=== PATIENT | female | born 1940 | race Caucasian/White ===

== ENCOUNTER 2020-06-10 13:59 | Outpatient (CLI) | payer MEDICARE, BC, SELFPAY ==
--- NOTE | ~2020-06-10 | MM_ITS ---
EXAMINATION: MM screening [facility] w bibiana HISTORY: Screening TECHNIQUE: Craniocaudal and mediolateral oblique 3-D tomosynthesis images were obtained and synthetic 2-D images were generated. CAD analysis was submitted and interpreted. COMPARISON: Comparison to multiple prior studies sequentially, with oldest reviewed study dated 02/28. BREAST PARENCHYMAL COMPOSITION: Breast composed of scattered areas of fibroglandular density FINDINGS: There is no evidence of suspicious mass, calcification, or architectural distortion to sugg est malignancy in either breast. There has been no suspicious interval change. IMPRESSION: 1. No mammographic evidence of malignancy. 2. Recommend routine screening mammography in one year. BI-RADS Category 1: Negative Reviewed, dictated and finalized at location A. 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
== END 2020-06-10 14:00 | disposition home or self-care (01) ==
LOC: ANHIMG 14:08
DX: Z12.31 Encounter for screening mammogram for malignant neoplasm of breast (principal)
CPT/HCPCS: 77063; 77067

== ENCOUNTER 2021-08-25 09:49 | Outpatient (CLI) | payer MEDICARE, BC, SELFPAY ==
--- NOTE | ~2021-08-25 | MM_ITS ---
EXAMINATION: MM screening [facility] BI w bibiana HISTORY: Screening mammogram TECHNIQUE: Craniocaudal and mediolateral oblique 3-D tomosynthesis images were obtained and synthetic 2-D images were generated. CAD analysis was submitted and interpreted. COMPARISON: 06/10/2020, 03/28/2019, 03/23/2018 BREAST PARENCHYMAL COMPOSITION: There are scattered areas of fibroglandular density. FINDINGS: There is no suspicious mass, calcification, or architectural distortion to suggest malignan cy in either breast. There has been no suspicious interval change. IMPRESSION: 1. No mammographic evidence of malignancy. 2. Recommend routine screening mammography in one year. BI-RADS Category 1: Negative Reviewed, dictated and finalized at location A.
== END 2021-08-25 09:50 | disposition home or self-care (01) ==
LOC: ANHIMG 09:52
PROVIDERS: Visit Provider Obstetrics & Gynecology
DX: Z12.31 Encounter for screening mammogram for malignant neoplasm of breast (principal)
CPT/HCPCS: 77063; 77067

== ENCOUNTER 2022-10-22 09:29 | Outpatient (CLI) | payer MEDICARE, BC, SELFPAY ==
--- NOTE | ~2022-10-22 | MM_ITS ---
EXAMINATION: MM screening [facility] BI w bibiana HISTORY: Screening mammogram TECHNIQUE: Craniocaudal and mediolateral oblique 3-D tomosynthesis images were obtained and synthetic 2-D images were generated. CAD analysis was submitted and interpreted. COMPARISON: 08/25/2021, 06/10/2020, 03/28/2019 BREAST PARENCHYMAL COMPOSITION: There are scattered areas of fibroglandular density. FINDINGS: No suspicious mass, calcification, or architectural distortion are identified in either betsy ast to suggest malignancy. There has been no suspicious interval change. IMPRESSION: 1. No mammographic evidence of malignancy. 2. Recommend routine screening mammography while the patient remains in good health. BI-RADS Category 1: Negative Reviewed, dictated and finalized at location A. IMPRESSION: 1. No mammographic evidence of malignancy. 2. Recommend routine screening mammography while the patient remains in good he alth. BI-RADS Category 1: Negative
== END 2022-10-22 09:30 | disposition home or self-care (01) ==
PROVIDERS: Visit Provider Obstetrics & Gynecology
DX: Z12.31 Encounter for screening mammogram for malignant neoplasm of breast (principal)
CPT/HCPCS: 77063; 77067

== ENCOUNTER 2023-04-02 05:29 | Day surgery (SDC) | payer MEDICARE, BC, SELFPAY ==
[2023-04-02] VITALS (16 sets, daily range): BP systolic 109–145; BP diastolic 68–95; PULSE 81–118; RESP 14–221; TEMP 36.9; O2SAT 90–96; BMI 41.0
[2023-04-02 09:46] LABS: Basophils Percent Auto 0.4 % (0.2-1.2); Eosinophils Absolute Auto 0.2 K/mm3 (0-0.3); Hematocrit 38.8 % (37.0-47.0); Hemoglobin 12.5 g/dL (12.0-15.0); Immature Granulocyte Absolute 0.02 K/mm3 (0.00-0.031); Immature Granulocyte Percent A 0.4 % (0-0.5); Lymphocytes Absolute Auto 0.89 K/mm3 (0.9-3.2); Lymphocytes Percent Auto 16.4 % (18.3-44.2); Mean Corpuscular HGB Conc 32.2 g/dl (32-36); Mean Corpuscular Hemoglobin 28.1 pg (26-34); Mean Corpuscular Volume 87.2 fl (80-100); Mean Platelet Volume 9.1 fl (7.4-10.4); Monocytes Absolute Auto 0.4 K/mm3 (0.1-0.6); Neutrophils Absolute Auto 3.9 K/mm3 (1.3-6.7); Neutrophils Percent Auto 71.8 % (45.5-73.1); Platelet Count Result 200 k/mm3 (150-375); Red Blood Count 4.45 M/mm3 (4.2-5.4); Red Cell Distribution Width 14.6 % (11.5-14.5); White Blood Count 5.4 K/mm3 (4.5-10.0)
--- NOTE | 2023-04-02 09:49 | WPDMODSED ---
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 Procedure to be performed/Plan: Left heart catheterization Allergies Allergy/AdvReac Type Severity Reaction Status Date / Time Penicillins Allergy Severe Rash Verified 04/02/23 09:29 oxycodone [From Tylox] AdvReac Unknown Nausea Verified 04/02/23 09:29 Home Medications Medication Instructions Recorded Confirmed Type albuterol sulfate 90 mcg/actuation 2 inh inhalation Q4H PRN Shortness 01/21/22 04/01/23 History aerosol inhaler (ProAir HFA) Of Breath cholecalciferol (vitamin D3) 250 2,000 mcg PO DAILY 01/21/22 04/01/23 History mcg (10,000 unit) capsule denosumab 60 mg/mL subcutaneous 60 mg subcut [id number] 01/21/22 04/01/23 History syringe (Prolia) fluticasone furoate 100 1 inh inhalation DAILY 01/21/22 04/02/23 History mcg-vilanterol 25 mcg/dose inhalation powder (Breo Ellipta) hydrocodone 5 mg-acetaminophen 325 1 tablet PO QHS PRN Pain 01/21/22 04/02/23 History mg tablet isosorbide mononitrate 120 mg 60 mg PO DAILY 01/21/22 04/02/23 History tablet,extended release 24 hr losartan 100 mg tablet 100 mg PO DAILY 01/21/22 04/02/23 History clopidogrel 75 mg tablet 75 mg PO DAILY 04/01/23 04/02/23 History finasteride 5 mg tablet 5 mg PO DAILY 04/01/23 04/01/23 History metoprolol tartrate 25 mg tablet 25 mg PO BID 04/01/23 04/02/23 History Current Medications: Active Medications Sodium Chloride (Normal Saline Iv) 500 mls @ 100 mls/hr IV CONT .Q5H GABRIEL Sedation/Anesthesia: No previous sedation/anesthesia problems (including family history). [facility] Past Medical History Medical History Hypertension Joint pain Sleep apnea CPAP machine Surgical History Surgical History History of arthroscopic knee surgery (~01/2000) History of colon resection (~11/2005) diverticulosis History of cone biopsy of cervix (~1981) History of gastrointestinal surgery 2002 hemorrhoid banding History of knee replacement 11/28/09 right knee left knee at a later date History of laminectomy (~09/28/08) History of spinal fusion (~10/28/16) L4/L5/S1 History of total vaginal hysterectomy (~2005) total vaginal hysterectomy/posterior colporrhapy--focal squamous metaplasia cx, subserosal leiomyma uteri History of tubal ligation (~1979) Family History Family History Mother Hypertension Chronic obstructive lung disease Sibling Hypertension brother Squamous cell carcinoma of skin brother Father Heart disease Alcohol abuse Social History Social History (Updated 01/21/22 @ 10:47 by Dee Segura Leroy) Smoking status: Never smoker Alcohol intake: current Alcohol use details: 2 x year Substance use: never Substance use type: does not use Living arrangements: other Additional living arrangements comments: Occupation/Education: retired Gender identity (if verbalized by the patient): Female Sexual Orientation (if Verbalized by the Patient): Straight or Heterosexual Mod Sed Physical Exam Physical Exam Pre Procedural Exam: Normal: Throat, Airway, Lungs, Heart Rate, Heart Rhythm, Neuro Exam and Extremities and Variation: Appearance (Morbidly obese woman no apparent distress) and Heart Size (PMI not palpable) Hours since solid foods: 12 Hours since liquid intake: 12 Mallampati Classification: class III Internal Medicine - PN: Obj Da Meds/Results Medications: Active Medications Generic Name Dose Route Start Last Admin Trade Name Freq PRN Reason Stop Dose Admin Sodium Chloride 500 mls @ 100 mls/hr 04/02/23 09:00 Normal Saline Iv IV CONT .Q5H GABRIEL Labs 04/02/23 09:14 04/02/23 09:23
[2023-04-02 09:57] LABS: Prothrombin Time 13.7 Seconds (11.1-14.7)
[2023-04-02 09:57] LABS: Alanine Aminotransferase 28 U/L (6-35); Albumin Level 4.5 g/dL (3.5-5.1); Alkaline Phosphatase 44 U/L (38-126); Anion Gap 10 mmol/L (8-16); Aspartate Amino Transferase 25 U/L (14-36); Bilirubin,Total 1.3 mg/dL (0.2-1.3); Blood Urea Nitrogen 12 mg/dL (7-17); Calcium 9.8 mg/dL (8.4-10.2); Carbon Dioxide 26 mmol/L (22-30); Chloride 99 mmol/L (98-107); Estimated Glomerular Filt Rate > 60; Glucose 104 mg/dL (65-110); Potassium 3.9 mmol/L (3.4-5.0); Sodium 135 mmol/L (137-145)
--- NOTE | 2023-04-02 11:01 | P.PCNCC_ITS ---
Cardiac Cath Procedure Note Date of procedure:: 04/02/23 Performing physician:: Marquis Alvarado MD Indication:: history of mild coronary artery disease ventricular arrhythmias abnormal nuclear stress test Brief clinical history:: this is an 83-year-old woman who apparently is but found to have mild coronary disease a couple of years ago angiographically. She is now under the care of 1 of my partners and has been found to have nonsustained ventricular tachycardia. Nuclear stress test suggests evidence of anterior apical ischemia in this setting a follow-up angiogram has been recommended. Procedure Procedure performed:: Coronary angiography Sedation/Medication given:: fentanyl 50 mg Versed 2 mg case start time 1029 a.m. case end time 10:46 a.m. sedation provided by Tarik Rojas RN, trained observer Access site:: right femoral artery Estimated blood loss:: 25 cc Procedure note:: patient was brought to the cardiac catheterization lab in the postabsorptive state where the right femoral triangle was prepped and draped in the usual fashion. Anesthesia was provided with 15 cc of lidocaine infiltrated locally. Using the modified Seldinger technique the femoral artery was punctured and a 5 Azerbaijani mass ocular sheath was placed. After this left heart catheterization was carried out. I used a 5 Azerbaijani angled pigtail catheter to measure left-sided hemodynamics and to inject the left ventriculogram in the [place] projection following this the pigtail catheter was removed. I injected the left coronary artery in multiple projections using a 5 Azerbaijani FL4 catheter. After this a 5 Azerbaijani JR4 catheter was used to engage and inject the right coronary artery in orthogonal projections. Following this the cineangiograms were reviewed and the case was terminated. An angiogram was performed to the femoral artery through the sheath and it was determined that the sheath will be removed with direct manual compression. The procedure was well tolerated and uncomplicated. Results 1. Hemodynamics central aortic pressure is 162 over 78 left ventricle 162/3 end-diastolic pressure 24 there is no gradient on pullback across the aortic valve. The left main coronary artery is widely patent proximal left anterior descending is moderately calcified. The LAD however is free of significant lesions. There are mild luminal irregularities but no flow- limiting stenosis is seen the vessel is patent down to the apex. The circumflex is a large caliber vessel giving rise to OM branches and 2 posterior branches. The circumflex system is smooth and angiographically free of disease. The right coronary artery is codominant terminating in an RPDA. The right coronary is medium in size in the 2nd portion of the RCA there is modest 20-30% stenosis. Left ventriculogram: the left ventricle is mildly dilated there is mild global systolic hypokinesis identified with an ejection fraction globally of 40% by visual estimation. Findings:: As above Conclusion:: 1. codominant coronary artery circulation with no angiographically significant coronary lesions. Approximately 30% stenosis is seen in the mid RCA, calcification in the proximal LAD but no stenotic lesions are seen 2. mild LV enlargement with global hypokinesia ejection fraction in the vicinity of 40% by visual estimation Marquis Alvarado MD [facility]
== END 2023-04-02 16:59 | disposition home or self-care (01) ==
PROVIDERS: Visit Provider Specialist
PROC: 4A023N7 Measurement of Cardiac Sampling and Pressure, Left Heart, Percutaneous Approach (ICD-10-PCS; CPT 93452; principal; 2023-04-02 10:30)
DX: I25.10 Atherosclerotic heart disease of native coronary artery without angina pectoris (principal); I47.20 Ventricular tachycardia, unspecified; R94.39 Abnormal result of other cardiovascular function study; I10 Essential (primary) hypertension; G47.30 Sleep apnea, unspecified; Z98.1 Arthrodesis status; Z79.51 Long term (current) use of inhaled steroids; Z79.02 Long term (current) use of antithrombotics/antiplatelets
CPT/HCPCS: 36415; 80053; 85025; 85610; 93458; C1887; C1894; J1644; J2250; J3010; J7040

== ENCOUNTER 2024-05-25 13:30 | Emergency (ER) | payer MEDICARE, BC, SELFPAY ==
[2024-05-25 14:17] VITALS: BP 170/82; PULSE 74; RESP 16; TEMP 36.4; O2SAT 96
--- NOTE | 2024-05-25 14:24 | ED_ITS ---
HPI - Female Genitourinary General Chief complaint: Urogenital-Female Stated complaint: Bladder infection Time Seen by Provider: 05/25/24 14:24 Source: patient Mode of arrival: ambulatory Limitations: no limitations History of Present Illness HPI Narrative: Olive is an 84-year-old female patient presenting to the clinic today with complaints of possible urinary tract infection. She reports she has tested positive for influenza a and has been having some body aches and chills. She reports over the last 1-2 days she has developed some urinary symptoms with burning with urination and urinary frequency. Denies any back pain or abdominal pain. Related Data Home Medications ?Medication ?Instructions ?Recorded ?Confirmed ?Last Taken ?Type albuterol sulfate 90 mcg/actuation 2 inh inhalation Q4H PRN Shortness 01/21/22 05/25/24 03/29/23 09:00 History aerosol inhaler (ProAir HFA) Of Breath cholecalciferol (vitamin D3) 250 2,000 mcg PO DAILY 01/21/22 05/25/24 04/01/23 09:00 History mcg (10,000 unit) capsule denosumab 60 mg/mL subcutaneous 60 mg subcut [id number] 01/21/22 05/25/24 10/29/22 History syringe (Prolia) hydrocodone 5 mg-acetaminophen 325 1 tablet PO QHS PRN Pain 01/21/22 05/25/24 04/02/23 History mg tablet isosorbide mononitrate 120 mg 60 mg PO DAILY 01/21/22 05/25/24 04/02/23 History tablet,extended release 24 hr losartan 100 mg tablet 100 mg PO DAILY 01/21/22 05/25/24 04/02/23 History metoprolol tartrate 25 mg tablet 25 mg PO BID 04/01/23 05/25/24 04/02/23 History fluocinonide 0.05 % topical topical 01/24/24 01/24/24 Unknown History solution furosemide 20 mg tablet mg PO 01/24/24 03/21/24 Unknown History pentoxifylline 400 mg mg PO 01/24/24 03/21/24 Unknown History tablet,extended release prasugrel 10 mg tablet mg PO 01/24/24 03/21/24 Unknown History triamcinolone acetonide 0.1 % applic topical 01/24/24 03/21/24 Unknown History topical cream finasteride 5 mg tablet mg 05/25/24 Unknown History oseltamivir 75 mg capsule mg 05/25/24 Unknown History prednisone 20 mg tablet mg 05/25/24 Unknown History Allergies Allergy/AdvReac Type Severity Reaction Status Date / Time Penicillins Allergy Severe Rash Verified 05/25/24 14:06 oxycodone (From Tylox) AdvReac Unknown Nausea Verified 05/25/24 14:06 Review of Systems Review of Systems: Pertinent positives per HPI. Patient denies any fever, chills, rash, headache, visual changes, dizziness, cough, runny nose, sore throat, shortness of breath, chest pain, palpitations, nausea, vomiting, diarrhea, constipation, abdominal pain PMFSH Past Medical History Medical History Hypertension Joint pain Sleep apnea CPAP machine Surgical History Surgical History History of arthroscopic knee surgery (~01/2000) History of colon resection (~11/2005) diverticulosis History of cone biopsy of cervix (~1981) History of gastrointestinal surgery 2002 hemorrhoid banding History of knee replacement 11/28/09 right knee left knee at a later date History of laminectomy (~09/28/08) History of spinal fusion (~10/28/16) L4/L5/S1 History of total vaginal hysterectomy (~2005) total vaginal hysterectomy/posterior colporrhapy--focal squamous metaplasia cx, subserosal leiomyma uteri History of tubal ligation (~1979) Family History Family History Mother Hypertension Chronic obstructive lung disease Sibling Hypertension brother Squamous cell carcinoma of skin brother Father Heart disease Alcohol abuse Social History Social History Smoking status: Never smoker Alcohol intake: current Alcohol use details: 2 x year Substance use: never Substance use type: does not use Do You Feel Safe in your Home?: Yes Lack of Transportation: No Lack of Food: Never True Current Housing: I Have Housing Concerned About Future Housing: No Difficulty Paying Gas/Electric Bills: No Difficulty Paying for Meds: No Currently Unemployed: No Education: High School Diploma/GED Difficulty w/ Childcare or Family Care: No Living arrangements: other Additional living arrangements comments: Occupation/Education: retired Gender identity (if verbalized by the patient): Female Sexual Orientation (if Verbalized by the Patient): Straight or Heterosexual Comments At the time of my signature, I reviewed and agree with the nursing past medical, surgical, social, and family history. There is no relevant family history pertinent to the patient complaint. Exam Narrative: General: Well-developed, well nourished, in no apparent distress. Head: Normocephalic, atraumatic. Cardio: Regular rate and rhythm, s1 and s2 normal, no murmur appreciated. Resp: Clear to auscultation bilaterally, no rhonchi, rales, wheezing or rubs. Abdomen: Soft, pliable, bowel sounds present in all quadrants, non-tender to palpation, no organomegly, no CVAT tenderness. Course Course Emergency Course: Portions of this record may have been created with voice recognition software. Level of Care: Express Care Visit Vital Signs Vital signs: Vital Signs Temperature 36.4 C 05/25/24 14:17 Pulse Rate 74 05/25/24 14:17 Respiratory Rate 16 05/25/24 14:17 Blood Pressure 170/82 H 05/25/24 14:17 Pulse Oximetry 96 05/25/24 14:17 Temperature 36.4 C 05/25/24 14:17 Pulse Rate 74 05/25/24 14:17 Respiratory Rate 16 05/25/24 14:17 Blood Pressure 170/82 H 05/25/24 14:17 Pulse Oximetry 96 05/25/24 14:17 Vital signs reviewed MDM - Female Genitourinary MDM Narrative Medical decision making narrative: At the time of visit patient is resting comfortably on the exam table. Patient appears to be nontoxic. Labs: Urinalysis shows trace of leukocytes. Will send urine for culture. Plan: I suspect patient has a UTI. Supportive measures were discussed with the patient and they voiced understanding discharge instructions and agrees to treatment plan. Return precautions reviewed Differential Diagnosis Differential diagnosis: Likely urinary tract infection and cystitis Lab Data Labs: Lab Results 05/25/24 Range/Units 14:28 POC Urine Color Yellow POC Urine Clarity Clear POC Urine pH 6.0 POC Ur Specif [place] 1.020 POC Urine Protein Negative (Negative) POC Ur Glucose (UA) Negative (Negative) POC Urine Ketones Negative (Negative) POC Urine Blood Negative (Negative) POC Urine Nitrite Negative (Negative) POC Urine Bilirubin Negative (Negative) POC Urine Urobilinogen 0.2 POC U Leukocyte Esteras Trace (Negative) Discharge Plan Discharge Clinical Impression: Urinary tract infection Qualifiers: Urinary tract infection type: acute cystitis Hematuria presence: without hematuria Qualified Code(s): N30.00 - Acute cystitis without hematuria Patient Disposition: Home, Self-Care Condition: Stable Instructions: Antibiotic Form, Urinary Tract Infection in Women (ED) Additional Instructions: Take Macrobid as prescribed Urinalysis shows trace of leukocytes. We will send for culture Increase fluids and stay well hydrated Wipe front to back. May use wet wipes. Avoid tub baths If sexually active- pee before and after intercourse. Wear cotton panties Avoid tight clothing up against the genitals Follow up with your PCP in 1 week if symptoms persist. Patient Language: British Prescriptions: New nitrofurantoin monohyd/m-cryst [Macrobid] 100 mg capsule 100 mg PO Q12H 5 Days Qty: 10 0RF Rx Instructions: must administer with a meal/food No Action finasteride 5 mg tablet prednisone 20 mg tablet oseltamivir 75 mg capsule fluocinonide 0.05 % solution topical furosemide 20 mg tablet PO pentoxifylline 400 mg tablet extended release PO prasugrel 10 mg tablet PO triamcinolone acetonide 0.1 % cream topical hydrocodone-acetaminophen 5-325 mg tablet 1 tablet PO QHS PRN (Reason: Pain) Rx Instructions: takes 1 during day, 1/2 at night losartan 100 mg tablet 100 mg PO DAILY isosorbide mononitrate 120 mg tablet extended release 24 hr 60 mg PO DAILY albuterol sulfate [ProAir HFA] 90 mcg/actuation HFA aerosol inhaler 2 inh inhalation Q4H PRN (Reason: Shortness Of Breath) Prolia 60 mg/mL syringe 60 mg subcut [id number] cholecalciferol (vitamin D3) 250 mcg (10,000 unit) capsule 2,000 mcg PO DAILY clobetasol 0.05 % ointment 1 applic topical BID Qty: 30 2RF metoprolol tartrate 25 mg tablet 25 mg PO BID Follow-up/Referrals: Juanita,Grady Harper MD [Primary Care Provider] - Time of Disposition: 14:26 Quality NIHSS Nursing Documentation ED NIHSS nursing documentation: reviewed/agree
[2024-05-25 14:30] LABS: EDUAAPPEAR Clear; EDUABILI Negative (Negative); EDUABLOOD Negative (Negative); EDUACOLOR1 Yellow; EDUAGLUCOSE Negative (Negative); EDUAKETONE Negative (Negative); EDUALEUKO Trace (Negative); EDUANITRATE Negative (Negative); EDUAPROTEIN Negative (Negative); EDUAUROBILI 0.2
== END 2024-05-25 14:32 | disposition home or self-care (01) ==
PROVIDERS: Emergency Provider Nurse Practitioner Family; PCP Family Medicine
DX: N30.00 Acute cystitis without hematuria (principal); B96.4 Proteus (mirabilis) (morganii) as the cause of diseases classified elsewhere; I10 Essential (primary) hypertension; G47.30 Sleep apnea, unspecified; Z96.653 Presence of artificial knee joint, bilateral; Z90.710 Acquired absence of both cervix and uterus
CPT/HCPCS: 81003; 87077; 87086; 87186; 99213; G0463

== ENCOUNTER 2024-06-12 15:24 | Outpatient (CLI) | payer MEDICARE, BC, SELFPAY ==
--- NOTE | ~2024-06-12 | MM_ITS ---
EXAMINATION: MM screening [facility] BI w bibiana HISTORY: Screening mammogram TECHNIQUE: Craniocaudal and mediolateral oblique 3-D tomosynthesis images were obtained and synthetic 2-D images were generated. CAD analysis was submitted and interpreted. COMPARISON: 10/22/2022, 08/25/2021, 06/10/2020 BREAST PARENCHYMAL COMPOSITION:Not Dense. There are scattered areas of fibroglandular density. FINDINGS: No suspicious mass, calcification, or architectural distortion are identified in either betsy ast to suggest malignancy. There has been no suspicious interval change. IMPRESSION: No mammographic evidence of malignancy. Recommend routine screening mammography in one year. BI-RADS Category 1: Negative Reviewed, dictated and finalized at location . [employer]
== END 2024-06-12 15:25 | disposition home or self-care (01) ==
LOC: ANHIMG 15:25
PROVIDERS: PCP Family Medicine; Visit Provider Obstetrics & Gynecology
DX: Z12.31 Encounter for screening mammogram for malignant neoplasm of breast (principal)
CPT/HCPCS: 77063; 77067

== ENCOUNTER 2024-09-08 15:49 | Outpatient (CLI) | payer MEDICARE, BC, SELFPAY ==
--- NOTE | ~2024-09-08 | XR_ITS ---
Supine and upright views of the abdomen Clinical history: Renal stones Findings: Bowel gas pattern is nonspecific. No evidence for obstruction or free air. Small left upper quadrant calcifications appear to be superior to the renal shadow. No definite renal stone seen. Lum bosacral spinal fixation hardware present. Impression: No definite renal stones. Reviewed, dictated and finalized at [facility]. Impression: No definite renal stones.
--- OUTSIDE RECORDS SUMMARY | 2024-09-08 15:54 | XMS_ITS ---
Author Organization [facility] Address [address] [place] [address] Care Team Providers Care Food Chemist Name Role Phone Uyen SIEGEL, Walter Primary Care Provider Sriram Panda [phone] Medications Medication SIG (Take, Route, Frequency, Duration) Notes Start Date End Date Status HYDROcodone-Acetamino phen 5-325 MG 1 tablet Orally every 8 hrs As needed. Dx=low back pain M54.9, joint pain M25.50. Dx=low back pain 09/10/2024 Active Encounters Encounter Location Date Provider Diagnosis [facility] [address] [facility] [address] [address] [place] [address] 07/07/2024 Sriram Gamboa Dorsalgia, unspecified M54.9 Assessments Encounter Date Diagnosis (ICD Code) Assessment Notes Treatment Notes Treatment Clinical Notes Section Notes 07/07/2024 Dorsalgia, unspecified (ICD-10 - M54.9) Plan Of Treatment Medication Medication Name Sig Start Date Stop Date Notes HYDROcodone-Acetaminophen 5-325 MG 1 tablet Orally every 8 hrs 09/10/2024 Dx=low back pain Next Appt Details Provider Name:Sriram gilbert, 10/04/2024 10:30:00 AM, [address] [facility] [address], [place], [address], Progress Notes * Olive ABBOTT JackieDOB:[birth year] (84 yo F)Acc No.[id number]:07/07/2024 Patient: Olive ROB :1940 A ge:84 Y S ex:Female Address:[address] [place] [address], [id number] * Refills Refill HYDROcodone-Acetaminophen Tablet, 5-325 MG, Orally, 90, 1 tablet, every 8 hrs, Refills=0 * true * Date: Generated for Azra guzman/Alden/Justiceitting on: 0 09/08/2024 03:54 PM CDT
--- OUTSIDE RECORDS SUMMARY | 2024-09-08 15:54 | XMS_ITS ---
Author Organization [facility] Address [address] [facility] [address] [place] [address] Care Team Providers Care Circular Sawyer Helper Name Role Phone Uyen SIEGEL, Walter Primary Care Provider Sriram Panda [phone] Allergies Allergen (clinical drug ingredient) Drug/Non Drug Allergy documented on EMR Reaction Allergy Type Onset Date Status ampicillin Ampicillin Unknown Drug Allergy 08/04/2017 Acti ve tramadol Tramadol Reaction: nausea Drug Allergy 12/15/2017 Active REASON FOR VISIT 3 month f/u Medications Medication SIG (Take, Route, Frequency, Duration) Notes Start Date End Date Status Albuterol Active Isosorbide Mononitrate ER 60 MG take 1 tablet (60 mg) by oral route once daily in the morning Oral 1 Active Furosemide 20 MG take 1 tablet (20 mg ) by oral route once daily Oral 1 Active Clindamycin Phos & Cleanser Active Clobeta Ointment Act cristel Vitamin D3 1000 UNIT Oral Active Denosumab 60 MG/ML as directed Subcutaneous Active Gabapentin 100 MG 1 tid Oral 03/20/2021 Active HYDROcodone-Acetamino phen 5-325 MG 1 tablet Orally every 8 hrs As needed. Dx=low back pain M54.9, joint pain M25.50. Dx=low back pain 07/12/2024 Active Tylenol 8 Hour Arthritis Pain 650 MG take 2 tablets (1,300 mg) by oral route every 8 hours swallowing whole with water. Do not break, crush, dissolve and/or chew. Oral 3 Active Metoprolol Tartrate 50 MG 1 tablet with food Orally Twice a day for 30 day(s) Active Isosorbide Mononitrate ER 60 MG 1 tablet in the morning Orally Once a day for 30 day(s) Active Prasugrel HCl 10 MG as directed Orally Active Losartan Potassium 100 MG 1 tablet Orally Once a day for 30 day(s) Active Isosorbide Mononitrate Active Furosemide 20 MG 1 tablet Orally Once a day for 30 day(s) Active Finasteride 5 MG 1 tablet Orally Once a day for 30 day(s) Active Vital Signs Temperature 98.0 degrees Fahrenheit 07/07/19 25 Blood pressure systolic 132 mm Hg 07/07/19 25 Blood pressure diastolic 78 mm Hg 025 Heart Rate 101 /min 07/07/2024 Height 62 in 07/07/2024 Weight 210 lbs 07/07/2024 BMI 38.41 kg/m2 07/07/2024 Oximetry 94 % 07/07/2024 Height-cm 157.48 cm 07/07/2024 Weight-kg 95.24 kg 07/07/2024 Encounters Encounter Location Date Provider Diagnosis [facility] [address] [facility] [address] [place] [address] 07/07/2024 Sriram Gamboa Pain in unspecified joint M25.50 and Dorsalgia, unspecified M54.9 Assessments Encounter Date Diagnosis (ICD Code) Assessment Notes Treatment Notes Treatment Clinical Notes Section Notes 07/07/2024 Pain in unspecified joint (ICD-10 - M25.50) 07/07/2024 Dorsalgia, unspecified (ICD-10 - M54.9) Plan Of Treatment Medication Medication Name Sig Start Date Stop Date Notes HYDROcodone-Acetaminophen 5-325 MG 1 tablet Orally every 8 hrs 07/12/2024 Dx=low back pain Next Appt Details Follow Up: 3 Months, Reason: Provider Name:Sriram gilbert, 10/04/2024 10:30:00 AM, [address], [place], [address], Progress Notes * Olive ABBOTT:[birth year] (84 yo F)Acc No.[id number]:07/07/2024 Progress Notes Patient: Olive ROB Jackie Provider: Dylan Gamboa MD :1940 A ge:84 Y S ex:Female Date:07/07/2024 Address:[address] [place] [address] [address] [place], [id number] Pcp:Walter Qiu MD Subjective: * Chief Complaints: * 3 month f/u * HPI: A dvance Care Planning: Here for f/u of OA spine, LBP. MSK sx better. Diffuse arthralgias are better. Seeing therapist for lymphedema. New dx=lipodermatosclerosis. LE swelling is better. Bowels are OK. Rarely uses cane/walker. * ROS: P os. for back pain, joint pain. * Medical History: * Surgical History: F usion; 7179-06-26xaoznchyqdi/otomy; 3038-31-79Jcvagjjixlcq; 5612-32-56hmhfz surgery; 9581-61-53Ihfi surgery; 2017-08-04 * Hospitalization/Major Diagno stic Procedure: * Family History: M igrated Family History: Family Notes: CHF, COPD and Cancer . * Social History: M igrated Social History: M igrated Social History: :: Seatbelt-WEARS , :: Smoke detectors-PRESENT , Marital Status :: , Occupation :: Retired , Substance Use :: Tobacco :: Former. * Medications: T akingTylenol 8 Hour Arthritis Pain 650 MG Tablet Extended Release take 2 tablets (1,300 mg) by oral route every 8 hours swallowing whole with water. Do not break, crush, dissolve and/or chew. Oral 3 HYDROcodone-Acetaminophen 5-325 MG Tablet 1 tablet Orally every 8 hrs As needed. Dx=low back pain M54.9, joint pain M25.50., Notes to Pharmacist: Dx=low back painClindamycin Phos & Cleanser Furosemide 20 MG Tablet take 1 tablet (20 mg) by oral route once daily Oral 1 Isosorbide Mononitrate ER 60 MG Tablet Extended Release 24 Hour take 1 tablet (60 mg) by oral route once daily in the morning Oral 1 Albuterol Clobeta Ointment Finasteride 5 MG Tablet 1 tablet Orally Once a day Furosemide 20 MG Tablet 1 tablet Orally Once a day Isosorbide Mononitrate Losartan Potassium 100 MG Tablet 1 tablet Orally Once a day Prasugrel HCl 10 MG Tablet as directed Orally Isosorbide Mononitrate ER 60 MG Tablet Extended Release 24 Hour 1 tablet in the morning Orally Once a day Metoprolol Tartrate 50 MG Tablet 1 tablet with food Orally Twice a day Gabapentin 100 MG Capsule 1 tid Oral Denosumab 60 MG/ML Solution Prefilled Syringe as directed Subcutaneous Vitamin D3 1000 UNIT Capsule Oral Medication List reviewed and reconciled with the patientTaking Tylenol 8 Hour Arthritis Pain 650 MG Tablet Extended Release take 2 tablets (1,300 mg) by oral route every 8 hours swallowing whole with water. Do not break, crush, dissolve and/or chew. Oral 3 Taking HYDROcodone-Acetaminophen 5- 325 MG Tablet 1 tablet Orally every 8 hrs As needed. Dx=low back pain M54.9, joint pain M25.50., Notes to Pharmacist: Dx=low back painTaking Clindamycin Phos & Cleanser Taking Furosemide 20 MG Tablet take 1 tablet (20 mg) by oral route once daily Oral 1 Taking Isosorbide Mononitrate ER 60 MG Tablet Extended Release 24 Hour take 1 tablet (60 mg) by oral route once daily in the morning Oral 1 Taking Albuterol Taking Clobeta Ointment Taking Finasteride 5 MG Tablet 1 tablet Orally Once a day Taking Furosemide 20 MG Tablet 1 tablet Orally Once a day Taking Isosorbide Mononitrate Taking Losartan Potassium 100 MG Tablet 1 tablet Orally Once a day Taking Prasugrel HCl 10 MG Tablet as directed Orally Taking Isosorbide Mononitrate ER 60 MG Tablet Extended Release 24 Hour 1 tablet in the morning Orally Once a day Taking Metoprolol Tartrate 50 MG Tablet 1 tablet with food Orally Twice a day Taking Gabapentin 100 MG Capsule 1 tid Oral Taking Denosumab 60 MG/ML Solution Prefilled Syringe as directed Subcutaneous Taking Vitamin D3 1000 UNIT Capsule Oral Medication List reviewed and reconciled with the patient * Allergies: A mpicillin: Allergy - Onset Date 08/04/2017Tramadol: Reaction: nausea - Allergy - Onset Date 12/15/2017 Objective: * Vitals: B P:132/78mm Hg, HR:101/min, Temp:98.0F, Oxygen sat %:94%, Wt:210lbs, Wt- k.24kg, Ht:62in, Ht-cm:157.48cm, BMI:38.41Index, Body Surface Area:2.04. * Examination: G eneral Examination: P hysical Examination Constitutional Appearance : well nourished, alert, in no acute distress Head and Face/Head : NC/AT Inspection : normocephalic, atraumatic Eyes/Conjunctivae : conjunctiva normal Sclerae : sclera white Psychiatric/Judgment and Insight : judgment and insight intact Mood and Affect : mood normal, affect appropriate Cervical Spine: normal curvatures Right Upper Extremity Hand : NS Left Upper Extremity Hand : NS Gait: gait normal . Assessment: * Assessment: 1. D orsalgia, unspecified - M54.9 (Primary) S pecify :Src Problem: Back Pain 2 . P ain in unspecified joint - M25.50 S pecify :Src Problem: Joint Pain Plan: * Treatment: * Procedure Codes: G 2211 Complex e/m visit add on * Preventive Medicine: D iscussed opioid risks including addiction, overdose, abuse, constipation, confusion, sedation . * Follow Up: 3 Months * Billing Information: * Visit Code: 06290 Office Visit, Est Pt., Level 3. * Procedure Codes: G2211 Complex e/m visit add on. * NESS BANKING OFFICER Sign off status: Completed true * Provider: Dylan Gamboa MD Date: 0 07/07/2024 Generated for Azra guzman/Alden/Danuta on: 0 09/08/2024 03:54 PM CDT History and Physical Notes * Examination Category Sub-Category Detail Notes Category Not es General Examination Physical Examination Constitutional Appearance : well nourished, alert, in no acute distress Head and Face/Head : NC/AT Inspection : normocephalic, atraumatic Eyes/Conjunctivae : conjunctiva normal Sclerae : sclera white Psychiatric/Judgment and Insight : judgment and insight intact Mood and Affect : mood normal, affect appropriate Cervical Spine: normal curvatures Right Upper Extremity Hand : NS Left Upper Extremity Hand : NS Gait: gait normal
--- OUTSIDE RECORDS SUMMARY | 2024-09-08 15:54 | XMS_ITS | Encounter Summary ---
Author Organization [facility] Care Team Providers Care Travel Pta Name Role Phone Kelle Kumar NP Unavailable [phone] Sriram Greer MD Unavailable [phone] Castro Guerrier MD Unavailable [phone] Herrera Jorge MD Unavailable [phone] Walter Qiu MD Primary Care Provider [phone] Winston Sotelo MD Unavailable Trudy Camp MA Unavailable Unavailable Grady Grant MD Primary Care Provider [phone] Zoe Villalpando MD Unavailable [phone] Encounter Details Date Type Department Care Team (Latest Contact Info) Description 07/13/2016 Orders Only [facility] ProviderTatyana MD [address] [place] [id number] Social History Tobacco Use Types Packs/Day Years Used Date Smoking Tobacco: Never Assessed Comments Unknown Sex and Gender Information Value Date Recorded Sex Assigned at Not on file Legal Sex Female 1:00 AM [employer] Gender Identity Female 02/12/2021 8:58 AM CDT Sexual Orientation Straight 04/21/2020 5: 12 PM [employer] documented as of this encounter Plan of Treatment Not on file documented as of this encounter Procedures Procedure Name Priority Date/Time Associated Diagnosis Comments SCAN - LABS 07/14/2016 12:00 AM [employer] documented in this encounter Results * SCAN - LABS (07/14/2016 12:00 AM 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 us Historical Provider MD Final Res ult documented in this encounter Visit Diagnoses Not on filedocumented in this encounter Additional Health Concerns Infection Onset Date Last Indicated Resolved Time MRSA Comment:Nares: 07/02/22 07/02/2022 07/02/2022 12/29/2022 3:05 AM CDT COVID: Suspected 05/22/2024 05/22/2024 05/22/2024 2:40 PM AIRPLANE PATR[employer] PIL[employer] Influenza, adult 05/22/2024 05/22/2024 05/29/2024 3:05 AM [employer] PATR[employer] documented as of this encounter Care Teams Travel Pta Relationship Specialty Start Date End Date Walter Qiu MD [address] [place] [address] PCP - General Internal Medicine 04/22/20 09/26/23 Grady Grant MD [address] [place] [id number] PCP - General Family Medicine 09/27/23 Kelle Kumar, DOG OBEDIENCE INSTRUCTOR Gastroenterology 09/28/18 Sriram Greer MD [address], [place] [address] Consulting Physician Rheumatology 12/05/18 Castro Guerrier MD [address] [place] [address] Referring Physician Gastroenterology 12/05/18 Herrera Jorge MD [address] [place] [address] Referring Physician Orthopedic Surgery 04/21/20 Winston Sotelo MD [address] [facility] [address] [facility] [address] [place] [address] Consulting Physician Pain Management 07/10/22 10/31/23 Trudy Camp MA [address] [place] [address] ACO Care Fleet Administrative Assistant 09/17/23 09/20/23 Zoe Villalpando MD [address] [facility] [address] [place] [address] Referring Physician Dermatology 09/27/23 documented as of this encounter
--- OUTSIDE RECORDS SUMMARY | 2024-09-08 15:54 | XMS_ITS | Continuity of Care Document ---
Author Organization [employer] Address [address] [place] [address] Phone Care Team Providers Care Personnel Clerks Supervisor Name Role Phone Castro Mooney DO Unavailable Unavailable Allergies, Adverse Reactions, Alerts Substance Reaction Status Criticality ampicillin Active No Information Medications Medication Instructions Dosage Effective Dates (start - stop) Status Comments losartan 100 mg tablet take 1 tablet by oral route every day 100 MG - Active furosemide 20 mg tablet take 1 tablet by oral route every day 20 MG - Active Sucraid 8,500 unit/mL oral solution take 1 milliliter by oral route before and after each meal or snack 8500 UNITS - Active [place] 5 mg-325 mg tablet take 1 tablet by oral route every 8 hours as needed for pain 1 tablet - Active Procedures Procedure Date Pt inelig neg scrn depres OFFICE [id number] BODY MASS INDEX DOCD SYST BP >= 140 MM HG6 IT DIAST BP >= 90 MM HG Pt inelig neg scrn depres OFFICE [id number] BODY MASS INDEX DOCD SYST BP >= 140 MM HG6 IT DIAST BP >= 90 MM HG Pt inelig neg scrn depres OFFICE [id number] Pt inelig neg scrn depres FALL PLAN OF CARE DOC'D URINE INCON PLAN DOC'D PRES/ABSN URINE INCON ASSESS CBC, INC PLATELETS AND DIFFERENTIAL COMPREHEN METABOLIC PANEL CMP 0 HEMOGLOBIN A1C HGA1C, GLYCO LIPID PANEL THYROID STIMULATION HORMONE(TSH) 2019 VITAMIN D, 25-HYDROXY ROUTINE VENIPUNCTURE OFFICE [id number]-MED BODY MASS INDEX DOCD SYST BP >= 140 MM HG6 IT DIAST BP 80-89 MM HG Advance Directives Directive Yes / No Effective Date File Name No Information Encounters Encounter Description Practice Location Reason(s) For Visit Diagnoses Date Provider Providers Copied on Encounter [employer] [address], [place], [place], [id number] , tel: [phone] Administration No Information 0 Vinicio Erazo. [address], [address], [place], [place], [address] , [place]. tel: [phone] OFFICE MEMIH-LUE-DT [employer], [address], [place], [place], [address] , tel: [phone] [facility] [employer] [facility] Follow up chronic conditions (chief complaint) Body mass index (BMI) 40.0-44.9, adultEssential (primary) hypertensionGan glion cyst of finger of right hand 0 Vinicio Erazo. [address], [address], [place], [place], [address] , [place]. tel: [phone] Referring Provider: Castro Mooney, [address], [place], [address] . tel:[phone] OFFICE NJYXZ-SXM-FC [employer], [address], [place], [place], [address] , [place] tel: [phone] [facility] [employer] [facility] Follow up chronic conditions (chief complaint) Essential (primary) hypertensionOSA on CPAPHyperlipide clau, unspecified hyperlipidemia typePrediabetes 0 Vinicio Erazo. [address], [address], [place], [place], [address] , [place]. tel: [phone] Referring Provider: Castro Mooney, [address], [place], [address] . tel:[phone] [facility], [address], [place], [place], [address] , [place] tel: [phone] [facility] Follow up chronic conditions (chief complaint) Essential (primary) hypertensionHyp erlipidemia, unspecified hyperlipidemia typeSpinal stenosis of lumbar region with neurogenic claudicationOSA on CPAP 0 Vinicio Erazo. [address], [address], [place], [place], [address] , [place]. tel: [phone] Referring Provider: Castro Mooney, [address], [place], [address] . tel:[phone] [facility], [address], [place], [place], [address] , [place] tel:[phone] [facility] Medicare preventive (chief complaint)N ew pt (chief complaint) Body mass index (BMI) 39.0-39.9, adultEssential (primary) hypertensionOSA on CPAPDependence on other enabling machines and devicesSpinal stenosis of lumbar region with neurogenic claudicationHyp erlipidemia, unspecified hyperlipidemia typeEncounter for long-term (current) use of other medicationsPred iabetesEncounte r for vitamin deficiency screeningHepato megalyClass 2 severe obesity due to excess calories with serious comorbidity and body mass index (BMI) of 39.0 to 39.9 in adult 0 Vinicio Erazo. [address], [address], [place], [place], [address] , [place]. tel:[phone] Referring Provider: [address], [place], [address] . tel:[phone] Family History Family Member Type Diagnosis Age At Onset Brother Problem (finding) alcoholism Father Problem (finding) hypertension Mother Problem (finding) Obesity Father Problem (finding) coronary arterioscleros is Mother Problem (finding) coronary arterioscleros is Father Problem (finding) alcoholism Mother Problem (finding) hypertension Brother Problem (finding) coronary arterioscleros is Brother Problem (finding) hypertension Sister Problem (finding) hypertension Father Problem (finding) Renal disease Payers Payer name Insurance type Covered libertarian ID Deborah mendoza(s) MEDICARE CISCO [id number] BCBS ACCESS CHOICE BL [id number] Social History Type Description Quantity Date Captured Comments Sex Female Smoking Status No Information Chief Complaint And Reason For Visit No Information Reason For Referral Reason For Referral No Information Plan Of Treatment Date Type Action Status Goal Dietary management education , guidance, and counseling completed Goal Dietary management education , guidance, and counseling completed History Of Present Illness Encounter Date Complaint History Of Prese nt Illness Follow up chronic conditions Hav ing aching with clonidine patch but no nausea or other side effects. BP this morning was high. Still taking losartan daily and furosemide daily. Has gained 3 pounds in the past 2 weeks. Multiple medicine intolerances. Lump on right ring finger that has been there for years but recently got bigger and was tender but not now. Follow up chronic conditions Kolby ing Sucraid for sucrase-isomaltase deficiency and it helps with diarrhea and has better formed stools. Takes norco about 1 1/2 tabs per day for back and leg pain and has had [address] Guy did surgery. Saw Dr. Greer to rule out RA and it was negative but he still prescribes the norco. She had an injection in April and got numbness for 3 hours in her legs and was done by pain doctor in [facility]. Saw cardiology, Dr. Suazo about 10 years ago and had cath and possibly renal artery stenosis and ultrasound did not show ROSHAN. Has NICOLLE and uses CPAP machine. She is sleeping well now. Sleeping well now and sleeps about 7 1/2 hours per night. Obesity with comorbidity of HTN, hyperlipemia, NICOLLE.She thinks she had the shingles vaccine but not shingrix vaccine.HTN - taking losartan. Taking furosemide due to swelling only as needed. Cutting back on salt intake. Last ov bystolic was added but made her feel sick so she switched to hydralazine and it also made her feel sick. Had been on amlodipine in the past and it also made her feel sick.. Takes e lyte and drinks gatorade. Covid-19 - she is not leaving the house very often. Follow up chronic conditions T his is a Telehealth visitTaking Sucraid for sucrase-isomaltase deficiency and it helps with diarrhea and has better formed stools. Takes norco about 1 1/2 tabs per day for back and leg pain and has had [address] Guy did surgery. Saw Dr. Greer to rule out RA and it was negative but he still prescribes the norco. Saw him the week before last. She had an injection in April and got numbness for 3 hours in her legs and was done by pain doctor in [facility]. Saw cardiology, Dr. Suazo about 10 years ago and had cath and possibly renal artery stenosis and ultrasound did not show ROSHAN. Has NICOLLE and uses CPAP machine. She is sleeping well now. Sleeping well now and sleeps about 7 1/2 hours per night. Obesity with comorbidity of HTN, hyperlipemia, NICOLLE.She thinks she had the shingles vaccine but not shingrix vaccine.HTN - taking losartan. Taking furosemide due to swelling only as needed. Cutting back on salt intake. She had a BP monitor and is 145/85 usually. Having cramping from the low back down to her feet. Takes e lyte and drinks gatorade. Would like to take a manganese supplement.Covid-19 - she is not leaving the house. New pt New pt here to e lelandPrevious PMD: Dr. Ama Osorio. She moved from [place] to [place]. The last time she saw her was a couple of years ago. She has been seeing her PA. PMH: All, Arthritis, GERD, HTN, IBS, OA, hepatomegaly and is seeing Dr. Guerrier for treatment. Also has prediabetes. PSH: Back surgery X2, cataract. 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 Had colonoscopy in 2011 and colon polyps. Hx of colon polyps and has had hemicolectomy for diverticulitis. Taking Sucraid for sucrase-isomaltase deficiency and it helps with diarrhea and has better formed stools. Takes norco about 1 1/2 tabs per day for back and leg pain and has had [address] Guy did surgery. Saw Dr. Greer to rule out RA and it was negative but he still prescribes the norco. Saw cardiology, Dr. Suazo about 10 years ago and had cath and possibly renal artery stenosis and ultrasound did not show ROSHAN. Has NICOLLE and uses CPAP machine. She is sleeping well now. Sleeping well now and sleeps about 7 1/2 hours per night. Obesity with comorbidity of HTN, hyperlipemia, NICOLLE.She thinks she had the shingles vaccine but not shingrix vaccine. Medicare preventive The patient has not felt depressed and has had interest and pleasure doing things recently. The ''Up and Go'' test took less than 30 seconds and the patient does not need help with activities of daily living. The patient is not at risk for falls. The patient has not fallen in the last year. The fall(s) did not result in injury. The patient has smoke detectors, electric heating in the home. The patient does not have firearms, carbon monoxide detectors in the home. There is radon in the patient's home. Patient reports using a seatbelt in vehicles. Patient is a former tobacco user. Functional Status Date Functional Assessmen t No Information Instructions Date Instruction Additional Infor gilbert Make appt with hand surgeon, Dr. Hoffman. Related to Ganglion cyst of finger of right hand Uncontrolled. Increa se clonidine to 0.2 mg patches. Related to Essential (primary) hypertension Dietary management e ducation, guidance, and counseling Related to Body mass index (BMI) 40.0-44.9, adult Disease process Eat a healthy diet a nd work on weight loss.Status: Meeting treatment plan goals. Related to Prediabetes Continue losartan an d start clonidine 0.1 mg/hr patch Related to Essential (primary) hypertension Eat a heart healthy diet Related to Hyperlipidemia, unspecified hyperlipidemia type Continue CPAP Related to NICOLLE o n CPAP Disease process Continue CPAP Related to NICOLLE o n CPAP Continue radhaco from Dr. Rigo isaacs Related to Spinal stenosis of lumbar region with neurogenic claudication Continue losartan an d start bystolic 1 daily in the morning. Related to Essential (primary) hypertension Eat a heart healthy diet Related to Hyperlipidemia, unspecified hyperlipidemia type Disease process Followed by GI. Related to Hepat omegaly Labs drawn today Related to Enco unter for vitamin deficiency screening Labs drawn today Related to Pred iabetes Labs drawn today. Related to Hyp erlipidemia, unspecified hyperlipidemia type Labs drawn today Related to Enco unter for long-term (current) use of other medications Controlled. Continue current treatment with losartan. Get old records from Dr. Demetria Luu. Related to Essential (primary) hypertension Continue CPAP. Related to NICOLLE o n CPAP Continue norco for pain control. Related to Spinal stenosis of lumbar region with neurogenic claudication Disease process Dietary management e ducation, guidance, and counseling Related to Body mass index (BMI) 39.0-39.9, adult Assessments Type Assessment Date No Information Patient Care Teams Name Effective Dates (start - stop) Status Members No Information
--- OUTSIDE RECORDS SUMMARY | 2024-09-08 15:54 | XMS_ITS | Encounter Summary ---
Author Organization [facility] Facility Care Team Providers Care Washer And Capper Machine Operator Name Role Phone Kelle Kumar NP Unavailable [phone] Sriram Greer MD Unavailable [phone] Castro Guerrier MD Unavailable [phone] Herrera Jorge MD Unavailable [phone] Walter Qiu MD Primary Care Provider [phone] Winston Soteol MD Unavailable Trudy Camp MA Unavailable Unavailable Grady Grant MD Primary Care Provider [phone] Zoe Villalpando MD Unavailable [phone] Encounter Details Date Type Department Care Team (Latest Contact Info) Description 06/25/2016 Orders Only [facility] ProviderTatyana MD [address] [place] [address] Social History Tobacco Use Types Packs/Day Years Used Date Smoking Tobacco: Never Assessed Comments Unknown Sex and Gender Information Value Date Recorded Sex Assigned at Not on file Legal Sex Female 1:00 AM SHEET PILE DRIVER OPERATOR Gender Identity Female 02/12/2021 8:58 AM CDT Sexual Orientation Straight 04/21/2020 5: 12 PM SHEET PILE DRIVER OPERATOR documented as of this encounter Plan of Treatment Not on file documented as of this encounter Procedures Procedure Name Priority Date/Time Associated Diagnosis Comments PROCEDURE - RESULT 07/02/2016 12 :00 AM SHEET PILE DRIVER OPERATOR documented in this encounter Results * PROCEDURE - RESULT (07/02/2016 12:00 AM SHEET PILE DRIVER OPERATOR) Narrative 07/02/2016 12:00 AM SHEET PILE DRIVER OPERATOR Ordered by an unspecified provider. us Historical Provider MD Final Res ult documented in this encounter Visit Diagnoses Not on filedocumented in this encounter Additional Health Concerns Infection Onset Date Last Indicated Resolved Time MRSA Comment:Nares: 07/02/22 07/02/2022 07/02/2022 12/29/2022 3:05 AM CDT COVID: Suspected 05/22/2024 05/22/2024 05/22/2024 2:40 PM SHEET PILE DRIVER OPERATOR Influenza, adult 05/22/2024 05/22/2024 05/29/2024 3:05 AM SHEET PILE DRIVER OPERATOR documented as of this encounter Care Teams Washer And Capper Machine Operator Relationship Specialty Start Date End Date Walter Qiu MD [address] [place] [address] PCP - General Internal Medicine 04/22/20 09/26/23 Grady Grant MD [address] [place] [address] PCP - General Family Medicine 09/27/23 Kelle Kumar, CHIEF STRATEGY OFFICER Gastroenterology 09/28/18 Sriram Greer MD [address], [place] [address] Consulting Physician Rheumatology 12/05/18 Castro Guerrier MD [address] [place] [address] Referring Physician Gastroenterology 12/05/18 Herrera Jorge MD [address] [place] [address] Referring Physician Orthopedic Surgery 04/21/20 Winston Sotelo MD [address] [facility] [address] [facility] [address] [place] [address] Consulting Physician Pain Management 07/10/22 10/31/23 Trudy Camp MA [address] [address] [place] [address] ACO Care Project Estimator 09/17/23 09/20/23 Zoe Villalpando MD [address] [facility] [address] [place] [address] Referring Physician Dermatology 09/27/23 documented as of this encounter
--- OUTSIDE RECORDS SUMMARY | 2024-09-08 15:54 | XMS_ITS ---
Author Organization [facility] Address [address] [place], [place] [address] Care Team Providers Care Equipment Planner Name Role Phone JONH ESQUIVEL Unavailable [phone] Grady Grant Unavailable Unavailable Allergies Allergen (clinical drug ingredient) Drug/Non Drug Allergy documented on EMR Reaction Allergy Type Onset Date Status ampicillin Ampicillin Unknown Drug Allergy 09/13/2012 acti ve REASON FOR VISIT Patient presents for at-risk foot care . The patient has painful toenails and calluses that are causing difficulty with ambulation and shoegear. 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, bilateral legs I70.213 and Acquired keratosis [keratoderma] palmaris et plantaris L85.1 Assessments Encounter Date Diagnosis (ICD Code) Assessment Notes Treatment Notes Treatment Clinical Notes Section Notes 06/26/2024 Tinea unguium (ICD-10 - B35.1) Nails 1-5 Bilateral were debrided extensively with nail nippers and emery board, reducing length and girth to pink healthy tissue with any subungual debris and necrotic tissue removed 06/26/2024 Pain in right foot (ICD-10 - M79.671) 06/26/2024 Pain in left foot (ICD-10 - M79.672) 06/26/2024 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, bilateral legs (ICD-10 - I70.213) 06/26/2024 Acquired keratosis [keratoderma] palmaris et plantaris (ICD-10 - L85.1) A total of 2 corns or calluses, as described in the note above, were cut and pared utilizing a #15 blade Plan Of Treatment Treatment Notes Assessment Notes Tinea unguium Nails 1-5 Bilateral were debrided extensively with nail nippers and emery board, reducing length and girth to pink healthy tissue with any subungual debris and necrotic tissue removed Acquired keratosis [keratode rma] palmaris et plantaris A total of 2 corns or calluses, as described in the note above, were cut and pared utilizing a #15 blade Next Appt Details Follow Up: 10 - 12 weeks, Re ason: At-Risk Foot care, sooner if problems develop. Provider Name:JONH ESQUIVEL, 01:20:00 PM, [address], [address], [id number], Progress Notes * LOUANN GUTIERREZ DDOB:[birth year] (84 yo F)Acc No.[id number]:06/26/2024 Patient: LOUANN ROB Provider: Max Esquivel DPM :1940 A ge:84 Y S ex:Female Date:06/26/2024 Address:[address] [place], [place] [address] Subjective: * Chief Complaints: * Anjelica gracia presents for at-risk foot care . The patient has painful toenails and calluses that are causing difficulty with ambulation and shoegear. The onset is gradual * HPI: H PI: General care Anjelica gracia presents to the office for at risk foot care. Patient states that their nails are thickened, elongated and painful. Patient states that it is aggravated by shoe gear. Onset is gradual. Patient denies being diabetic., Patient is taking prescription blood thinners., Date last seen by Dr. Grant was April 2024., Initials LB. * Medical History: * Surgical History: * Hospitalization/Major Diagno stic Procedure: * Family History: F ather: PRN - Father: :: known absent , :: Hypertension,,known absent . M other: PRN - Mother: :: COPD,,known absent , :: Hypertension,,known absent . B rother: SIB - Brother: :: Cancer,,known absent . S ister: SIB - Sister: . * Social History: M igrated Social History: M igrated Social History: History of tobacco use : , Alcohol intake : , Smoking Status : Former smoker. * Medications: * Allergies: A mpicillin: Allergy - Onset Date 09/13/2012no[Allergies Verified] Objective: * Vitals: * Examination: P hysical Examination: General appearance: A lert, pleasant, well-nourished and in no acute distress. D ermatologic: Skin findings: S kin is thin, atrophic and lacking pedal hair. Hypertrophic / hyperkeratotic lesion: p lantar aspect of the right hallux and right 2nd metatarsal head. Nail pathology: N ails 1, 2, 3, 4, and 5 bilateral are elongated, thick, discolored, and dystrophic with subungual debris. They are painful to palpation. ? V ascular: Dorsalis pedis pulse: 1 /4 b ilateral. Posterior tibial pulse: 0 /4 bilateral. Capillary refill: g reater than 3 seconds. Edema: N o edema bilateral. N eurologic: Gross sensation G rossly intact to light touch. There is negative Tinel's sign. M usculoskeletal: Muscle Strength M uscle strength is 5/5 in regards to dorsiflexion, plantarflexion, inversion, and eversion in bilateral lower extremities. ? Assessment: * Assessment: 1. T inea unguium - B35.1 (Primary) 2 . P ain in right foot - M79.671 ? 3 . P ain in left foot - M79.672 4 . A therosclerosis of poarch arteries of extremities with intermittent claudication, bilateral legs - I70.213 5 . Acquired keratosis [keratoderma] palmaris et plantaris - L85.1 Plan: * Treatment: 2. A cquired keratosis [keratoderma] palmaris et plantaris Notes: A total of 2 corns or calluses, as described in the note above, were cut and pared utilizing a #15 blade * Procedure Codes: 1 1056 TRIM SKIN LESIONS, 2 TO 4, Modifiers: Q8 00001 DEBRIDE NAIL, 6 OR MORE, Modifiers: 59 , Q8 * Follow Up: 1 0 - 12 weeks (Reason: At-Risk Foot care, sooner if problems develop.) * Billing Information: * Visit Code: * Procedure Codes: 55099 TRIM SKIN LESIONS, 2 TO 4. Modifiers: Q8 43237 DEBRIDE NAIL, 6 OR MORE. Modifiers: 59, Q8 * DE GAME TECHNICIAN Sign off status: Completed true * Provider: Max Esquivel DPM Date: 0 06/26/2024 Generated for Azra Sharpe/Danuta on: 0 09/08/2024 03:54 PM CDT History and Physical Notes * HPI (History of Present Illness) Category Sub-Category Detail Notes Category Not es HPI General care Patient presents to the office for at risk foot care. Patient states that their nails are thickened, elongated and painful. Patient states that it is aggravated by shoe gear. Onset is gradual. Patient denies being diabetic., Patient is taking prescription blood thinners., Date last seen by Dr. Grant was April 2024., Initials LB Examination Category Sub-Category Detail Notes Category Not es Dermatologic Skin findings: Skin is thin, at rophic and lacking pedal hair Nail pathology: Nails 1, 2, 3, 4, an d 5 bilateral are elongated, thick, discolored, and dystrophic with subungual debris. They are painful to palpation Hypertrophic / hyperkeratotic lesion: pl radha aspect of the right hallux and right 2nd metatarsal head Neurologic Gross sensation Grossly intact t o light touch. There is negative Tinel's sign Vascular Dorsalis pedis pulse: 1/4 bilateral Edema: No edema bilateral Capillary refill: greater than 3 secon ds Posterior tibial pulse: 0/4 bilateral Physical Examination General appearance: Alert, pleasant, well-nourished and in no acute distress Musculoskeletal Muscle Strength Muscle strength is 5/5 in regards to dorsiflexion, plantarflexion, inversion, and eversion in bilateral lower extremities
--- OUTSIDE RECORDS SUMMARY | 2024-09-08 15:54 | XMS_ITS | Encounter Summary ---
Author Organization [facility] Healthcare Address [address] [place] [address] Care Team Providers Care Spanisher Name Role Phone GhadacristhianKelle jha TEST DESKMAN Unavailable Sriram Greer MD Unavailable [phone] Castro Guerrier MD Unavailable [phone] Herrera Jorge MD Unavailable [phone] Grady Grant MD Primary Care Provider [phone] Zoe Villalpando MD Unavailable [phone] Encounter Details Date Type Department Care Team (Late st Contact Info) Description 09/06/2024 Results Follow-Up [facility] Primary Care at [address] [address] Grady Grant MD [address] [place] [address] [address] [place] [address] Social History Tobacco Use Types Packs/Day Years Used Date Smoking Tobacco: Former Cigarettes 0.3 20 0 05/31/1980 - 05/31/2000 Passive Smoke Exposure: Past Smokeless Tobacco: Never Alcohol Use Standard Drinks/Week Comments Not Currently 0 (1 standard drink = 0.6 oz pur e alcohol) AUDIT-C Answer Date Recorded Q1: How often do you have a drink containing alcohol? Never 05/05/2023 Q2: How many drinks containi ng alcohol do you have on a typical day when you are drinking? Patient does not drink 3 Q3: How often do you have si x or more drinks on one occasion? Never 05/05/2023 PHQ-2 Answer Date Recorded PHQ-2 Total Score (If total score is 3 or more points, staff should administer the PHQ-9) 0 05/08/2024 Personal Safety Answer Date Recorded Have you ever been in or are you currently in a harmful physical or emotional relationship or is someone making you feel afraid or unsafe? Denies 09/16/2023 Comments No Sex and Gender Information Value Date Recorded Sex Assigned at Not on file Legal Sex Female 1:00 AM VISUAL ARTIST Gender Identity Female 02/12/2021 8:58 AM CDT Sexual Orientation Straight 04/21/2020 5: 12 PM VISUAL ARTIST documented as of this encounter Plan of Treatment Not on file documented as of this encounter Visit Diagnoses Not on filedocumented in this encounter Care Teams Spanisher Relationship Specialty Start Date End Date Grady Grant MD [address] [place] [address] PCP - General Family Medicine 09/27/23 Kelle Kumar NP Gastroenterology 09/28/18 Sriram Greer MD [address] [facility] [address], [place] [address] Consulting Physician Rheumatology 12/05/18 Castro Guerrier MD [address] [facility] [address] [address] Referring Physician Gastroenterology 12/05/18 Herrera Jorge MD [address] [place] [address] Referring Physician Orthopedic Surgery 04/21/20 Zoe Villalpando MD [address] [facility] 3L [place] [address] Referring Physician Dermatology 09/27/23 documented as of this encounter
--- OUTSIDE RECORDS SUMMARY | 2024-09-08 15:54 | XMS_ITS | Encounter Summary ---
Author Organization [facility] Healthcare Address [address] [place] [address] Care Team Providers Care Graphic Art Technician Name Role Phone GhadacristhianShayy jhaena Winsome SILVICULTURE FORESTER Unavailable [phone] Sriram Greer MD Unavailable Castro Guerrier MD Unavailable [phone] Herrera Jorge MD Unavailable [phone] Grady Grant MD Primary Care Provider [phone] Zoe Villalpando MD Unavailable [phone] Reason for Referral * Consultation (Urgent) - Authorized Specialty Diagnoses / Procedures Referred By Contac t Referred To Contact Urology Diagnoses Gross hematuria Grady Grant MD [address] [facility] [address] [place] [address] Phone: tel: fax: Migdalia Alfonso MD [address] [place] [address] Phone: tel: fax: Referral ID Status Reason Start Date Expiration Date Visits Requested Visits Authorized [id number] Authorized Specialty Services Required 09/04/2024 10/04/2025 1 1 Question Answer Please select the performing region: External Order [171] To provider: MIGDALIA ALFONSO [[id number]] # of visits: 1 Encounter Details Date Type Department Care Team (Late st Contact Info) Description 09/04/2024 Results Follow-Up [facility] Primary Care at [address] [address] Grady Grant MD [address] [facility] [address] [place] [address] Gross hematuria (Primary Dx) Social History Tobacco Use Types Packs/Day Years [...] you are drinking? Patient does not drink Q3: How often do you have si [...] on file Legal Sex Female 1:00 AM IMMERSION METALCLEANER Gender Identity Female 02/12/2021 8:58 AM CDT Sexual Orientation Straight 04/21/2020 5: 12 PM IMMERSION METALCLEANER documented as of this encounter Plan of Treatment Scheduled Referrals Name Type Priority Associated Diagnoses Order Schedule Ambulatory referral to Urology Outpatient Referral Urgent Gross hematuria Expected: 09/18/2024 (Approximate), Expires: 09/04/2025 documented as of this encounter Visit Diagnoses Diagnosis Gross hematuria- Primary documented in this encounter Care Teams Graphic Art Technician Relationship Specialty Start Date End Date Grady Grant MD [address] [place] [address] PCP - General Family Medicine 09/27/23 Kelle Kumar NP Gastroenterology 09/28/18 Sriram Greer MD [address] [facility] [address] [address] Consulting Physician Rheumatology 12/05/18 [place] Guerrier MD [address] [address] Referring Physician Gastroenterology 12/05/18 Herrera Jorge MD [address] [place] [address] Referring Physician Orthopedic Surgery 04/21/20 Zoe Villalpando MD [address] [facility] 3 [place] [address] Referring Physician Dermatology 09/27/23 documented as of this encounter
--- OUTSIDE RECORDS SUMMARY | 2024-09-08 15:54 | XMS_ITS | Encounter Summary ---
Author Organization [facility] Care Team Providers Care Music Education Adjunct Professor Name Role Phone Kelle Kumar NP Unavailable [phone] Sriram Greer MD Unavailable [phone] [place] Guerrier MD Unavailable [phone] Herrera Jorge MD Unavailable [phone] Walter Qiu MD Primary Care Provider [phone] Winston Sotelo MD Unavailable Trudy Camp MA Unavailable Unavailable Grady Grant MD Primary Care Provider [phone] Zoe Villalpando MD Unavailable [phone] Encounter Details Date Type Department Care Team (Latest Contact Info) Description 06/03/2015 Orders Only [facility] CLINCONV ProviderTatyana MD [address] [place] [address] Social History Tobacco Use Types Packs/Day Years Used Date Smoking Tobacco: Never Assessed Comments Unknown Sex and Gender Information Value Date Recorded Sex Assigned at Not on file Legal Sex Female 1:00 AM VAULT WORKER Gender Identity Female 02/12/2021 8:58 AM CDT Sexual Orientation Straight 04/21/2020 5: 12 PM VAULT WORKER documented as of this encounter Plan of Treatment Not on file documented as of this encounter Procedures Procedure Name Priority Date/Time Associated Diagnosis Comments SCAN - LABS 12/10/2015 12:00 AM CDT documented in this encounter Results * SCAN - LABS (12/10/2015 12:00 AM CDT) Narrative 12/10/2015 12:00 AM CDT Ordered by an unspecified provider. us Historical Provider Final Res ult documented in this encounter Visit Diagnoses Not on filedocumented in this encounter Additional Health Concerns Infection Onset Date Last Indicated Resolved Time MRSA Comment:Nares: 07/02/22 07/02/2022 07/02/2022 12/29/2022 3:05 AM CDT COVID: Suspected 05/22/2024 05/22/2024 05/22/2024 2:40 PM VAULT WORKER Influenza, adult 05/22/2024 05/22/2024 05/29/2024 3:05 AM VAULT WORKER documented as of this encounter Care Teams Music Education Adjunct Professor Relationship Specialty Start Date End Date Walter Qiu MD [address] [place] [address] PCP - General Internal Medicine 04/22/20 09/26/23 Grady Grant MD [address] [place] [address] PCP - General Family Medicine 09/27/23 Kelle Kumar, BUDGET EXAMINER Gastroenterology 09/28/18 Sriram Greer MD [address] [facility] [address], [place] [address] Consulting Physician Rheumatology 12/05/18 [place] Guerrier MD [address] [place] [address] Referring Physician Gastroenterology 12/05/18 Herrera Joreg MD [address] [place] [address] Referring Physician Orthopedic Surgery 04/21/20 Winston Sotelo MD [address] [facility] [address] [place] [address] Consulting Physician Pain Management 07/10/22 10/31/23 Trudy Camp MA [address] [facility] 300 [place] [address] ACO Care Sweet Dough Mixer 09/17/23 09/20/23 Zoe Villalpando MD [address] [facility] 3 [place] [address] Referring Physician Dermatology 09/27/23 documented as of this encounter
--- OUTSIDE RECORDS SUMMARY | 2024-09-08 15:54 | XMS_ITS | Encounter Summary ---
Author Organization [facility] Care Team Providers Care Sample Cutter Name Role Phone Kelle Kumar NP Unavailable [phone] Sriram Greer MD Unavailable [phone] [place] Guerrier MD Unavailable [phone] Herrera Jorge MD Unavailable [phone] Walter Qiu MD Primary Care Provider [phone] Winston Sotelo MD Unavailable Trudy Camp MA Unavailable Unavailable Grady Grant MD Primary Care Provider [phone] Zoe Villalpando MD Unavailable [phone] Encounter Details Date Type Department Care Team (Latest Contact Info) Description 04/07/2016 Orders Only [facility] CLINCONV ProviderTatyana MD [address] [place] [address] Social History Tobacco Use Types Packs/Day Years Used Date Smoking Tobacco: Never Assessed Comments Unknown Sex and Gender Information Value Date Recorded Sex Assigned at Not on file Legal Sex Female 1:00 AM SEAM STAYER Gender Identity Female 02/12/2021 8:58 AM CDT Sexual Orientation Straight 04/21/2020 5: 12 PM SEAM STAYER documented as of this encounter Plan of Treatment Not on file documented as of this encounter Procedures Procedure Name Priority Date/Time Associated Diagnosis Comments PROCEDURE - RESULT 04/10/2016 12 :00 AM SEAM STAYER documented in this encounter Results * PROCEDURE - RESULT (04/10/2016 12:00 AM SEAM STAYER) Narrative 04/10/2016 12:00 AM SEAM STAYER Ordered by an unspecified provider. us Historical Provider MD Final Res ult documented in this encounter Visit Diagnoses Not on filedocumented in this encounter Additional Health Concerns Infection Onset Date Last Indicated Resolved Time MRSA Comment:Nares: 07/02/22 07/02/2022 07/02/2022 12/29/2022 3:05 AM CDT COVID: Suspected 05/22/2024 05/22/2024 05/22/2024 2:40 PM SEAM STAYER Influenza, adult 05/22/2024 05/22/2024 05/29/2024 3:05 AM SEAM STAYER documented as of this encounter Care Teams Sample Cutter Relationship Specialty Start Date End Date Walter Qiu MD [address] [place] [address] PCP - General Internal Medicine 04/22/20 09/26/23 Grady Grant MD [address] [place] [address] PCP - General Family Medicine 09/27/23 Kelle Kumar, SAFETY AIDE Gastroenterology 09/28/18 Sriram Greer MD [address], [place] [address] Consulting Physician Rheumatology 12/05/18 [place] Guerrier MD [address] [place] [address] Referring Physician Gastroenterology 12/05/18 Herrera Jorge MD [address] [place] [address] Referring Physician Orthopedic Surgery 04/21/20 Winston Sotelo MD [address] [facility] [address] [facility] 230 [place] [address] Consulting Physician Pain Management 07/10/22 10/31/23 Trudy Camp MA [address] [facility] [address] [place] [address] ACO Care Typing Bookkeeper 09/17/23 09/20/23 Zoe Villalpando MD [address] [facility] 3 [place] [address] Referring Physician Dermatology 09/27/23 documented as of this encounter
--- OUTSIDE RECORDS SUMMARY | 2024-09-08 15:54 | XMS_ITS | Encounter Summary ---
Author Organization [facility] Facility Care Team Providers Care Workday Manager Name Role Phone Kelle Kumar NP Unavailable [phone] Sriram Greer MD Unavailable [phone] Castro Guerrier MD Unavailable [phone] Herrera Jorge MD Unavailable [phone] Walter Qiu MD Primary Care Provider [phone] Winston Sotelo MD Unavailable Trudy Camp MA Unavailable Unavailable Grady Grant MD Primary Care Provider [phone] Zoe Villalpando MD Unavailable [phone] Encounter Details Date Type Department Care Team (Latest Contact Info) Description 06/30/2016 Orders Only [facility] CLINCONV ProviderTatyana MD [address] [place] [address] Social History Tobacco Use Types Packs/Day Years Used Date Smoking Tobacco: Never Assessed Comments Unknown Sex and Gender Information Value Date Recorded Sex Assigned at Not on file Legal Sex Female 1:00 AM OFFICE SUPPORT Gender Identity Female 02/12/2021 8:58 AM CDT Sexual Orientation Straight 04/21/2020 5: 12 PM OFFICE SUPPORT documented as of this encounter Plan of Treatment Not on file documented as of this encounter Procedures Procedure Name Priority Date/Time Associated Diagnosis Comments COLONOSCOPY - SCAN 06/30/2016 12 :00 AM OFFICE SUPPORT documented in this encounter Results * COLONOSCOPY - SCAN (06/30/2016 12:00 AM OFFICE SUPPORT) Narrative 06/30/2016 12:00 AM OFFICE SUPPORT Ordered by an unspecified provider. us Historical Provider MD Final Res ult documented in this encounter Visit Diagnoses Not on filedocumented in this encounter Additional Health Concerns Infection Onset Date Last Indicated Resolved Time MRSA Comment:Nares: 07/02/22 07/02/2022 07/02/2022 12/29/2022 3:05 AM CDT COVID: Suspected 05/22/2024 05/22/2024 05/22/2024 2:40 PM OFFICE SUPPORT Influenza, adult 05/22/2024 05/22/2024 05/29/2024 3:05 AM OFFICE SUPPORT documented as of this encounter Care Teams Workday Manager Relationship Specialty Start Date End Date Walter Qiu MD [address] [place] [address] PCP - General Internal Medicine 04/22/20 09/26/23 Grady Grant MD [address] [place] [address] PCP - General Family Medicine 09/27/23 Kelle Kumar, MAIL MESSENGER Gastroenterology 09/28/18 Sriram Greer MD [address] [address] Consulting Physician Rheumatology 12/05/18 [place] Guerrier MD [address] [place] [address] Referring Physician Gastroenterology 12/05/18 Herrera Jorge MD [address] [place] [address] Referring Physician Orthopedic Surgery 04/21/20 Winston Sotelo MD [address] [facility] [address] [facility] 230 [place] [address] Consulting Physician Pain Management 07/10/22 10/31/23 Trudy Camp MA [address] [facility] [address] [place] [address] ACO Care Straddle Bug 09/17/23 09/20/23 Zoe Villalpando MD [address] [facility] 3 [place] [address] Referring Physician Dermatology 09/27/23 documented as of this encounter
--- OUTSIDE RECORDS SUMMARY | 2024-09-08 15:54 | XMS_ITS | Encounter Summary ---
Author Organization [facility] Facility Care Team Providers Care Title Lawyer Name Role Phone Kelle Kumar NP Unavailable [phone] Sriram Greer MD Unavailable [phone] Castro Guerrier MD Unavailable [phone] Herrera Jorge MD Unavailable [phone] Walter Qiu MD Primary Care Provider [phone] Winston Sotelo MD Unavailable Trudy Camp MA Unavailable Unavailable Grady Grant MD Primary Care Provider [phone] Zoe Villalpando MD Unavailable [phone] Encounter Details Date Type Department Care Team (Latest Contact Info) Description 01/22/2018 Orders Only [facility] CLINCONV ProviderTatyana MD [address] [place] [address] Social History Tobacco Use Types Packs/Day Years Used Date Smoking Tobacco: Never Assessed Comments Unknown Sex and Gender Information Value Date Recorded Sex Assigned at Not on file Legal Sex Female 1:00 AM 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 07/02/2022 07/02/2022 12/29/2022 3:05 AM CDT COVID: Suspected 05/22/2024 05/22/2024 05/22/2024 2:40 PM BOILERMAKER PIPE FITTER Influenza, adult 05/22/2024 05/22/2024 05/29/2024 3:05 AM BOILERMAKER PIPE FITTER documented as of this encounter Care Teams Title Lawyer Relationship Specialty Start Date End Date Walter Qiu MD [address] [place] [address] PCP - General Internal Medicine 04/22/20 09/26/23 Grady Grant MD [address] [place] [address] PCP - General Family Medicine 09/27/23 Kelle Kumar, HUMAN SERVICE COORDINATOR Gastroenterology 09/28/18 Sriram Greer MD [address] [address] Consulting Physician Rheumatology 12/05/18 Castro Guerrier MD [address] [facility] [address] [address] Referring Physician Gastroenterology 12/05/18 Herrera Jorge MD [address] [place] [address] Referring Physician Orthopedic Surgery 04/21/20 Winston Sotelo MD [address] [facility] 230 [place] [address] Consulting Physician Pain Management 07/10/22 10/31/23 Trudy Camp MA [address] [facility] [address] [place] [address] ACO Care Corporate Receptionist 09/17/23 09/20/23 Zoe Villalpando MD [address] [facility] 3L [place] [address] Referring Physician Dermatology 09/27/23 documented as of this encounter
--- OUTSIDE RECORDS SUMMARY | 2024-09-08 15:54 | XMS_ITS | Encounter Summary ---
Author Organization [facility] Facility Care Team Providers Care Food Expeditor Name Role Phone Kelle Kumar NP Unavailable [phone] Sriram Greer MD Unavailable [phone] [place] Guerrier MD Unavailable [phone] Herrera Jorge MD Unavailable [phone] Walter Qiu MD Primary Care Provider [phone] Winston Sotelo MD Unavailable Trudy Camp MA Unavailable Unavailable Grady Grant MD Primary Care Provider [phone] Zoe Villalpando MD Unavailable [phone] Encounter Details Date Type Department Care Team (Latest Contact Info) Description 04/11/2018 Orders Only [facility] CLINCONV ProviderTatyana MD [address] [place] [address] Social History Tobacco Use Types Packs/Day Years Used Date Smoking Tobacco: Never Assessed Comments Unknown Sex and Gender Information Value Date Recorded Sex Assigned at Not on file Legal Sex Female 1:00 AM FIELD SALES CONSULTANT Gender Identity Female 02/12/2021 8:58 AM CDT Sexual Orientation Straight 04/21/2020 5: 12 PM FIELD SALES CONSULTANT documented as of this encounter Plan of Treatment Not on file documented as of this encounter Procedures Procedure Name Priority Date/Time Associated Diagnosis Comments SCAN - LABS 04/18/2018 12:00 AM FIELD SALES CONSULTANT documented in this encounter Results * SCAN - LABS (04/18/2018 12:00 AM FIELD SALES CONSULTANT) Narrative 04/18/2018 12:00 AM FIELD SALES CONSULTANT Ordered by an unspecified provider. us Historical Provider MD Final Res ult documented in this encounter Visit Diagnoses Not on filedocumented in this encounter Additional Health Concerns Infection Onset Date Last Indicated Resolved Time MRSA Comment:Nares: 07/02/22 07/02/2022 07/02/2022 12/29/2022 3:05 AM CDT COVID: Suspected 05/22/2024 05/22/2024 05/22/2024 2:40 PM FIELD SALES CONSULTANT Influenza, adult 05/22/2024 05/22/2024 05/29/2024 3:05 AM FIELD SALES CONSULTANT documented as of this encounter Care Teams Food Expeditor Relationship Specialty Start Date End Date Walter Qiu MD [address] [place] [address] PCP - General Internal Medicine 04/22/20 09/26/23 Grady Grant MD [address] [place] [address] PCP - General Family Medicine 09/27/23 Kelle Kumar, DAY CARE CENTER DIRECTOR Gastroenterology 09/28/18 Sriram Greer MD [address], [place] [address] Consulting Physician Rheumatology 12/05/18 [place] Guerrier MD [address] [place] [address] Referring Physician Gastroenterology 12/05/18 Herrera Jorge MD [address] [place] [address] Referring Physician Orthopedic Surgery 04/21/20 Winston Sotelo MD [address] [facility] [address] [facility] 230 [place] [address] Consulting Physician Pain Management 07/10/22 10/31/23 Trudy Camp MA [address] [facility] [address] [place] [address] ACO Care Grain Packer 09/17/23 09/20/23 Zoe Villalpando MD [address] [facility] 3 [place] [address] Referring Physician Dermatology 09/27/23 documented as of this encounter
--- OUTSIDE RECORDS SUMMARY | 2024-09-08 15:55 | XMS_ITS | Encounter Summary ---
Author Organization [employer] Address 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 LOAN OFFICER Gender Identity Not on file Sexual Orientation Not on file documented as of this encounter Plan of Treatment Not on file documented as of this encounter Procedures Procedure Name Priority Date/Time Associated Diagnosis Comments POC GLUCOSE Routine 12/07/2006 5:10 AM CDT POC GLUCOSE Routine 12/07/2006 12:07 AM CDT POC GLUCOSE Routine 12/06/2006 5:36 PM CDT POC GLUCOSE Routine 12/06/2006 11:20 AM CDT POC GLUCOSE Routine 12/06/2006 5:05 AM CDT POC GLUCOSE Routine 12/05/2006 11:50 PM CDT POC GLUCOSE Routine 12/05/2006 4:48 PM CDT POC GLUCOSE Routine 12/05/2006 10:15 AM CDT CBC WITH DIFFERENTIAL Routine 12/05/2006 4:55 AM CDT CBC WITH DIFFERENTIAL Routine 12/05/2006 4:55 AM CDT BASIC METABOLIC PANEL Routine 12/05/2006 4:55 AM CDT POC GLUCOSE Routine 12/05/2006 4:49 AM CDT POC GLUCOSE Routine 12/04/2006 11:36 PM CDT POC GLUCOSE Routine 12/04/2006 4:04 PM CDT POC GLUCOSE Routine 12/04/2006 10:54 AM CDT CBC WITH DIFFERENTIAL Routine 12/04/2006 4:30 AM CDT CBC WITH DIFFERENTIAL Routine 12/04/2006 4:30 AM CDT BASIC METABOLIC PANEL Routine 12/04/2006 4:30 AM CDT POC, BLOOD GASES Routine 12/03/2006 2:30 PM CDT CBC WITH DIFFERENTIAL Routine 11/22/2006 11:05 AM CDT CBC WITH DIFFERENTIAL Routine 11/22/2006 11:05 AM CDT C-REACTIVE PROTEIN Routine 11/22/2006 11 :05 AM CDT COMPREHENSIVE METABOLIC PANEL Routine 11/22/2006 11:05 AM CDT documented in this encounter Results * (ABNORMAL) POC GLUCOSE (12/07/2006 5:10 AM CDT) [facility] GLUCOSE POC 121(H) 65 - 99 mg/dL INTERFACE SYSTEM 12/07/2006 5:10 AM CDT Marcus Teresa MD POINT OF CARE TESTING Edite d INTERFACE SYSTEM Refer to clinic/hospital department * (ABNORMAL) POC GLUCOSE (12/07/2006 12:07 AM CDT) GLUCOSE POC 158(H) 65 - 99 mg/dL INTERFACE SYSTEM 12/07/2006 12:0 7 AM CDT Marcus Teresa MD POINT OF CARE TESTING Edite d Performing Organization Address [facility] Phone Number INTERFACE SYSTEM Refer to clinic/hospital department * (ABNORMAL) POC GLUCOSE (12/06/2006 5:36 PM CDT) GLUCOSE POC 131(H) 65 - 99 mg/dL INTERFACE SYSTEM 12/06/2006 5:36 PM CDT Marcus Teresa MD POINT OF CARE TESTING Edite d Performing Organization Address [facility] Phone Number INTERFACE SYSTEM Refer to clinic/hospital department * (ABNORMAL) POC GLUCOSE (12/06/2006 11:20 AM CDT) GLUCOSE POC 110(H) 65 - 99 mg/dL INTERFACE SYSTEM 12/06/2006 11:2 0 AM CDT Marcus Teresa MD POINT OF CARE TESTING Edite d Performing Organization Address [facility] Phone Number INTERFACE SYSTEM Refer to clinic/hospital department * (ABNORMAL) POC GLUCOSE (12/06/2006 5:05 AM CDT) GLUCOSE POC 116(H) 65 - 99 mg/dL INTERFACE SYSTEM 12/06/2006 5:05 AM CDT us Marcus Teresa MD POINT OF CARE TESTING Edite d Performing Organization Address [facility] Phone Number INTERFACE SYSTEM Refer to clinic/hospital department * (ABNORMAL) POC GLUCOSE (12/05/2006 11:50 PM CDT) GLUCOSE POC 106(H) 65 - 99 mg/dL INTERFACE SYSTEM 12/05/2006 11:5 0 PM CDT Marcus Teresa MD POINT OF CARE TESTING Edite d Performing Organization Address [facility] Phone Number INTERFACE SYSTEM Refer to clinic/hospital department * POC GLUCOSE (12/05/2006 4:48 PM CDT) COMMENT, GLU POC Notified RN INTERFACE SYSTEM GLUCOSE POC 99 65 - 99 mg/dL INTERFACE SYSTEM 12/05/2006 4:48 PM CDT Marcus Teresa MD POINT OF CARE TESTING Edite d Performing Organization Address [facility] Phone Number INTERFACE SYSTEM Refer to clinic/hospital department * (ABNORMAL) POC GLUCOSE (12/05/2006 10:15 AM CDT) COMMENT, GLU POC Notified RN INTERFACE SYSTEM GLUCOSE POC 115(H) 65 - 99 mg/dL INTERFACE SYSTEM 12/05/2006 10:1 5 AM CDT Marcus Teresa MD POINT OF CARE TESTING Edite d Performing Organization Address [facility] Phone Number INTERFACE SYSTEM Refer to clinic/hospital department * (ABNORMAL) CBC WITH DIFFERENTIAL (12/05/2006 4:55 AM CDT) NEUTROPHILS 71(H) 45 - 70 % INTERFAC E SYSTEM LYMPHOCYTES 19 16 - 45 % INTERFAC E SYSTEM MONOCYTES 9 3 - 13 % INTERFACE SYSTEM EOSINOPHILS 1 0 - 7 % INTERFAC E SYSTEM BASOPHILS 0 0 - 2 % INTERFACE SYSTEM NEUTROPHIL ABSOLUTE 4.85 1.90 - 7.00 K/uL INTERFACE SYSTEM LYMPHOCYTE ABSOLUTE 1.31 0.70 - 4.50 K/uL INTERFACE SYSTEM MONOCYTE ABSOLUTE 0.61 0.10 - 1.30 K/uL INTERFACE SYSTEM EOSINOPHIL ABSOLUTE 0.04 0.00 - 0.70 K/uL INTERFACE SYSTEM BASOPHILS ABSOLUTE 0.01 0.00 - 0.20 K/uL INTERFACE SYSTEM 12/05/2006 4:5 5 AM CDT Narrative INTERFACE SYSTEM - 12/05/2006 5:11 AM CDT Ordered by an unspecified provider. [facility] Provider HEMATOLOGY ORDERABLES Edited Performing Organization Address [facility] Phone Number INTERFACE SYSTEM Refer to clinic/hospital department * (ABNORMAL) CBC WITH DIFFERENTIAL (12/05/2006 4:55 AM CDT) WBC 6.8 4.0 - 9.8 K/uL INTERFACE SYSTEM RBC 3.14(L) 3.90 - 4.90 M/uL INTERFACE SYSTEM HEMOGLOBIN 8.9(L) 11.8 - 14.8 g/dL INTERFACE SYSTEM HEMATOCRIT 26.8(L) 35.5 - 44.0 % INTERFACE SYSTEM MCV 85.4 82.0 - 99.0 fL INTERFACE SYSTEM MCH 28.3 27.2 - 32.6 pg INTERFACE SYSTEM MCHC 33.2 31.5 - 35.5 % INTERFACE SYSTEM RDW 14.0 11.5 - 14.5 % INTERFACE SYSTEM RDW-STDEV 42.9 37.1 - 48.7 fL INTERFACE SYSTEM PLATELETS 204 140 - 350 K/uL INTERFACE SYSTEM MPV 9.5 9.3 - 12.4 fL INTERFACE SYSTEM 12/05/2006 4:55 AM CDT Narrative INTERFACE SYSTEM - 12/05/2006 5:11 AM CDT Ordered by an unspecified provider. Historical Provider HEMATOLOGY ORDERABLES Edited Performing Organization Address [facility] Phone Number INTERFACE SYSTEM Refer to clinic/hospital department * (ABNORMAL) BASIC METABOLIC PANEL (12/05/2006 4:55 AM CDT) GLUCOSE 90 65 - 99 mg/dL INTERFACE SYSTEM CREATININE 0.65 0.51 - 0.95 mg/dL INTERFACE SYSTEM CALCIUM 8.0(L) 8.4 - 10.2 mg/dL INTERFACE SYSTEM BUN 8 6 - 20 mg/dL INTERFACE SYSTEM SODIUM 137 135 - 145 mmol/L INTERFACE SYSTEM POTASSIUM 3.6 3.5 - 4.9 mmol/L INTERFACE SYSTEM CHLORIDE 104 96 - 108 mmol/L INTERFACE SYSTEM CO2 26 22 - 30 mmol/L INTERFACE SYSTEM GFR, >60 >=60 mL/min/1. 7 sq meter INTERFACE SYSTEM GFR >60 >=60 mL/min/1. 7 sq meter INTERFACE SYSTEM Comment: Estimated GFR rate interpretative information for both Americans and non- Americans is available on the [facility] Intranet at: [email or web address] Select: Lab Policies and Procedures Select: Reference Ranges - GFR 12/05/2006 4:55 AM CDT Narrative INTERFACE SYSTEM - 12/05/2006 5:44 AM CDT Ordered by an unspecified provider. Historical Provider CHEMISTRY ORDERABLES Edited Performing Organization Address [facility] Phone Number INTERFACE SYSTEM Refer to clinic/hospital department * (ABNORMAL) POC GLUCOSE (12/05/2006 4:49 AM CDT) GLUCOSE POC 108(H) 65 - 99 mg/dL INTERFACE SYSTEM 12/05/2006 4:49 AM CDT Marcus Teresa MD POINT OF CARE TESTING Edite d Performing Organization Address [facility] Phone Number INTERFACE SYSTEM Refer to clinic/hospital department * (ABNORMAL) POC GLUCOSE (12/04/2006 11:36 PM CDT) COMMENT, GLU POC Notified RN INTERFACE SYSTEM GLUCOSE POC 102(H) 65 - 99 mg/dL INTERFACE SYSTEM 12/04/2006 11:3 6 PM CDT Marcus Teresa MD POINT OF CARE TESTING Edite d Performing Organization Address [facility] Phone Number INTERFACE SYSTEM Refer to clinic/hospital department * (ABNORMAL) POC GLUCOSE (12/04/2006 4:04 PM CDT) COMMENT, GLU POC Notified RN INTERFACE SYSTEM GLUCOSE POC 120(H) 65 - 99 mg/dL INTERFACE SYSTEM 12/04/2006 4:04 PM CDT Marcus Teresa MD POINT OF CARE TESTING Edite d Performing Organization Address [facility] Phone Number INTERFACE SYSTEM Refer to clinic/hospital department * (ABNORMAL) POC GLUCOSE (12/04/2006 10:54 AM CDT) GLUCOSE POC 120(H) 65 - 99 mg/dL INTERFACE SYSTEM 12/04/2006 10:5 4 AM CDT Marcus Teresa MD POINT OF CARE TESTING Edite d Performing Organization Address [facility] Phone Number INTERFACE SYSTEM Refer to clinic/hospital department * (ABNORMAL) CBC WITH DIFFERENTIAL (12/04/2006 4:30 AM CDT) NEUTROPHILS 86(H) 45 - 70 % INTERFAC E SYSTEM LYMPHOCYTES 6(L) 16 - 45 % INTERFAC E SYSTEM MONOCYTES 8 3 - 13 % INTERFACE SYSTEM EOSINOPHILS 0 0 - 7 % INTERFAC E SYSTEM BASOPHILS 0 0 - 2 % INTERFACE SYSTEM NEUTROPHIL ABSOLUTE 8.31(H) 1.90 - 7.00 K/uL INTERFACE SYSTEM LYMPHOCYTE ABSOLUTE 0.59(L) 0.70 - 4.50 K/uL INTERFACE SYSTEM MONOCYTE ABSOLUTE 0.74 0.10 - 1.30 K/uL INTERFACE SYSTEM EOSINOPHIL ABSOLUTE 0.01 0.00 - 0.70 K/uL INTERFACE SYSTEM BASOPHILS ABSOLUTE 0.00 0.00 - 0.20 K/uL INTERFACE SYSTEM 12/04/2006 4:30 AM CDT Marcus Teresa MD HEMATOLOGY ORDERABLES Edite d Performing Organization Address [facility] Phone Number INTERFACE SYSTEM Refer to clinic/hospital department * (ABNORMAL) CBC WITH DIFFERENTIAL (12/04/2006 4:30 AM CDT) WBC 9.7 4.0 - 9.8 K/uL INTERFACE SYSTEM RBC 3.14(L) 3.90 - 4.90 M/uL INTERFACE SYSTEM HEMOGLOBIN 8.9(L) 11.8 - 14.8 g/dL INTERFACE SYSTEM HEMATOCRIT 26.5(L) 35.5 - 44.0 % INTERFACE SYSTEM MCV 84.4 82.0 - 99.0 fL INTERFACE SYSTEM MCH 28.3 27.2 - 32.6 pg INTERFACE SYSTEM MCHC 33.6 31.5 - 35.5 % INTERFACE SYSTEM RDW 13.9 11.5 - 14.5 % INTERFACE SYSTEM RDW-STDEV 42.4 37.1 - 48.7 fL INTERFACE SYSTEM PLATELETS 227 140 - 350 K/uL INTERFACE SYSTEM MPV 9.6 9.3 - 12.4 fL INTERFACE SYSTEM 12/04/2006 4:30 AM CDT Marcus Teresa MD HEMATOLOGY ORDERABLES Edite d Performing Organization Address City/State/[facility] Co de Phone Number INTERFACE SYSTEM Refer to clinic/hospital department * (ABNORMAL) BASIC METABOLIC PANEL (12/04/2006 4:30 AM CDT) GLUCOSE 160(H) 65 - 99 mg/dL INTERFACE SYSTEM CREATININE 0.56 0.51 - 0.95 mg/dL INTERFACE SYSTEM CALCIUM 7.8(L) 8.4 - 10.2 mg/dL INTERFACE SYSTEM BUN 8 6 - 20 mg/dL INTERFACE SYSTEM SODIUM 129(L) 135 - 145 mmol/L INTERFACE SYSTEM POTASSIUM 4.8 3.5 - 4.9 mmol/L INTERFACE SYSTEM Comment:Slight hemolysis pre sent. Result may be falsely elevated. CHLORIDE 102 96 - 108 mmol/L INTERFACE SYSTEM CO2 19(L) 22 - 30 mmol/L INTERFACE SYSTEM GFR, >60 >=60 mL/min/1. 7 sq meter INTERFACE SYSTEM GFR >60 >=60 mL/min/1. 7 sq meter INTERFACE SYSTEM Comment: Estimated GFR rate interpretative information for both Americans and non- Americans is available on the [facility] Intranet at: [email or web address] Select: Lab Policies and Procedures Select: Reference Ranges - GFR 12/04/2006 4:30 AM CDT Marcus Teresa MD CHEMISTRY ORDERABLES Edited Performing Organization Address City/State/[facility] de Phone Number INTERFACE SYSTEM Refer to clinic/hospital department * (ABNORMAL) POC RT, BLOOD GASES (12/03/2006 2:30 PM CDT) PH MVBG 7.26(L) 7.32 - 7.43 INTERFACE SYSTEM PCO2 VENOUS 58(H) 38 - 50 mm Hg INTERFACE SYSTEM PO2 MVBG 39 25 - 40 mm Hg INTERFACE SYSTEM O2 SAT EST MVBG POC 64 40 - 70 % INTERFACE SYSTEM PATIENT'S TEMPERATURE 37.0 Degree C INTERFACE SYSTEM BASE EXCESS VENOUS -1.7 -2.0 - 3.0 mmol/L INTERFACE SYSTEM HCO3 MIXED VENOUS 26 22 - 29 mmol/L INTERFACE SYSTEM SODIUM POC 138 135 - 145 mmol/L INTERFACE SYSTEM POTASSIUM POC 3.8 3.5 - 4.9 mmol/L INTERFACE SYSTEM CALICUM IONIZED, WHOLE BLOOD 4.97 4.76 - 5.16 mg/dL INTERFACE SYSTEM HEMATOCRIT POC 33.0(L) 35.5 - 44.0 % INTERFACE SYSTEM COMMENT, GASES POC GEOPHYSICIST/MD NOTIFIED INTERFACE SYSTEM LACTIC ACID 0.9 0.5 - 2.2 mmol/L INTERFACE SYSTEM GLUCOSE POC 108(H) 65 - 99 mg/dL INTERFACE SYSTEM 12/03/2006 2:30 PM CDT us Marcus Teresa MD CHEMISTRY ORDERABLES Edited Performing Organization Address [facility] de Phone Number INTERFACE SYSTEM Refer to clinic/hospital department * (ABNORMAL) CBC WITH DIFFERENTIAL (11/22/2006 11:05 AM CDT) NEUTROPHILS 76(H) 45 - 70 % INTERFAC E SYSTEM LYMPHOCYTES 17 16 - 45 % INTERFAC E SYSTEM MONOCYTES 6 3 - 13 % INTERFACE SYSTEM EOSINOPHILS 1 0 - 7 % INTERFAC E SYSTEM BASOPHILS 0 0 - 2 % INTERFACE SYSTEM NEUTROPHIL ABSOLUTE 6.12 1.90 - 7.00 K/uL INTERFACE SYSTEM LYMPHOCYTE ABSOLUTE 1.39 0.70 - 4.50 K/uL INTERFACE SYSTEM MONOCYTE ABSOLUTE 0.50 0.10 - 1.30 K/uL INTERFACE SYSTEM EOSINOPHIL ABSOLUTE 0.07 0.00 - 0.70 K/uL INTERFACE SYSTEM BASOPHILS ABSOLUTE 0.02 0.00 - 0.20 K/uL INTERFACE SYSTEM 11/22/2006 11:0 5 AM CDT Marcus Teresa MD HEMATOLOGY ORDERABLES Edite d Performing Organization Address [facility] Phone Number INTERFACE SYSTEM Refer to clinic/hospital department * CBC WITH DIFFERENTIAL (11/22/2006 11:05 AM CDT) WBC 8.1 4.0 - 9.8 K/uL INTERFACE SYSTEM RBC 4.62 3.90 - 4.90 M/uL INTERFACE SYSTEM HEMOGLOBIN 13.4 11.8 - 14.8 g/dL INTERFACE SYSTEM HEMATOCRIT 39.5 35.5 - 44.0 % INTERFACE SYSTEM MCV 85.5 82.0 - 99.0 fL INTERFACE SYSTEM MCH 29.0 27.2 - 32.6 pg INTERFACE SYSTEM MCHC 33.9 31.5 - 35.5 % INTERFACE SYSTEM RDW 14.2 11.5 - 14.5 % INTERFACE SYSTEM RDW-STDEV 44.2 37.1 - 48.7 fL INTERFACE SYSTEM PLATELETS 294 140 - 350 K/uL INTERFACE SYSTEM MPV 9.5 9.3 - 12.4 fL INTERFACE SYSTEM 11/22/2006 11:0 5 AM CDT Marcus Teresa MD HEMATOLOGY ORDERABLES Edite d Performing Organization Address [facility] Phone Number INTERFACE SYSTEM Refer to clinic/hospital department * (ABNORMAL) C-REACTIVE PROTEIN (11/22/2006 11:05 AM CDT) CRP 1.2(H) 0.0 - 0.8 mg/dL INTERFACE SYSTEM 11/22/2006 11:0 5 AM CDT Marcus Teresa MD CHEMISTRY ORDERABLES Edited Performing Organization Address [facility] Phone Number INTERFACE SYSTEM Refer to clinic/hospital department * (ABNORMAL) COMPREHENSIVE METABOLIC PANEL (11/22/2006 11:05 AM CDT) GLUCOSE 95 65 - 99 mg/dL INTERFACE SYSTEM CREATININE 0.59 0.51 - 0.95 mg/dL INTERFACE SYSTEM CALCIUM 9.4 8.4 - 10.2 mg/dL INTERFACE SYSTEM ALKALINE PHOSPHATASE 108(H) 35 - 104 U/L INTERFACE SYSTEM AST 15 12 - 32 U/L INTERFACE SYSTEM ALT 26 0 - 31 U/L INTERFACE SYSTEM TOTAL PROTEIN 7.4 6.3 - 8.6 g/dL INTERFACE SYSTEM ALBUMIN 4.3 3.4 - 4.8 g/dL INTERFACE SYSTEM BILIRUBIN TOTAL 0.4 0.2 - 1.0 mg/dL INTERFACE SYSTEM BUN 8 6 - 20 mg/dL INTERFACE SYSTEM SODIUM 137 135 - 145 mmol/L INTERFACE SYSTEM POTASSIUM 4.0 3.5 - 4.9 mmol/L INTERFACE SYSTEM CHLORIDE 103 96 - 108 mmol/L INTERFACE SYSTEM CO2 25 22 - 30 mmol/L INTERFACE SYSTEM GFR, >60 >=60 mL/min/1. 7 sq meter INTERFACE SYSTEM GFR >60 >=60 mL/min/1. 7 sq meter INTERFACE SYSTEM Comment: Estimated GFR rate interpretative information for both Americans and non- Americans is available on the [facility] Intranet at: [email or web address] Select: Lab Policies and Procedures Select: Reference Ranges - GFR 11/22/2006 11:0 5 AM CDT Marcus Teresa MD CHEMISTRY ORDERABLES Edited INTERFACE SYSTEM Refer to clinic/hospital department documented in this encounter Visit Diagnoses Diagnosis Diverticulitis of colon (without mention of hemorrhage)(562.11)- Primary Diverticulitis of colon (without mention of hemorrhage) documented in this encounter
--- OUTSIDE RECORDS SUMMARY | 2024-09-08 15:55 | XMS_ITS ---
Author Organization [facility] Address [address] [place], [place] [id number] Care Team Providers Care Television Operator Name Role Phone JONH ESQUIVEL Unavailable [phone] Grady Grant Unavailable Unavailable Allergies Allergen (clinical drug ingredient) Drug/Non Drug Allergy documented on EMR Reaction Allergy Type Onset Date Status ampicillin Ampicillin Unknown Drug Allergy 09/13/2012 acti ve REASON FOR VISIT Patient presents for at-risk foot care . The patient has painful toenails that cause difficulty with ambulation and shoegear. The onset is gradual Vital Signs Height 62.00 in 03/27/2024 Weight 231 lbs 03/27/2024 BMI 42.25 kg/m2 03/27/2024 Height-cm 157.48 cm 03/27/2024 Weight-kg 104.78 kg 03/27/2024 Encounters Encounter Location Date Provider Diagnosis [facility] [address] [place], [place] [id number] 03/27/2024 JONH ESQUIVEL Tinea unguium B35.1 ; Pain in right toe(s) M79.674 ; Pain in left toe(s) M79.675 and Atherosclerosis of [place] arteries of extremities with intermittent claudication, bilateral legs I70.213 Assessments Encounter Date Diagnosis (ICD Code) Assessment Notes Treatment Notes Treatment Clinical Notes Section Notes 03/27/2024 Tinea unguium (ICD-10 - B35.1) FUNGAL TOENAILS: Discussed various treatment options for fungal toenails including debridement, topical antifungals, oral antifungals, toenail avulsion, or toenail matrixectomy. NAIL DEBRIDEMENT: Nails 1-5 Bilateral were debrided extensively with nail nippers and emery board, reducing length and girth to pink healthy tissue with any subungual debris and necrotic tissue removed 03/27/2024 Pain in right toe(s) (ICD-10 - M79.674) 03/27/2024 Pain in left toe(s) (ICD-10 - M79.675) 03/27/2024 Atherosclerosis of [place] arteries of extremities with intermittent claudication, bilateral legs (ICD-10 - I70.213) Plan Of Treatment Treatment Notes Assessment Notes Tinea unguium FUNGAL TOENAILS: Discussed various treatment options for fungal toenails including debridement, topical antifungals, oral antifungals, toenail avulsion, or toenail matrixectomy. NAIL DEBRIDEMENT: Nails 1-5 Bilateral were debrided extensively with nail nippers and emery board, reducing length and girth to pink healthy tissue with any subungual debris and necrotic tissue removed Next Appt Details Follow Up: 10-12 Weeks, Reas on: At Risk Foot care, sooner if problems arise Provider Name:JONH ESQUIVEL, 01:20:00 PM, [address], [address], [id number], Progress Notes * LOUANN GUTIERREZ DDOB:[birth year] (84 yo F)Acc No.[id number]:03/27/2024 Patient: LOUANN ROB Princess Provider: Max Esquivel DPM :1940 A ge:84 Y S ex:Female Date:03/27/2024 Address:[address] [place] [address] Subjective: * Chief Complaints: * 1 . Patient presents for at-risk foot care . The patient has painful toenails that cause difficulty with ambulation and shoegear. The onset is gradual. * HPI: H PI: General care P atient presents to the office for at risk foot care. Patient states that their nails are thickened, elongated and painful. Patient states that it is aggravated by shoe gear. Onset is gradual. Patient denies being diabetic. , Patient is taking prescription blood thinners., Date last seen by was October 2023. , Initials RR. sample. * Medical History: * Family History: F ather: PRN - [...] , Smoking Status : Former smoker. * Allergies: A mpicillin: Allergy - Onset Date 09/13/2012. Objective: * Vitals: W t: 231 lbs, Wt-k.78 kg, Ht: 62.00 in, Ht-cm: 157.48 cm, BMI: 42.25 Index, Body Surface Area: 2.14. * Examination: C onstitutional: Constitutional T he patient is awake, alert, well developed, well groomed and well nourished. D ermatologic: Skin findings: S kin is thin, atrophic and lacking pedal hair. Nail pathology: N ails 1, 2, 3, 4, and 5 bilateral are elongated, thick, discolored, and dystrophic with subungual debris. They are painful to palpation. ? V ascular: Dorsalis pedis pulse: 1 /4 b ilateral. Posterior tibial pulse: 0 /4 b ilateral. Capillary refill: g reater than 3 seconds. Edema: N o edema, bilateral. N eurologic: Gross sensation G ross sensation is intact to light touch.? M usculoskeletal: Muscle Strength M uscle strength is 5/5 in regards to dorsiflexion, plantarflexion, inversion, and eversion in bilateral lower extremities. ? Assessment: * Assessment: 1. T inea unguium - B35.1 (Primary) 2 . P ain in right toe(s) - M79.674? 3. P ain in left toe(s) - M79.675 4 . A therosclerosis of [place] arteries of extremities with intermittent claudication, bilateral legs - I70.213 Plan: * Treatment: * Procedure Codes: 1 1721 DEBRIDE NAIL, 6 OR MORE, Modifiers: Q8 * Follow Up: 1 0-12 Weeks (Reason: At Risk Foot care, sooner if problems arise) * Billing Information: * Visit Code: * Procedure Codes: 18744 DEBRIDE NAIL, 6 OR MORE. Modifiers: Q8 * ATRIC NURSING ASSISTANT Sign off status: Completed true * Provider: Max Esquivel DPM Date: Generated for Azra guzman/Alden/Danuta on: 0 09/08/2024 03:55 PM CDT History and Physical Notes * HPI (History of Present Illness) Category Sub-Category Detail Notes Category Not es HPI General care Patient presents to the office for at risk foot care. Patient states that their nails are thickened, elongated and painful. Patient states that it is aggravated by shoe gear. Onset is gradual. Patient denies being diabetic. , Patient is taking prescription blood thinners., Date last seen by was October 2023. , Initials RR sample Examination Category Sub-Category Detail Notes Category Not es Dermatologic Skin findings: Skin is thin, at rophic and lacking pedal hair Nail pathology: Nails 1, 2, 3, 4, an d 5 bilateral are elongated, thick, discolored, and dystrophic with subungual debris. They are painful to palpation Neurologic Gross sensation Gross sensation is intact to light touch Vascular Dorsalis pedis pulse: 1/4 bilateral Edema: No edema, bilateral Capillary refill: greater than 3 secon ds Posterior tibial pulse: 0/4 bilateral Musculoskeletal Muscle Strength Muscle strength is 5/5 in regards to dorsiflexion, plantarflexion, inversion, and eversion in bilateral lower extremities Constitutional Constitutional The patient is a wake, alert, well developed, well groomed and well nourished
--- OUTSIDE RECORDS SUMMARY | 2024-09-08 15:55 | XMS_ITS | Patient Health Record ---
Author Organization [facility] delvis Address [address] [facility] [facility] [address] [place] [address] Care Team Providers Care Valve And Regulator Repairer Name Role Phone Uyen SIEGEL, Walter Primary Care Provider Sriram Panda Unavailable [phone] Allergies Allergen (clinical drug ingredient) Drug/Non Drug Allergy documented on EMR Reaction Allergy Type Onset Date Status ampicillin Ampicillin Unknown Drug Allergy 08/04/2017 Acti ve tramadol Tramadol Reaction: nausea Drug Allergy 12/15/2017 Active Results Component Value Reference Range Notes Pain Man Profile 6 w/Conf Ur Reviewed date:04/07/2024 05:40:46 AM Interpretation: Performing Lab:[facility] , [address] [facility]. [facility] [address] Notes/Report: U Creatinine 26.5 > or = 20.0 mg/dL PH Ur 8.3 4.5-9.0 Oxidants NEGATIVE <200 mcg/mL Test Performed at: [facility] [address] [address] CHTE SIGALA Amphetamines NEGATIVE <500 ng/mL Barbiturates. NEGATIVE <300 ng/mL Benzodiazepines NEGATIVE <100 ng/mL Tetrahydrocannabinol NEGATIVE <20 ng/mL Benzoylecgonine NEGATIVE <150 ng/mL Methadone NEGATIVE <100 ng/mL Opiates POSITIVE <100 ng/mL Codeine NEGATIVE <50 ng/mL Hydrocodone 527 <50 ng/mL Hydromorphone 158 <50 ng/mL Morphine NEGATIVE <50 ng/mL Norhydrocodone 375 <50 ng/mL Oxycodone NEGATIVE <100 ng/mL Phencyclidine NEGATIVE <25 ng/mL Ur Ethanol NEGATIVE <500 ng/mL 6-Acetylmorphine NEGATIVE <10 ng/mL Drug Monitoring Template Reviewed date:04/07/2024 05:40:46 AM Interpretation: Performing Lab:[facility] , [address] [facility]. [place] [address] Notes/Report: Service Comment3 SEE NOTE This drug testing is for medical treatment only. Analysis was performed as non-forensic testing and these results should be used only by healthcare providers to render diagnosis or treatment, or to monitor progress of medical conditions. Opiates Notes: Hydrocodone, Norhydrocodone, Hydromorphone detected is consistent with the use of the drug Hydrocodone. Hydromorphone detected is consistent with the use of the drug Hydromorphone. Hydromorphone can be a prescribed drug and is also a metabolite of Hydrocodone. LDT Notes: Confirmation tests were developed and their analytical performance characteristics have been determined by [facility]. It has not been cleared or approved by the FDA. This assay has been validated pursuant to the CLIA regulations and is used for clinical purposes. Healthcare Providers needing Interpretation assistance, please contact us at [phone] ( ) M-F, 8am to 10pm EST Test Performed at: [facility] [address] [place] [address] MAXWELL GILLSEPIE MD Reason For Referral No Information Medications Medication SIG (Take, Route, Frequency, Duration) Notes Start Date End Date Status HYDROcodone-Acetamino phen 5-325 MG 1 tablet Orally every 8 hrs As needed. Dx=low back pain M54.9, joint pain M25.50. Dx=low back pain 09/10/2024 Active Albuterol Active Vitamin D3 1000 UNIT Oral Active Isosorbide Mononitrate ER 60 MG take 1 tablet (60 mg) by oral route once daily in the morning Oral 1 Active Denosumab 60 MG/ML as directed Subcutaneous Active Furosemide 20 MG take 1 tablet (20 mg ) by oral route once daily Oral 1 Active Gabapentin 100 MG 1 tid Oral 03/20/2021 Active Clindamycin Phos & Cleanser Active Metoprolol Tartrate 50 MG 1 tablet with food Orally Twice a day for 30 day(s) Active Furosemide 20 MG 1 tablet Orally Once a day for 30 day(s) Active Finasteride 5 MG 1 tablet Orally Once a day for 30 day(s) Active Clobeta Ointment Act cristel Isosorbide Mononitrate ER 60 MG 1 tablet in the morning Orally Once a day for 30 day(s) Active Tylenol 8 Hour Arthritis Pain 650 MG take 2 tablets (1,300 mg) by oral route every 8 hours swallowing whole with water. Do not break, crush, dissolve and/or chew. Oral 3 Active Prasugrel HCl 10 MG as directed Orally Active Losartan Potassium 100 MG 1 tablet Orally Once a day for 30 day(s) Active Isosorbide Mononitrate Active Problems Problem Type SNOMED Code ICD Code Onset Dates Problem Status W/U Status Risk Notes Problem Joint pain (81184773) Pain in unspecified joint (M25.50) Active confirmed Problem Backache (555757636) Dorsalgia, unspecified (M54.9) 06/25/2022 Active confirmed Vital Signs Heart Rate 101 /min 07/07/2024 Temperature 98.0 degrees Fahrenheit 07/07/2024 Height-cm 157.48 cm 07/07/2024 Blood pressure diastolic 78 mm Hg 07/07/2024 Oximetry 94 % 07/07/2024 Weight-kg 95.24 kg 07/07/2024 Height 62 in 07/07/2024 Blood pressure systolic 132 mm Hg 07/07/2024 Weight 210 lbs 07/07/2024 BMI 38.41 kg/m2 07/07/2024 Encounters Encounter Location Date Provider Diagnosis [facility] [address] [place] [address] 09/29/2023 Sriram DiValerio Pain in unspecified joint M25.50 and Dorsalgia, unspecified M54.9 [facility] [address] [facility] [address] [place] [address] 12/30/2023 Sriram DiValerio Pain in unspecified joint M25.50 and Dorsalgia, unspecified M54.9 [facility] [address] [facility] [address] [place] [address] 04/03/2024 Sriram DiValerio Pain in unspecified joint M25.50 and Dorsalgia, unspecified M54.9 [facility] [address] [facility] [address] [place] [address] 07/07/2024 Sriram DiValerio Pain in unspecified joint M25.50 and Dorsalgia, unspecified M54.9 [facility] [address] [place] [address] 09/29/2023 Sriram DiValerio Dorsalgia, unspecified M54.9 [facility] [address] [place] [address] 09/29/2023 Sriram DiValerio Dorsalgia, unspecified M54.9 [facility] [address] [place] [address] 12/30/2023 Sriram DiValerio Dorsalgia, unspecified M54.9 [facility] [address] [place] [address] 12/30/2023 Sriram DiValerio Dorsalgia, unspecified M54.9 [facility] [address] [place] [address] 04/03/2024 Sriram DiValerio Dorsalgia, unspecified M54.9 [facility] [address] [place] [address] 04/03/2024 Sriram DiValerio Dorsalgia, unspecified M54.9 [facility] [address] [place] [address] 07/07/2024 Sriram DiValerio Dorsalgia, unspecified M54.9 [facility] [address] [place] [address] 07/07/2024 Sriram DiValerio Dorsalgia, unspecified M54.9 Assessments Encounter Date Diagnosis (ICD Code) Assessment Notes Treatment Notes Treatment Clinical Notes Section Notes 09/29/2023 Pain in unspecified joint (ICD-10 - M25.50) 09/29/2023 Dorsalgia, unspecified (ICD-10 - M54.9) 09/29/2023 Dorsalgia, unspecified (ICD-10 - M54.9) 09/29/2023 Dorsalgia, unspecified (ICD-10 - M54.9) 12/30/2023 Pain in unspecified joint (ICD-10 - M25.50) 12/30/2023 Dorsalgia, unspecified (ICD-10 - M54.9) 12/30/2023 Dorsalgia, unspecified (ICD-10 - M54.9) 12/30/2023 Dorsalgia, unspecified (ICD-10 - M54.9) 04/03/2024 Pain in unspecified joint (ICD-10 - M25.50) 04/03/2024 Dorsalgia, unspecified (ICD-10 - M54.9) 04/03/2024 Dorsalgia, unspecified (ICD-10 - M54.9) 04/03/2024 Dorsalgia, unspecified (ICD-10 - M54.9) 07/07/2024 Pain in unspecified joint (ICD-10 - M25.50) 07/07/2024 Dorsalgia, unspecified (ICD-10 - M54.9) 07/07/2024 Dorsalgia, unspecified (ICD-10 - M54.9) 07/07/2024 Dorsalgia, unspecified (ICD-10 - M54.9) 12/30/2023 Other UDS reviewed. Plan Of Treatment Pending Test Test Name Order Date Creatinine, Serum 07/02/2023 Creatine Kinase (CK), MB/Total CBC With Differential/Platelet 4 Rheumatoid Arthritis Factor 07/02/2023 CCP IgG Antibodies 07/02/2023 HONEY Comprehensive Panel 07/02/2023 Hepatic Function Panel (7) 07/02/2023 Drug Profile, Ur, 9 Drugs 07/02/2023 Drug Profile, Ur, 9 Drugs 07/30/2023 ESR 07/02/2023 Next Appt Details Provider Name:Sriram gilbert, 10/04/2024 10:30:00 AM, [address] [facility] [address], [place], [address], Insurance Providers Payer Name Payer Address Payer Phone Subscriber Number Group Number Insured Name Patient Relationship to Insured Coverage Start Date Coverage End Date Medicare [address] [address] [place] [address] [id number] Olive Abbott Self - patient is the insured [facility] [address] [place] [address] [id number] Olive Abbott Self - patient is the insured Medical (General) History Medical History History ICD Code Back Pain, Date of Onset: 06/25/2022; Hand pain; Hypertension; Joint pain; Surgical History Surgery Date(Month/Year) Fusion; 2017-08-04 laminectomy/otomy; 2017-08-04 Hysterectomy; 2017-08-04 colon surgery; 2017-08-04 Knee surgery; 2017-08-04
--- OUTSIDE RECORDS SUMMARY | 2024-09-08 15:55 | XMS_ITS | Clinical Summary ---
Author Organization [facility] Address [address] [facility] Attn: Epic Prelude ADT COLTEN CULLEN [address] Care Team Providers Care Flap Maker Name Role Phone Unavailable Primary Care Provider Unavailabl e Social History Tobacco Use Types Packs/Day Years Used Date Smoking Tobacco: Never Assessed Comments Unknown Sex and Gender Information Value Date Recorded Sex Assigned at Not on file Legal Sex Female 4:11 AM REFLESHER Gender Identity Not on file Sexual Orientation Not on file Plan of Treatment Health Maintenance Due Date Last Done Comments DTAP/TDAP/TD VACCINES (1 - Tdap) 1961 PNEUMOCOCCAL VACCINE 50+ YEARS (1 of 1 - PCV) 03/11/19 92 ZOSTER VACCINE (1 of 2) 1992 OSTEOPOROSIS SCREENING 2007 RSV VACCINE (60+ or ) (1 - 1-dose 75+ series) 2017 INFLUENZA VACCINE (#1) 2023
--- OUTSIDE RECORDS SUMMARY | 2024-09-08 15:55 | XMS_ITS ---
Author Organization [facility] Address [address] [place], [place] [address] Care Team Providers Care Director Of Compensation Name Role Phone JONH ESQUIVEL Unavailable [phone] Grady Grant Unavailable Unavailable Allergies Allergen (clinical [...] Location Date Provider Diagnosis [facility] [address] [place], [place] [id number] 01/17/2024 JONH ESQUIVEL Tinea unguium B35.1 ; Pain in right toe(s) M79.674 ; Pain in left toe(s) M79.675 and Atherosclerosis of orutsararmiut arteries of extremities with intermittent claudication, bilateral legs I70.213 Assessments Encounter Date Diagnosis (ICD Code) Assessment Notes Treatment Notes Treatment Clinical Notes Section Notes 01/17/2024 Tinea unguium (ICD-10 - B35.1) FUNGAL TOENAILS: Discussed various treatment options for fungal toenails including debridement, topical antifungals, oral antifungals, toenail avulsion, or toenail matrixectomy. NAIL DEBRIDEMENT: Nails 1-5 Bilateral were debrided extensively with nail nippers and emery board, reducing length and girth to pink healthy tissue with any subungual debris and necrotic tissue removed 01/17/2024 Pain in right toe(s) (ICD-10 - M79.674) 01/17/2024 Pain in left toe(s) (ICD-10 - M79.675) 01/17/2024 Atherosclerosis of [place]ararmiut arteries of extremities with intermittent claudication, bilateral [...] problems arise Provider Name:JONH ESQUIVEL, 01:20:00 PM, [address], [address], [id number], Progress Notes * LOUANN GUTIERREZ DDOB:[birth year] (83 yo F)Acc No.[id number]:01/17/2024 Patient: LOUANN ROB Provider: Max Esquivel DPM :1940 A ge:83 Y S ex:Female Date:01/17/2024 Address:[address] [place] [address] Subjective: * Chief Complaints: * 1 . [...] Date last seen by Dr. Grant was October 2023., Initials LB. * Medical History: * Family History: F [...] Allergy - Onset Date 09/13/2012. Objective: * Examination: P hysical Examination: General appearance: A lert, pleasant, well-nourished and in no acute distress. D ermatologic: Skin findings: S kin is thin, atrophic and lacking pedal hair.. Hypertrophic / hyperkeratotic lesion: H yperkeratotic skin lesions to the medial aspect of the left foot. Lesions present to tips of the 2, 3, and 4th digits. Nail pathology: N ails 3 bilateral a re elongated, thick, discolored, and dystrophic with subungual debris. They are painful to palpation. ? V ascular: Dorsalis pedis pulse: 0 /4, bilateral. Posterior tibial pulse: 1 /4, bilaterally. Capillary refill: g reater than 3 seconds. [...] . P ain in right toe(s) - M79.674 3 . P ain in left toe(s) - M79.675 4 . A therosclerosis of orutsararmiut arteries of extremities with intermittent claudication, bilateral legs - I70.213 Plan: * Treatment: * Procedure Codes: 1 1720 DEBRIDE NAIL, 1-5, Modifiers: Q8 * Follow Up: 1 0-12 Weeks (Reason: At Risk Foot care, sooner if problems arise) * Billing Information: * Visit Code: * Procedure Codes: 11250 DEBRIDE NAIL, 1-5. Modifiers: Q8 * Sign off status: Completed true * Provider: Max Esquivel DPM Date: 0 01/17/2024 Generated for Azra guzman/Alden/Danuta on: 0 09/08/2024 [...] Date last seen by Dr. Grant was October 2023., Initials LB Examination Category Sub-Category Detail Notes Category Not es Dermatologic Skin findings: Skin is thin, at rophic and lacking pedal hair. Nail pathology: Nails 3 bilateral ar e elongated, thick, discolored, and dystrophic with subungual debris. They are painful to palpation Hypertrophic / hyperkeratotic lesion: Hy perkeratotic skin lesions to the medial aspect of the left foot. Lesions present to tips of the 2, 3, and 4th digits Neurologic Gross sensation Grossly intact t o light touch. There is negative Tinel's sign Vascular Dorsalis pedis pulse: 0/4, bilateral Edema: No edema bilateral Capillary refill: greater than 3 secon ds Posterior tibial pulse: 1/4, bilaterally Physical Examination General appearance: Alert, pleasant, well-nourished and in no acute distress Musculoskeletal Muscle Strength Muscle strength is 5/5 in regards to dorsiflexion, plantarflexion, inversion, and eversion in bilateral lower extremities
--- OUTSIDE RECORDS SUMMARY | 2024-09-08 15:55 | XMS_ITS | Continuity of Care Document ---
Author Organization [facility] Address [address] [facility] [address] [place] [address] Phone Care Team Providers Care Review Engineer Name Role Phone Antonio Lujan Unavailable Unavailable Procedures Procedure Date Eye Exam & Treatment Refraction Eye Exam & Treatment Refraction No Charge Glasses Check Eye Exam & Treatment Visual Functional Status Assessed Refraction Advance Directives Directive Yes / No Effective Date File Name No Information Encounters Encounter Description Practice Location Reason(s) For Visit Diagnoses Date Provider Providers Copied on Encounter [facility], [address] [place] [address] [address], [place], [place], [id number], tel:[phone] [facility] No Information 3-201 0 Krishnasamy Antonio. [address] [address], [place], [place], [facility], . tel:[phone] [facility], [address] [place] [address] [address], [place], [place], [id number], [place] tel:[phone] [facility] No Information 4-200 9 Krishnasamy Antonio. [address] [facility] [address], [place], [facility], . tel:[phone] [facility], [address], [place], [place], [address], tel:[phone] [facility] No Information 0 7-200 8 Berenice Novak. [address], [place], [place], [id number], [place]. tel:[phone] [facility], [address], [place], [place], [address], [place] tel:[phone] [facility] No Information 0 5-200 7 Berenice Novak. [address], [place], [place], [address], [place]. tel:[phone] Family History Family Member Type Diagnosis Age At Onset No Information Payers Payer name Insurance type Covered republican ID Authoriza tion(s) Medicare [facility] [id number] [employer] [facility] [id number] Social History Type Description Quantity Date Captured Comments Sex Female Smoking Status No Information Chief Complaint And Reason For Visit No Information Reason For Referral Reason For Referral No Information History Of Present Illness Encounter Date Complaint History Of Prese nt Illness No Information Functional Status Date Functional Assessmen t No Information Instructions Date Instruction Additional Infor mation No Information Assessments Type Assessment Date No Information Patient Care Teams Name Effective Dates (start - stop) Status Members No Information
--- OUTSIDE RECORDS SUMMARY | 2024-09-08 15:55 | XMS_ITS | Clinical Summary ---
Author Organization [facility] Address [address] [place] [address] Care Team Providers Care Application Dba Name Role Phone Kelle Kumar NP Unavailable [phone] Sriram Greer MD Unavailable Castro Guerrier MD Unavailable [phone] Herrera Jorge MD Unavailable Grady Grant MD Primary Care Provider Zoe Villalpando MD Unavailable [phone] Allergies Active Allergy Reactions Criticality Noted Date Comments Adhesive Tape-Silicones Other (See comments) Reaction: redness, Amiloride-Hydrochlorot hiazide Other (See comments) Medium 07/14/2021 Leg cramping Ampicillin Rash,Other (See comments),Unknown Medium 04/11/2010 Reaction: mottled skin, , RASH Took keflex and did okay 05/2024 Aspirin Other (See comments) Low 02/26/2023 Abdominal discomfort Bisoprolol-Hydrochloro thiazide Diarrhea Low 09/05/2018 diarrhea Lisinopril Cough Low 09/05/2018 COUGH Losartan Potassium Unknown 09/05/2018 back aches. Pt aware this is listed and still taking medication for the past 4 years Oxycodone-Acetaminophe n Nausea only Low 04/22/2020 Clopidogrel Stomach upset Low 06/02/2023 Hrppozi-Ytu-Hlr Reductase Inhibitors Muscle pain Medium 06/02/2023 Sucralfate Unknown 09/05/2018 Sores in mouth Tramadol Hcl Stomach upset Low 09/05/2018 nausea, GI upset. Pt unsure if nausea related to medication * Triamterene Muscle pain Medium 09/05/2018 cramps Medications denosumab (PROLIA) 60 mg/mL syringe Inject under the skin once Every 6 months Active HYDROcodone-acet aminophen (NORCO) 5-325 mg per tablet Take 1 tablet by mouth 2 (two) times a day as needed 09/19/19 23 Active pediatric multivitamin no.76 tablet,chewable Take by mouth Active cholecalciferol (VITAMIN D-3) 2000 unit tablet Take 1 tablet (2,000 Units total) by mouth daily Active pentoxifylline ER (TRENtal) 400 mg CR tablet Take 1 tablet (400 mg total) by mouth 3 (three) times a day 09/24/19 24 Active fluocinonide (LIDEX) 0.05 % external solution Apply to affected scalp twice daily. 30 days supply. 09/24/19 24 Active triamcinolone (KENALOG) 0.1 % cream 09/26/19 24 Active finasteride (PROSCAR) 5 mg tablet Take 1 tablet (5 mg total) by mouth daily 12/01/19 24 Active losartan (COZAAR) 100 mg tablet Take 1 tablet (100 mg total) by mouth daily 90 tablet 3 02/14/20 24 Active metoprolol XL (TOPROL-XL) 50 mg extended release tablet Take 1 tablet (50 mg total) by mouth daily 90 tablet 3 04/13/20 24 025 Active clobetasoL (TEMOVATE) 0.05 % ointment APPLY TOPICALLY TO THE AFFECTED AREA TWICE DAILY 04/29/20 24 Active furosemide (LASIX) 20 mg tablet TAKE 1 TABLET(20 MG) BY MOUTH DAILY 30 tablet 11 06/12/19 25 Active rutin 500 mg tablet Take 50 mg by mouth 2 (two) times a day Active isosorbide mononitrate ER (IMDUR) 60 mg 24 hr tablet Take 1 tablet (60 mg total) by mouth daily 90 tablet 3 07/28/19 25 Active prasugreL HCl (EFFIENT) tablet Take 1 tablet (10 mg total) by mouth daily 90 tablet 3 07/28/19 25 Active semaglutide (OZEMPIC) 1 mg/dose (4 mg/3 mL) pen injector injectionIndicat ions:Weight Loss Management for Obese Patient (BMI >= 30) Inject 1 mg under the skin once a week 3 mL 1 09/05/19 25 Active levoFLOXacin (LEVAQUIN) 500 mg tablet Take 1 tablet (500 mg total) by mouth daily for 7 days 7 tablet 09/05/19 25 025 Active semaglutide (WEGOVY) 0.25 mg/0.5 mL auto-injector Inject 0.25 mg under the skin every 7 days 025 Discontinued Active Problems Problem Noted Date Diagnosed Date Class 2 severe obesity due t o excess calories with serious comorbidity and body mass index (BMI) of 39.0 to 39.9 in adult 08/07/2024 Assessment & Plan (08/07/2024 12:34 PM CDT): BMI Follow-up includes: education provided. Nonischemic cardiomyopathy 07/28/2024 Acute cystitis with hematuria 06/06/2024 Assessment & Plan (06/06/2024 1:36 PM MANAGER UTILIZATION MANAGEMENT): Patient is stable today. I think we can continue to treat as outpatient. I do not have her previous urine culture to compare. We will send today's urine off to reculture. I talked to her that this might be a small kidney stone trying to pass. Patient is on chronic opioid therapy that may be masking some of the pain of a kidney stone. I am going to start her on Cipro 500 mg b.i.d.. There was a drug drug interaction with pentoxifylline and Cipro. I talked to her about this and we agreed that she is going to temporarily stop the pentoxifylline while she is on Cipro. I also cautioned her that if she develops symptoms such as being not able to urinate, developing fever, nausea vomiting, or increased blood in urine then she should either go to the ER or report those symptoms to us and we would consider a stat CT of abdomen and pelvis renal stone protocol. Patient voiced understanding of plan of care and follow-up Lymphedema 05/08/2024 Multinodular goiter 02/14/2024 Assessment & Plan (02/14/2024 8:46 AM CDT): Chronic, overall stable Reviewed patient's previous in current thyroid ultrasound report and images Dominant left complex thyroid nodule that was 1.6 cm in 2019 he is now on 1.8 cm in size not a significant increase in 4 years. No need for FNA biopsy Continue to radiologically and clinically monitor for now Recheck TSH No compressive symptoms Follow-up in 1 year Solar purpura 09/27/2023 Statin myopathy 06/02/2023 Coronary artery disease invo lving [place] coronary artery of [place] heart without angina pectoris 02/26/2023 Mild intermittent asthma without complication Assessment & Plan (05/22/2024 3:00 PM MANAGER UTILIZATION MANAGEMENT): History of asthma. Wheezing today with influenza A. Prednisone taper encouraged to use albuterol inhaler. With multiple comorbidities will start Tamiflu despite being on day 5 Assessment & Plan (10/20/2022 7:33 PM CDT): Controlled/stable. Continue current meds and plan Assessment & Plan (06/18/2022 11:43 AM MANAGER UTILIZATION MANAGEMENT): She continues on Breo 1 puff daily and has albuterol MDI to use on a p.r.n. basis. Assessment & Plan (12/16/2021 10:46 AM CDT): Patient continue with Breo one inhalation once a day. Patient continue with her albuterol inhaler as needed up to 4 times a day for shortness of breath. Assessment & Plan (08/12/2021 9:41 AM CDT): Her breathing has improved with the addition of Breo 100/25 1 puff daily and she continues to use albuterol 2 puffs b.i.d. Assessment & Plan (07/14/2021 10:34 AM MANAGER UTILIZATION MANAGEMENT): The patient has dyspnea on exertion. I will give her a trial of Breo 1 puff daily in addition to her albuterol inhaler that she uses q.i.d. on a p.r.n. basis. She will follow-up here in 1 month. Leg cramps 05/04/2021 Assessment & Plan (07/14/2023 9:03 AM MANAGER UTILIZATION MANAGEMENT): No evidence of PVD or venous insufficiency bilaterally. Unclear etiology to the leg cramping and numbness, could be lumbosacral spine disease as she reports having 2 lower back surgeries. Can follow up as needed. Assessment & Plan (09/07/2021 6:52 PM CDT): Improving.slowly. continue supplementation. Last labs normal Assessment & Plan (05/04/2021 7:25 PM MANAGER UTILIZATION MANAGEMENT): juen -feb 18 sodium barely normal at 135-136. Suspect poss. Hyponatremia? And hypercalcemia. Spironolactone can also raise uric acid? Last one in November normal. Potassium normal. Liver disease? Recheck zinc (low normal at 63 in past) Low normal vit A (need to recheck was 0.33) No DVT in legs. Pseudoclaudication? rediscuss pamela w/ ANCA indeterminate arterial check? Leg cramps... vascular? Pamela w/ spiroolcactone may have been more related to blodd perfusion???. Check bp when cramps? Arterial doppler next step if not better. Prediabetes 04/28/2021 Hyperlipidemia 04/28/2021 Assessment & Plan (07/14/2023 9:03 AM MANAGER UTILIZATION MANAGEMENT): Recommend statin therapy. Age-related osteoporosis wit hout current pathological fracture 10/22/2020 Assessment & Plan (10/20/2022 7:34 PM CDT): Stable-Continue Prolia injection given by specialist PLMD (periodic limb movement disorder) Assessment & Plan (01/10/2024 2:14 PM CDT): Asymptomatic Assessment & Plan (06/29/2023 11:01 AM MANAGER UTILIZATION MANAGEMENT): The patient denies that her limbs are moving at night when she sleeps. Assessment & Plan (03/29/2023 12:44 PM CDT): The patient denies that her limbs are moving at night when she sleeps. Assessment & Plan (02/16/2023 12:26 PM CDT): The patient denies that her limbs are moving at night when she sleeps. Assessment & Plan (12/22/2022 11:19 AM CDT): The patient denies that her limbs are moving at night when she sleeps. Assessment & Plan (06/18/2022 11:44 AM MANAGER UTILIZATION MANAGEMENT): She is no longer aware that her legs are moving and she has stopped using Requip. She did have injections in her back with Dr. Sotelo. Assessment & Plan (12/16/2021 10:46 AM CDT): Patient continue Requip 0.5 mg p.o. Q bedtime. Assessment & Plan (09/07/2021 6:51 PM CDT): Seeing sleep. On ropinerol Assessment & Plan (08/12/2021 9:42 AM CDT): The nocturnal leg cramps have improved with Requip 0.5 mg at bedtime. Assessment & Plan (07/14/2021 10:34 AM MANAGER UTILIZATION MANAGEMENT): Patient is having nocturnal leg cramps. I will give her a trial of Requip 0.5 mg at bedtime to see if this will improve the leg movements and cramps. Assessment & Plan (04/17/2021 11:11 AM MANAGER UTILIZATION MANAGEMENT): The patient denies that her limbs are moving at night when she sleeps. Assessment & Plan (02/17/2021 11:18 AM CDT): The patient denies that her limbs are moving at night when she sleeps. Assessment & Plan (10/14/2020 10:56 AM CDT): The patient denies that her limbs are moving at night when she sleeps. Assessment & Plan (09/02/2020 3:10 PM CDT): The patient is using an [id number]-[id number] electrolyte solution. The patient states that she is no longer having leg cramps. Assessment & Plan (07/30/2020 10:33 AM MANAGER UTILIZATION MANAGEMENT): The patient states that the leg cramps are under control now with her using an ewhy-zej-ztmzxut electrolytes solution. She is not aware that her limbs are moving at night. Raynaud's phenomenon on hist ory 2 yrs (2018 white toes,cold temp) 04/22/2020 Renal artery atherosclerosis per chart notation [id number] 04/22/2020 Assessment & Plan (10/20/2022 7:30 PM CDT): Stable. Continue current management AMA+ (tiffani) 04/21/2020 Assessment & Plan (04/21/2020 10:25 AM MANAGER UTILIZATION MANAGEMENT): Seeing Dr. Guerrier. Hepatomegaly. AMA+,HONEY+. Suspected PBC. Declined biopsy. Vit D def. Fatty liver. H/O partial resection of col on 2006 for diverticulosis (per note Dr. Guerrier) 04/21/2020 Medicare annual wellness visit, subsequent 04/18 Assessment & Plan (09/27/2023 2:11 PM CDT): A(n) initial visit to establish care has been performed today. Olive Abbott is up to date on screening tests. She is in need of None- no screening indicated at this time. She is up to date on needed preventative vaccinations. We discussed healthy lifestyle habits, educational material has been given. Medications reviewed, changes documented as per the medical record and discussed with patient along with risks vs benefits. Return in 1 month Assessment & Plan (04/18/2019 10:18 AM MANAGER UTILIZATION MANAGEMENT): Wear sunscreen while outdoors. Wear seatbelts while in a vehicle. Do not text and drive. Follow a heart healthy diet and lifestyle. Consume 5-7 servings of fruits and vegetables a day. Maintain/attain normal body weight. Maintain good sleep schedule and sleep habits. I recommend that all patients follow a diet that is high in fruits and vegetables and low in processed foods such as sugar and foods that are made with white flour. I recommend using beneficial fats such as olive oil, nuts, seeds and berries and avoiding saturated animal fats. Please stay physically active to the extent that you are able. Test results: if you have not received communication about test results within 7 days of the test being performed, please contact the office. Consider getting Shingrix (shingles vaccine). This is a 2-shot series with each injection given 2-6 months apart. You can obtain the vaccine at most major pharmacies without a prescription Pt believes she has had both pneumonia shots. 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 [employer] Sucrose Digestion test = 2.07, normal is > 5.10% in females. She was started on Sucraid rx by them Spinal stenosis of lumbar re gion with neurogenic claudication 01/24/2019 Assessment & Plan (04/18/2019 9:03 AM MANAGER UTILIZATION MANAGEMENT): Is being seen at [facility] by her prior surgeon. They are recommending weight loss and she can undergo injections if she chooses to Assessment & Plan (03/23/2019 11:41 AM CDT): Lumbar spinal stenosis L3-4 Pseudoarthrosis L5-S1 Healed fusion L4-5 Recommended treatment is continued observation. If the patient has increase in symptoms she is to give the office a call and we can repeat the central L3-4 interlaminar epidural steroid injection. I also had a long talk with her about weight loss she understands that if we would have to move forward with an elective spine surgery that she would need to lose weight so that she would have a BMI of under 35 currently she is at a 39. Assessment & Plan (02/22/2019 10:50 AM CDT): Assessment Spinal stenosis L3-4 and pseudoarthrosis L5-S1 with solid L4-5 fusion Plan Central L4-5 interlaminar epidural steroid injection and return visit Assessment & Plan (02/01/2019 11:57 AM CDT): Assessment Severe foraminal stenosis bilaterally at L3-4 and pseudoarthrosis L5-S1 with solid fusion L4-5 Plan Right L3-4 transforaminal epidural steroid injection and she is to return to assess her progress. If it helps that level could be contributing to her problems if no effect at all than likely the pseudoarthrosis is her main problem. She has been counseled about weight loss Assessment & Plan (01/24/2019 11:41 AM CDT): Assessment Probable pseudoarthrosis at L5-S1 status post L3-5 fusion with increased symptoms over the last several months consistent with a diagnosis of pseudoarthrosis. Plan CT lumbar spine to formulate a treatment plan whether it is for adjacent level spinal stenosis above the fusion or pseudoarthrosis or combination of both will determine next steps Hepatomegaly 04/08/2018 Rotator cuff syndrome of left shoulder 8 Generalized osteoarthritis of multiple sites Overview (09/05/2018): feet, hands, spine,knees on [place] 2-3 a day, on prednisone 7.5mg daily Assessment & Plan (09/03/2020 10:49 AM CDT): Feet hurting, knees down. Spine ok. Assessment & Plan (04/22/2020 6:39 PM MANAGER UTILIZATION MANAGEMENT): feet, hands, spine,knees on [place] 2-3 a day, used to be on prednisone 7.5mg daily. Get rheumatologic workup. Reassess LBP (kidney?). Has raynauds on exam. Check uric acid. Check TSh Assessment & Plan (12/05/2018 10:32 AM CDT): Sees Occupational Rehabilitation Aide for her OA pain. Given [place] from them NICOLLE (obstructive sleep apnea) 2016 Overview (09/05/2018): on CPAP Assessment & Plan (01/10/2024 2:14 PM CDT): Due to continued symptoms, the patient will continue CPAP at 14 cm water pressure. Denied need for supplies. DME [employer] Assessment & Plan (06/29/2023 12:33 PM MANAGER UTILIZATION MANAGEMENT): Patient continue to wear her CPAP 14 cm water pressure while sleeping. Her DME use [employer] Assessment & Plan (03/29/2023 12:44 PM CDT): The patient will continue to wear CPAP at 14 cm water pressure while sleeping. Her DME is [employer]. Assessment & Plan (02/16/2023 12:26 PM CDT): The patient will continue to wear CPAP at 14 cm water pressure while sleeping. Her DME is [employer]. Assessment & Plan (02/01/2023 4:00 PM CDT): Controlled on CPAP continue Assessment & Plan (12/22/2022 11:19 AM CDT): Patient continue to wear her CPAP at 14 cm water pressure while sleeping. Her DME is [employer]. Assessment & Plan (10/20/2022 7:32 PM CDT): Continue CPAP. Controlled. Continue follow up with sleep Medicine Assessment & Plan (06/18/2022 11:43 AM MANAGER UTILIZATION MANAGEMENT): She continues to benefit from CPAP at 14 cm water pressure. Her DME supplier is [employer]. She will follow-up here in 6 months. Assessment & Plan (12/16/2021 10:46 AM CDT): Patient continue to wear CPAP at 14 cm water pressure while sleeping. Her DME is [employer]. Assessment & Plan (08/12/2021 9:42 AM CDT): The patient continues to benefit from CPAP at 14 cm water pressure. Her DME supplier is [employer]. She will follow-up with me in 4 months. Assessment & Plan (07/14/2021 10:34 AM MANAGER UTILIZATION MANAGEMENT): The patient continues to benefit from CPAP at 14 cm water pressure. Her DME supplier is [employer]. Assessment & Plan (05/04/2021 7:07 PM MANAGER UTILIZATION MANAGEMENT): Improved overall symptoms since began. Continue follow up with specialist Assessment & Plan (04/17/2021 11:10 AM MANAGER UTILIZATION MANAGEMENT): Patient continue to wear her CPAP at 14 cm water pressure while sleeping. Her DME is [employer]. I did send an order over to show the patient a variety of mask. The patient is interested in the [employer] fullface mask or the [employer] med mask. Assessment & Plan (02/17/2021 11:17 AM CDT): Patient continue to wear CPAP at 14 cm water pressure while sleeping. Her DME is [employer]. Assessment & Plan (10/14/2020 10:56 AM CDT): Due to the r attle in her ears I will decrease the patient's CPAP to 12 cm water pressure while sleeping. The patient states that she would like to try a nasal mask again. I have sent an order over to [facility]. Assessment & Plan (09/02/2020 3:07 PM CDT): Patient will continue to wear her CPAP at 9 cm of water pressure while sleeping. Her DME is [employer]. The patient is scheduled for a CPAP titration study tonight to evaluate the patient's need for more pressure oxygen with her CPAP. Assessment & Plan (07/30/2020 10:33 AM MANAGER UTILIZATION MANAGEMENT): The patient continues to benefit from CPAP at 9 cm water pressure. Her DME is [employer]. I will order an overnight pulse oximetry recording on CPAP through [facility]. Assessment & Plan (04/21/2020 10:00 AM MANAGER UTILIZATION MANAGEMENT): On cpap. Sees Dr. Dwyer yearly Assessment & Plan (04/18/2019 9:02 AM MANAGER UTILIZATION MANAGEMENT): On CPAP nightly and benefits from it Essential hypertension 12/10/2015 Assessment & Plan (07/14/2023 9:03 AM MANAGER UTILIZATION MANAGEMENT): Stable continue losartan 100 mg. Assessment & Plan (05/07/2023 7:34 PM MANAGER UTILIZATION MANAGEMENT): Controlled/stable. Continue current meds and plan Assessment & Plan (02/01/2023 4:00 PM CDT): Controlled on medication continue Assessment & Plan (12/01/2022 5:49 PM CDT): Controlled/stable. Continue current meds and plan Assessment & Plan (10/20/2022 7:30 PM CDT): Controlled/stable. Continue current meds and plan Assessment & Plan (08/29/2022 3:42 PM CDT): Seeing cardiology home readings relatively controlled Assessment & Plan (09/07/2021 6:48 PM CDT): bp fairly well on amiloride,losartan. Continue to monitor Assessment & Plan (05/04/2021 7:08 PM MANAGER UTILIZATION MANAGEMENT): Doing wel. Last visit was down to 136/84. rediscuss at next visit. (since been on cpap longer) Assessment & Plan (09/03/2020 10:43 AM CDT): Home readings down to 136/84 (nromally running 140-150/80-90). On losartan 100. When went up to losartan in past Thinks it may have caused lower back pain and leg pain. (ziac) Assessment & Plan (06/17/2020 7:49 AM MANAGER UTILIZATION MANAGEMENT): BP eleavted today - at first 180/84 then came down to 146/86. Has been well controlled on that dose in past she says. She has many intolerances to BP meds. I advised her to check home BP readings x 1 wk and RTC when pain has improved to recheck BP and manage meds if needed. Assessment & Plan (04/22/2020 6:35 PM MANAGER UTILIZATION MANAGEMENT): On losartan 100mg (lasix?). cmp ok 3mo ago. Check for microalbuminuria (pamela w/ elevated FBS's). Check home blood pressure readings. Assessment & Plan (04/18/2019 11:42 AM MANAGER UTILIZATION MANAGEMENT): Improved Continue losartan 100 mg daily Low salt diet Continue to work on weight loss Assessment & Plan (01/09/2019 12:54 PM CDT): Follow low sodium DASH Diet. Exercise regularly for CV health and weight loss. Achieve or Maintain normal BMI/Weight. Take medications as prescribed. Report if having porblems with the medication or if develops Chest pains. Monitor BP occly and record. Report if BP consistently over 160/90 or under 90/60 and dizzy and LH. BP is sub-optimally controlled on metoprolol 50 mg. Patient intolerant to most blood pressure medications, see allergy list for details. Assessment & Plan (12/05/2018 10:33 AM CDT): Follow low sodium DASH Diet. Exercise regularly for CV health and weight loss. Achieve or Maintain normal BMI/Weight. Take medications as prescribed. Report if having porblems with the medication or if develops Chest pains. Monitor BP occly and record. Report if BP consistently over 160/90 or under 90/60 and dizzy and LH. BP is not as well controlled in the past. Is not taking at home but states she is going to start Vitamin D deficiency (14) 10/22/2015 Assessment & Plan (09/07/2021 6:49 PM CDT): Normal. Still taking. No side effects Assessment & Plan (05/04/2021 7:07 PM MANAGER UTILIZATION MANAGEMENT): Normalized in july to . Cont 5000/day Assessment & Plan (09/03/2020 10:47 AM CDT): Taking 5000 daily. No major difference. Recheck in 3mo since started oxygen Assessment & Plan (07/21/2020 5:59 PM MANAGER UTILIZATION MANAGEMENT): Improved to 20. Check pancreatic enzymes Assessment & Plan (04/21/2020 10:05 AM MANAGER UTILIZATION MANAGEMENT): Last checked 11/19/18. (low at 27). Gets occasional diarrhea. working dx of PBC? Sees GI. Recheck. Vit D and TSH Assessment & Plan (12/05/2018 10:41 AM CDT): Level still low. Continue supplementation. Try to get some natural sources of vitamin D and calcium Vitamin B12 deficiency 10/22/2015 Assessment & Plan (09/07/2021 6:51 PM CDT): Last checked at 601 on 02/18. Continue MVI Assessment & Plan (05/04/2021 7:09 PM MANAGER UTILIZATION MANAGEMENT): Finally down to normal in January.(off b12). Will recheck in future Assessment & Plan (09/03/2020 10:47 AM CDT): Too high even on 500/day. Suspect from liver disease. Stop b12 completely. Will recheck. Assessment & Plan (04/21/2020 10:22 AM MANAGER UTILIZATION MANAGEMENT): Initial level unclear. Last levels were high at [id number] in 2017. recheck Osteoporosis 10/22/2015 Assessment & Plan (10/14/2021 11:57 AM CDT): Monica. On prolia Assessment & Plan (05/04/2021 7:04 PM MANAGER UTILIZATION MANAGEMENT): Saw Dr Anderson. To get prolia shots. 2nd injection in 2 weeks Assessment & Plan (04/21/2020 11:00 AM MANAGER UTILIZATION MANAGEMENT): Last vit D low. (see vit D def in a/p). Last dexa 2016. Need to get resutls. H/o bowel (colon) resection and possible kidney stones. Need to check PTH levels as well. Ionized calcium. Taking supplements. H/o bilateral sacral fractures on prior CT. Recheck DEXA Assessment & Plan (04/18/2019 9:02 AM MANAGER UTILIZATION MANAGEMENT): Bone Healthy Diet and lifestyle Ca and vit D rich foods Ca and vit D supplementation daily Fall precautions Weight bearing Exercises IBS (irritable bowel syndrome) 10/22/2015 Osteoarthritis of knee 01/02/2009 Assessment & Plan (05/04/2021 7:03 PM MANAGER UTILIZATION MANAGEMENT): Follow up with ortho for injections. Rheum workup to monitor. Cont to see Dr. Campbell. Awaiting feedback on further labs Resolved Problems Problem Noted Date Diagnosed Date Resolved Date Influenza A 05/22/2024 06/06/2024 Assessment & Plan (05/22/2024 3:01 PM MANAGER UTILIZATION MANAGEMENT): History of asthma. Wheezing today with influenza A. Prednisone taper encouraged to use albuterol inhaler. With multiple comorbidities will start Tamiflu despite being on day 5 Encounter for Medicare annual wellness exam 11/01/2023 06/06/2024 Assessment & Plan (11/01/2023 2:52 PM CDT): A(n) yearly Medicare Annual Wellness Visit has been performed today. Olive Abbott is not up to date on screening tests. She is in need of DEXA and hep B screening . She is up to date on needed preventative vaccinations. We discussed healthy lifestyle habits, educational material has been given. Medications reviewed, changes documented as per the medical record and discussed with patient along with risks vs benefits. Return in 6 months Establishing care with jose finley, encounter for 09/27/2023 05/22/2024 Assessment & Plan (10/01/2023 12:52 PM CDT): A(n) initial visit to establish care has been performed today. Olive Abbott is up to date on screening tests. She is in need of None- no screening indicated at this time. She is up to date on needed preventative vaccinations. We discussed healthy lifestyle habits, educational material has been given. Medications reviewed, changes documented as per the medical record and discussed with patient along with risks vs benefits. Continue current regimen Will review derm records further I may want to continue lymphedema therapy, perhaps OT in [place] Continue as per their recommendations Return in 1 month Chronic bronchitis, unspecif ied chronic bronchitis type 09/27/2023 05/22/2024 Medication side effects 08/05/202305/01 Dizziness 08/05/2023 05/22/2024 Skin rash-annular w/ raised borders 08/04/2023 05/22/2024 Bilateral lower extremity pain 06/10/2023 06/06/2024 Assessment & Plan (06/10/2023 1:20 PM MANAGER UTILIZATION MANAGEMENT): Chronic lower extremity burning stabbing pain to the calves which is worse at rest. Denies any ischemic claudication symptoms or rest pain. States over the past year her symptoms have been worsening. Leg started hurting after her 1st back surgery 10 years ago. Bilateral lower extremities are warm well perfused with palpable distal pulses. Patient is wondering if she is having any underlying venous disease or symptoms of venous hypertension could be making her symptoms worse. And would like to be evaluated. Plan: Can follow-up with an updated venous reflux study. Symptoms are more consistent with her neurogenic claudication history rather than any arterial or venous disease. Abnormal PFTs 03/29/2023 06/06/2024 Assessment & Plan (03/29/2023 12:45 PM CDT): Patient continue to use Breo one inhalation once a day. Patient continue to use her albuterol inhaler as needed up to 4 times a day for shortness of breath. I did send a prescription to the pharmacy for her albuterol. Nonsustained ventricular tachycardia 03/29/2023 06/06/2024 Assessment & Plan (04/27/2023 4:44 PM MANAGER UTILIZATION MANAGEMENT): Asymptomatic, short episodes of NSVT. Overall very low PVC/VT burden. Occurring in context of NICM with moderate LV dysfunction, significant obesity and chronic lung disease. No significant epicardial CAD. In absence of syncope or any symptoms or significant arrhythmia burden, suppressive medical therapy is appropriate. I counseled pt that she should call or go to ER with syncope. --Continue metoprolol 50 mg BID --Call with worsening symptoms or syncope --Encouraged efforts at weight loss and NICOLLE management Localized edema 02/26/2023 05/22/2024 Tachycardia 02/26/2023 05/22/2024 Hyponatremia 07/24/2022 05/22/2024 Partial thickness rotator cuff tear 04/28/2021 05/22/2024 Ganglion cyst of finger of right hand 04/28/2021 05/22/2024 Abnormal stress test 10/31/2020 024 Sinus pressure 10/07/2020 12/11/2020 Assessment & Plan (10/07/2020 3:13 PM CDT): We will try antibiotic for 5 days If not resolved will switch to her nasal mask again before she see pulm and can adjust accordingly Restrictive airway disease 09/02/2020 1 07/23/2023 Assessment & Plan (01/10/2024 2:14 PM CDT): Due to continued symptoms, the patient will continue albuterol on a p.r.n. basis and up to 4 times a day as needed for symptom control Assessment & Plan (06/29/2023 12:33 PM MANAGER UTILIZATION MANAGEMENT): Patient continue with albuterol as needed up to 4 times a day for shortness of breath. The patient denies the want for maintenance inhaler at this time. Assessment & Plan (02/16/2023 12:26 PM CDT): I have ordered a pulmonary function tests, 6 minute walk test and a chest x-ray. I have given the patient a sample of Trelegy to use until she gets her Breo from [facility]. I have also advised the patient to try Flonase before going to bed to see if that will help with the tickling in her throat and lungs. Assessment & Plan (12/22/2022 11:20 AM CDT): The patient states that she is going to try not using the Breo to see how it affects her breathing. The patient does have an albuterol inhaler to use as needed up to 4 times a day for shortness of breath. The patient would like a generic for move Breo call did due to cost. Assessment & Plan (06/18/2022 11:43 AM MANAGER UTILIZATION MANAGEMENT): She is going to start a diet soon and try to lose weight. Assessment & Plan (12/16/2021 10:46 AM CDT): The patient continues to diet and lose weight. Assessment & Plan (08/12/2021 9:41 AM CDT): The patient has been able lose about 5 lb. Assessment & Plan (07/14/2021 10:33 AM MANAGER UTILIZATION MANAGEMENT): The patient is going to try to lose weight. Assessment & Plan (04/17/2021 11:11 AM MANAGER UTILIZATION MANAGEMENT): Patient states she does want to start walking. The patient will continue to use her albuterol inhaler as needed up to 4 times a day for shortness of breath. Assessment & Plan (02/17/2021 11:20 AM CDT): Patient is going to try walking short distances. Patient does have difficulty walking due to leg and back pain. Assessment & Plan (10/14/2020 10:56 AM CDT): The patient continues to use albuterol as needed up to 4 times a day for shortness of breath. Assessment & Plan (09/02/2020 3:08 PM CDT): I did give the patient a trial of an albuterol inhaler to use up to 4 times a day as needed for shortness of breath. The patient is going to trying continue to lose weight. Exercise hypoxemia 09/02/2020 Assessment & Plan (01/10/2024 2:14 PM CDT): Due to continued symptoms, the patient will continue with 2 L of oxygen with exercise/activity and p.r.n. Assessment & Plan (06/29/2023 12:33 PM MANAGER UTILIZATION MANAGEMENT): The patient continues to use oxygen at home as a p.r.n. basis. Assessment & Plan (03/29/2023 12:45 PM CDT): The patient is agreeable to have the oxygen sent to her house. The patient did require 2 L with activity. Assessment & Plan (06/18/2022 11:43 AM MANAGER UTILIZATION MANAGEMENT): On her most recent 6 minute walk test she did not require supplemental oxygen. Her O2 has been picked up. She does not want another 6 minute walk test at this time. Assessment & Plan (08/12/2021 9:41 AM CDT): The patient did not qualify for oxygen while walking. I will send an order to [facility] to have the oxygen picked up. Assessment & Plan (07/14/2021 10:33 AM MANAGER UTILIZATION MANAGEMENT): The patient complains of dyspnea on exertion despite using oxygen at 1 liter/minute via nasal cannula. I was informed by [facility] that she needs to requalify for her oxygen and therefore, I will order a 6 minute walk test. Assessment & Plan (04/17/2021 11:15 AM MANAGER UTILIZATION MANAGEMENT): Patient continue to use 1 L of oxygen with activity. I did send an order over to [facility] to picking supervisor the large oxygen concentrator. The patient does have a portable oxygen concentrator that she is using. The patient states that the oxygen is helping her with her breathing. She is benefitting from its use. Assessment & Plan (02/17/2021 11:20 AM CDT): The patient continue to 1 L of oxygen with exertion. Assessment & Plan (10/14/2020 10:56 AM CDT): The patient continue to 1 L of oxygen with exertion. Assessment & Plan (09/02/2020 3:09 PM CDT): Patient will continue to use 1 L of oxygen with activity. The patient is going to have an appointment with the garnett fixer on the 19 of September. Cardiomegaly 08/19/2020 07/28/2024 Fatigue 08/19/2020 05/22/2024 Overview (08/19/2020): check function of b12 pamela wtih coeznzyme in view of abnormal liver. and implicatoins on homocysteine and cardiovascular health Hypercalcemia 08/02/2020 05/22/2024 Elevated lipase 08/02/2020 09/03/2020 SCHNEIDER (dyspnea on exertion) 07/30/2020 Assessment & Plan (02/17/2021 11:19 AM CDT): Due to the patient having shortness of breath and wheezing I have ordered a methacholine challenge. The patient continue to use her albuterol inhaler as needed up to 4 times a day for shortness of breath. The patient is going to talk with her primary care physician about resuming the Lasix. Assessment & Plan (07/30/2020 10:33 AM MANAGER UTILIZATION MANAGEMENT): The patient has gained weight and complains of dyspnea on exertion associated with wheezing. I will check a chest x-ray as well as a 6 minutes walk test and PFTs and she will return to the office after these studies have been completed. Low/borderline low serum vitamin A (o.33) 07/21/2020 05/22/2024 Low zinc level 63 (nl is 60-120) 07/21/2020 05/22/2024 Other seborrheic dermatitis 04/30/2020 05/22/2024 Overview (04/28/2021): Last Assessment & Plan: Continue Ketoconazole shampoo tiw Abnormal CT scan, kidney-pos sible tiny calculus lower pole of left kidney (lumbar CT 01/25/19) 04/21/2020 05/22/2024 Overview (04/21/2020): Taking ca/vitD. Taking lasix. Lower back pain. Diet? Assessment & Plan (05/08/2020 11:37 AM MANAGER UTILIZATION MANAGEMENT): Has hypercalcemia. Workup and treat hypercalcemia (see above). Off calcium. Still on vit D. Off water pills. Suggests hypercalciuria. (check urine) which would indicate more of a PHPT (with high pth levels) Assessment & Plan (04/22/2020 6:35 PM MANAGER UTILIZATION MANAGEMENT): Info on stones diet. Will recheck for flank pain on exam. Repeat CT (LBP). Stop lasix Morbid obesity with BMI of 40.0-44.9, adult 01/10/2020 05/22/2024 Assessment & Plan (03/03/2023 7:00 PM CDT): Not at goal- Increase Mounjaro to 1.7 and recheck in 4-6 weeks. Counseled on lifestyle modification Assessment & Plan (12/01/2022 5:50 PM CDT): Slowly losing weight. Continue wegovy Assessment & Plan (10/20/2022 7:32 PM CDT): Improving. Lost a little bit of weight since last visit on lowest dose of wegovy. Still has 2 months since getting via mail with three-month at a time. Patient is not sure if she wants to double up on her current dose to finish off the 2nd dose. At this point she will finish off what she has mentioned go up to next higher dose of 0.5 continue diet and exercise prescription sent Abnormal glucose 06/03/2018 12/11/2020 Assessment & Plan (04/21/2020 10:23 AM MANAGER UTILIZATION MANAGEMENT): Last checked 04/18. Running over time 117-130. Advise home readings to check. Last hga1c normal at 6.1. Assessment & Plan (04/18/2019 9:01 AM MANAGER UTILIZATION MANAGEMENT): A1c: 6.1% Watch sugars and carbs in diet. Work on exercise and weight loss Assessment & Plan (01/09/2019 12:57 PM CDT): Lab prior to next appt Assessment & Plan (12/05/2018 11:02 AM CDT): 6.2% today - watch sugars and carbs. Pt is going to start diet History of colonic polyps 04/11/2018 Overview (03/30/2024): Last Assessment & Plan: Follows with Dr. Guerrier IMO Replacement Utility 03/01/2024 Assessment & Plan (04/18/2019 9:02 AM MANAGER UTILIZATION MANAGEMENT): Follows with Dr. Guerrier Nausea 04/11/2018 12/11/2020 Restless legs syndrome (RLS) 03/29/2017 12/05/2018 Overview (09/05/2018): on gabapentin at hs Personal history of malignan t neoplasm of cervix uteri 06/28/2016 04/21/2020 Lumbago with sciatica, unspecified side 06/28/2016 12/11/2020 Assessment & Plan (06/17/2020 7:52 AM MANAGER UTILIZATION MANAGEMENT): Unlikely related to green losartan pill. Likely is acute back spasm/DDD with sciatic in pt with chronic recurrent back pain and dysfunction. Given duration, will obtain MRI. Take Tylenol and flexeril for pain. Offered PT but says it made her back pain worse in the past. F/u MRI. RTC if sx worsen. Assessment & Plan (01/09/2019 12:56 PM CDT): Will obtain X-ray, Start robaxin. Follow with Occupational Rehabilitation Aide as well. Consider PT in future - suspect it is the cause of the muscle cramps she is experiencing Encounters Date Type Department Care Team Description 09/06/2024 Results Follow-Up [facility] Primary Care at [address] [phone] Grady Grant MD 09/04/2024 12:34 PM CDT - 09/04/2024 11:59 PM CDT Hospital Encounter [facility] Medical Office Building [address] [place] [address] Hematuria, unspecified type Discharge Disposition: Discharge to home or self care 09/04/2024 11:05 AM CDT - 09/04/2024 11:59 PM CDT Hospital Encounter [address] [address] Hematuria, unspecified type Discharge Disposition: Discharge to home or self care 09/04/2024 10:45 AM CDT Office Visit [facility] Primary Care at [address] [phone] Grady Grant MD Hematuria, unspecified type (Primary Dx) 09/04/2024 Results Follow-Up [facility] Primary Care at [address] [phone] Grady Grant MD Gross hematuria (Primary Dx) 09/04/[address] [facility] Primary Care at [address] [phone] Grady Grant MD 07/28/2024 9:15 AM MANAGER UTILIZATION MANAGEMENT Office Visit [facility] Cardiology [address] [facility] [address] [place] [address] Shanel Antunez MD Coronary artery disease involving [place] coronary artery of [place] heart without angina pectoris (Primary Dx); Essential hypertension; Mixed hyperlipidemia; Statin myopathy; Nonischemic cardiomyopathy (HCC) 06/26/2024 11:00 AM MANAGER UTILIZATION MANAGEMENT Infusion [facility] Injection Therapy [address] [place] [address] Age-related osteoporosis without current pathological fracture (Primary Dx) 06/16/2024 Orders Only [facility] [address] [facility] Medical Office [address] [place] [address] Elvi Pedraza MD 06/15/2024 Orders Only [facility] Primary Care at [address] [phone] Provider, MD Tatyana from Last 3 Months Immunizations Immunization Administration Dates Next Due Influenza, Quad, Adjuvantate d, Intramuscular 02/17/2022,02/09/2020 Influenza, Quadrivalent, Hig h Dose, Preservative Free, Intrr 02/09/2023,02/17/2021 Influenza, Trivalent, Adjuva nted, Intramuscular 03/03/2019 Influenza, Trivalent, High D ose, Split, Preservative Free, Intramuscular 02/17/2024,03/01/2018,03/03/2017,02/23,03/01/2014 Influenza, Trivalent, Preser vative Free, Intramuscular 03/03/2015 Influenza, Unspecified 02/17/2024,2022,02/28/2022,03/03,02/28/2015 Moderna SARS-CoV-2 Monovalen t Vaccination (12+ YRS) 08/09/2020,07/12/2020 Moderna Sars-cov-2 Monovalen t Booster Vaccination .25 Ml dose (12+ YRS) 09/24/2021,03/25/2021 RSV, Bivalent, Protein Subun it Rsvpref, Diluent (Abrysvo) 02/09/2023 TD Preservative Free 06/28/2006 Tdap 04/16/2014 ZOSTER LIVE 05/31/2010 ZOSTER Recombinant 04/09/2020,02/09/2020 Surgical History Surgery Date Site/Laterality Comments LAMINECTOMY 05/31/2007 - 05/30/2008 L4-5 REPLACEMENT TOTAL KNEE Bilateral BACK SURGERY 09/28/2016 - 10/28/2016 fusion JOINT REPLACEMENT November 2010 & Mar 2012 SPINE SURGERY 09/28/2016 - 10/28/2016 CATARACT EXTRACTION 2014 Bilateral HYSTERECTOMY 05/31/2005 - 05/30/2006 ovaries are still intact TUBAL LIGATION 05/31/1981 - 05/30/1982 CARDIAC CATHETERIZATION 05/31/2012 - 05/30/2013 NO INTERVENTION COLON SURGERY 11/28/2006 - 12/28/2006 lap. resection 2 feet r/t diverticulitis Medical History Medical History Date Comments Hypertension 2004 Irritable bowel Diverticulosis led to bowel res ection Sciatica Osteoarthritis Sleep apnea 2002 cpap nightly Awareness under anesthesia 1981 with tubal and colon resection On home oxygen therapy 1-2 L GERD (gastroesophageal reflux disease) 2004 h/o Enlarged liver saw superintendent operations division and cleared Urinary tract infection last 201 7 Thyroid nodule follow up done H/O cone biopsy of cervix Osteoporosis injections every 6 months last was 11/08/20 Dental crown present Eczema Wears glasses SOB (shortness of breath) wearin g Home O2 Chronic back pain Nonsustained ventricular tac hycardia (HCC) 03/29/2023 History of colonic polyps 04/11/2018 Last A ssessment & Plan: Follows with Dr. Guerrier IMO Replacement Utility 03/01/2024 Asthma 2020 Family History Medical History Relation Name Comments Cancer Brother Gonzalez Gutierres Alcohol abuse Father David Gutierres Gout Father David Gutierres Heart disease Father David Gutierres Heart failure Father David Gutierres Hypertension Father David Gutierres COPD Mother Berenice Gutierres Osteoarthritis Mother Berenice Gutierres Osteoporosis Mother Berenice Gutierres Osteoporosis Sister Hip fracture Neg Hx Scoliosis Neg Hx Relation Name Status Comments Brother Gonzalez Gutierres Father David Gutierres Mother Berenice Gutierres Sister Social History Tobacco Use Types Packs/Day Years Used Date Smoking Tobacco: Former Cigarettes 0.3 20 0 05/31/1980 - 05/31/2000 Passive Smoke Exposure: Past Smokeless Tobacco: Never Tobacco Cessation:Counseling Given: Not Answered Alcohol Use Standard Drinks/Week Comments Not Currently [...] on file Legal Sex Female 1:00 AM MANAGER UTILIZATION MANAGEMENT Gender Identity Female 02/12/2021 8:58 AM CDT Sexual Orientation Straight 04/21/2020 5: 12 PM MANAGER UTILIZATION MANAGEMENT Obstetrics History Para Term AB IAB SAB Ectopic Multiple Livin g Live Births 2 2 Date Outcome GA Total Labor Labor/2nd/3rd Weight Sex Type Anes PTL Jannet A1 A5 Name Clin Para Para Last Filed Vital Signs Vital Sign Reading Time Taken Comments Blood Pressure 124/80 09/04/2024 10:37 AM CDT Pulse 75 09/04/2024 10:37 AM CDT Temperature 36.3 C (97.3 F) 09/04/2024 10:37 AM CDT Respiratory Rate 18 09/04/2024 10:37 AM CDT Oxygen Saturation 95% 09/04/2024 10:37 AM CDT Inhaled Oxygen Concentration - - Weight 96.6 kg (213 lb) 09/04/2024 10:37 AM CDT Height 157.5 cm (5' 2 ) 09/04/2024 10:37 AM CDT Body Mass Index 38.96 09/04/2024 10:37 AM CDT Plan of Treatment Health Maintenance Due Date Last Done Comments Hepatitis B Screening 1958 Pneumococcal vaccine 65+ (1 of 2 - PCV) 1959 Covid-19 Vaccine ( season) 2024 02/17/2024, 03/15/2023, 02/17/2022, Additional history exists Well Visit 65+ 10/31/2024 11/01/2023, 09/29, 10/14/2021, Additional history exists Fall Risk Assessment 02/13/2025 02/14/2024, 11/01/2023, 09/27/2023, Additional history exists Colon Cancer Screening-Colonoscopy 04/07/2025 04/07/2022, 11/16/2011 Depression Screening 05/08/2025 05/08/2024, 11/01/2023, 09/27/2023, Additional history exists DTaP/Tdap/Td Vaccine (2 - Td or Tdap) 05/30/2025 04/16/2014, 06/28/2006 Postponed from 04/16/2024 (Insurance / Financial) Osteoporosis Screening-Bone Density Scan 12/23/2025 12/24/2023, 12/08/2022, 11/25/2021, Additional history exists Zoster Vaccine Completed 04/09/2020, 01/29, 05/31/2010 Influenza Vaccine Completed 02/17/2024, , 03/15/2023, Additional history exists Medical Devices Implanted Type Area Straightener Device Identifier Shelf Expiration Date Model / Serial / Lot Spinal Fusion Hardware Back Knee Replacement Bilateral : Knee Procedures Procedure Name Priority Date/Time Associated Diagnosis Comments CT ABDOMEN PELVIS WO CONTRAST Schedule CHIRAG, Read CHIRAG (Appt Today, Awaiting Results) 09/04/2024 12:59 PM CDT Hematuria, unspecified type URINE CULTURE Routine 09/04/2024 11:05 AM CDT Hematuria, unspecified type POCT URINALYSIS DIPSTICK Routine 09/04/2024 10:49 AM CDT Hematuria, unspecified type MAMMOGRAPHY Routine 06/15/2024 7:16 AM MANAGER UTILIZATION MANAGEMENT MAMMOGRAPHY Routine 06/15/2024 7:13 AM MANAGER UTILIZATION MANAGEMENT DEXA TBS AXIAL SKELETON BONE DENSITY 1 OR MORE SITES Schedule Routine, Read Routine (OP Routine) 12/24/2023 1:43 PM CDT Age-related osteoporosis without current pathological fracture COLONOSCOPY Routine 04/07/2022 from Last 3 Months or Most Recently Relevant to Health Maintenance Results * CT abdomen pelvis without contrast (09/04/2024 12:59 PM CDT) Anatomical Region Laterality Modality Body N/A Computed Tomogra phy 09/04/2024 1:21 PM CDT Narrative 09/04/2024 1:28 PM CDT EXAM DESCRIPTION: CT ABDOMEN PELVIS WO CONTRAST REASON FOR STUDY: Abdominal/flank pain, stone suspected, UTI, recurrent/complicated (Female) Left flank pain and hematuria off and on for 3 months. Hx of colon surgery, hysterectomy. TECHNIQUE: CT scan of the abdomen and pelvis performed without intravenous and without oral contrast using helical scanning technique. Reconstructed coronal and sagittal MPR images reviewed. All images stored on PACS. Automated exposure control was used as a dose optimization technique for this examination. COMPARISON: 01/22/2018 FINDINGS: The sensitivity for detection of visceral lesions is diminished without the use of intravenous contrast. LOWER CHEST: No significant pulmonary abnormalities. No effusion. LIVER: Normal size. No identified cystic or solid masses. GALLBLADDER: No stones identified. No wall thickening or inflammatory changes. BILE DUCTS: No intrahepatic or extrahepatic ductal dilatation. SPLEEN: Normal size. No focal lesions. PANCREAS: No identified cystic or solid masses. No significant calcifications. No adjacent inflammation or peripancreatic fluid collections. Pancreatic duct not dilated. ADRENALS: Nodular thickening of the left adrenal gland. Normal right adrenal gland KIDNEYS/URINARY TRACT: Small nonobstructing calculi are seen in both kidneys. No hydronephrosis or mass was seen. The bladder is not well filled and could not be evaluated. GI: No dilated bowel loops. No obvious wall thickening. Normal appendix. Diverticuli are seen in the sigmoid colon. No diverticulitis was seen. There is a fairly large amount of stool throughout the colon. PERITONEUM: No ascites or free air. RETROPERITONEUM: No mass or adenopathy. REPRODUCTIVE: No significant abnormality. VASCULATURE: No abdominal aortic aneurysm. There is extensive mural calcification. There may be hemodynamically significant stenoses in both renal arteries. MUSCULOSKELETAL: No significant abnormality. Rigid fixation is seen from L4 through S1. OTHER: No other abnormality. IMPRESSION: Extensive atherosclerosis. There may be hemodynamically significant stenoses in both renal arteries. Small nonobstructing calculi in both kidneys. No hydronephrosis was seen. Large amount of stool throughout the colon. THIS IS AN ELECTRONICALLY VERIFIED FINAL REPORT 09/04/2024 1:28 PM - Electronically signed by Joel Monteiro M.D. GALDINO: GALDINO Report ID: [id number] Reading Location: [place] [address] Procedure Note Marvin Monteiro MD - 09/04/2024 EXAM DESCRIPTION: CT ABDOMEN PELVIS WO CONTRAST REASON FOR STUDY: Abdominal/flank pain, stone suspected, UTI, recurrent/complicated (Female) Left flank pain and hematuria off and on for 3 months. Hx of colonsurgery, hysterectomy. TECHNIQUE: CT scan of the abdomen and pelvis performed without intravenousand without oral contrast using helical scanning technique. Reconstructed coronal and sagittal MPR images reviewed. All images stored on PACS.Automated exposure control was used as a dose optimization technique for this examination. COMPARISON: 01/22/2018 FINDINGS: The sensitivity for detection of visceral lesions is diminished without the use of intravenous contrast. LOWER CHEST: No significant pulmonary abnormalities. No effusion. LIVER: Normal size. No identified cystic or solid masses. GALLBLADDER: No stones identified. No wall thickening or inflammatory changes. BILE DUCTS: No intrahepatic or extrahepatic ductal dilatation. SPLEEN: Normal size. No focal lesions. PANCREAS: No identified cystic or solid masses. No significant calcifications. No adjacent inflammation or peripancreatic fluidcollections. Pancreatic duct not dilated. ADRENALS: Nodular thickening of the left adrenal gland. Normal rightadrenal gland KIDNEYS/URINARY TRACT: Small nonobstructing calculi are seen in both kidneys. No hydronephrosis or mass was seen. The bladder is not well filled and could not be evaluated. GI: No dilated bowel loops. No obvious wall thickening. Normalappendix. Diverticuli are seen in the sigmoid colon. No diverticulitis was seen.There is a fairly large amount of stool throughout the colon. PERITONEUM: No ascites or free air. RETROPERITONEUM: No mass or adenopathy. REPRODUCTIVE: No significant abnormality. VASCULATURE: No abdominal aortic aneurysm. There is extensive mural calcification. There may be hemodynamically significant stenoses in both renal arteries. MUSCULOSKELETAL: No significant abnormality. Rigid fixation is seenfrom L4 through S1. OTHER: No other abnormality. IMPRESSION: Extensive atherosclerosis. There may be hemodynamically significantstenoses in both renal arteries. Small nonobstructing calculi in both kidneys. No hydronephrosis wasseen. Large amount of stool throughout the colon. THIS IS AN ELECTRONICALLY VERIFIED FINAL REPORT 09/04/2024 1:28 PM - Electronically signed by Joel Monteiro M.D. GALDINO: GALDINO Report ID: [id number] Reading Location: [place] [address] Grady Grant MD IMG CT PROCEDURES Final Res ult * Urine culture Urine, clean voided (09/04/2024 11:05 AM CDT) Report Final Report: Less than 100,000 colonies/mL (clinically insignificant growth based on current clinical standards) Comment:Testing performed by : [facility], [address] [place]., [address] Organism (CLINICALLY INSIGNIFICANT [facility] Urine, clean voided 09/04/2024 11:05 AM CDT 09/05/2024 2:11 AM CDT Narrative JILLIAN - 09/06/2024 7:00 AM CDT Testing performed by [facility] ([phone]) Grady Grant MD LAB MICROBIOLOGY - GENERAL ORDERABLES Final Result [facility] [address] [address] [place] [address] * (ABNORMAL) POCT urinalysis dipstick (09/04/2024 10:49 AM CDT) Glucose, ur, POC Negative Negative MG/DL Bilirubin, ur, POC Negative Negative, Small, Moderate, Large Ketones, ur, POC Negative Negative Specific [place], POC 1.010 1.003 - 1.030 Blood, ur, POC Large(A) Negative pH, ur, POC 6.5 5.0 - 8.0 Protein, ur, POC 30.(A) Negative Urobilinogen, urine, POC 0.2 0.2 - 1.0 mg/dL Nitrite, ur, POC Negative Negative Leukocytes, ur, POC Negative Negative Lot Number [id number] Urine 09/04/2024 10:4 9 AM CDT Grady Grant MD POINT OF CARE TEST ORDERABL ES Final Result * HM MAMMOGRAPHY (06/15/2024 7:16 AM MANAGER UTILIZATION MANAGEMENT) us Historical Provider HEALTH MAINTENANCE Final Result * HM MAMMOGRAPHY (06/15/2024 7:13 AM MANAGER UTILIZATION MANAGEMENT) Mammography Normal Kirit Manriquez MD HEALTH MAINTENANCE Final Re sult * Dexa TBS Axial Skeleton Bone Density 1 or more sites (12/24/2023 1:43 PM CDT) Anatomical Region Laterality Modality Wrist, Body N/A Radiographic Fatoumata ging Narrative 12/24/2023 4:34 PM CDT Patient Name: Olive Abbott Date of : 1940 Date of scan: 12/24/2023 Bone mineral density was performed on a [employer] Discovery Densitometer. Based on machine cross-calibration and precision studies the least significant changes of this densitometer is 0.024 g/cm2 at the spine, 0.020 g/cm2 at the total proximal femur, and 0.014g/cm2 at the forearm. HISTORY: This is a 83 y.o. postmenopausal female with a history of asthma, osteoporosis, and vitamin D deficiency. She reports that she quit smoking about 23 years ago. Her smoking use included cigarettes. She started smoking about 43 years ago. She has a 5 pack-year smoking history. She has been exposed to tobacco smoke. She has never used smokeless tobacco. Currently on treatment with vitamin D, denosumab (Prolia), anticoagulants, and diuretics, previously treated with hormone replacement therapy, and current complaint of back pain. INDICATIONS: Menopause status, treatment monitoring, history of prior wrist and vertebral fracture, vitamin D deficiency, and history of osteoporosis. FINDINGS: BONE MINERAL DENSITY OF THE PROXIMAL FEMUR Bone Mineral Density (BMD) of the left hip total was found to be 0.829 gm/cm2. This corresponds to a T-score standard deviations from the mean of young adults of -0.9. Femoral neck is 0.563 gm/cm2 with a T-score (standard deviations from the mean of young adults) of -2.6. When compared to the previous study of 12/08/2022 there has been no significant changes in bone density. BONE MINERAL DENSITY OF THE FOREARM Bone Mineral density (BMD) of the right proximal 1/3 of the radius measures 0.508 gm/cm2. This corresponds to a T-score (standard deviations from the mean of young adults) of -3.1. When compared to the previous study of 12/08/2022 there has been no significant changes in bone density. A forearm bone density study was performed instead of a spine study because of severe degenerative disease . SUMMARY: Bone mineral density shows evidence of osteoporosis and marked increase risk of fracture. There has been no significant changes in bone density since previous measurement. The lumbar spine Trabecular Bone Score TBS was not obtained due to the bone mineral density of the spine not being acquired. ADDITIONAL COMMENTS: Postmenopausal Women and Men Over 50: Diagnostic criteria: Osteoporosis: BMD at or below -2.5 T-score; Osteopenia (low bone mass): BMD between -1.0 and -2.5 T-score. If the patient has a history of a fragility fracture, a fracture that occurred with trauma equivalent to a fall from a standing position or less, then the diagnosis is osteoporosis regardless of bone density. The history and data sections of the bone mineral density scan were prepared by Brittney Shah (R)(CBDT)who is accredited by the International Society of Clinical Densitometry. The overall patient assessment and scan interpretation were performed by Elvi Pringle M.D.who is certified by the International Society of Clinical Densitometry. [id number] Elvi Pringle MD IM DXA PROCEDURES Final R esult * COLONOSCOPY (04/07/2022) [facility] Signature Scribed Colonoscopy Abnormal Nevaeh Boo MD HEALTH MAINTENANCE Final Result from Last 3 Months or Most Recently Relevant to Health Maintenance Insurance MEDICARE [facility] FEDERAL MEDICARE [facility] Care Teams Application Dba Relationship Specialty Start Date End Date Grady Grant MD [address] [place] [address] PCP - General Family Medicine 09/27/23 Kelle Kumar, PASTRY CHEF Gastroenterology 09/28/18 Sriram Greer MD [address] [facility] [facility] [address] [place] [address] Consulting Physician Rheumatology 12/05/18 Castro Guerrier MD [address] [facility] [address] [place] [address] Referring Physician Gastroenterology 12/05/18 Herrera Jorge MD [address] [place] [address] Referring Physician Orthopedic Surgery 04/21/20 Zoe Villalpando MD [address] [facility] [address] DE[place] [address] Referring Physician Dermatology 09/27/23
--- OUTSIDE RECORDS SUMMARY | 2024-09-08 15:55 | XMS_ITS | Referral Summary ---
Author Organization [facility] Address [address] [place] [address] Care Team Providers Care Tongue And Groove Machine Operator Name Role Phone Kelle Kumar EDITOR FARM JOURNAL Unavailable [phone] Sriram Greer MD Unavailable Castro Guerrier MD Unavailable [phone] Herrera Jorge MD Unavailable Grady Grant MD Primary Care Provider Zoe Villalpando MD Unavailable Encounters Date Type Department Care Team Description 09/06/2024 Results Follow-Up [facility] Primary Care at [address] [address] Grady Grant MD 09/04/2024 11:05 AM CDT - 09/04/2024 11:59 PM CDT Hospital Encounter [address] [id number] Hematuria, unspecified type Discharge Disposition: Discharge to home or self care 09/04/2024 Results Follow-Up [facility] Primary Care at [address] [address] Grady Grant MD Gross hematuria (Primary Dx) 09/04/2024 12:34 PM CDT - 09/04/2024 11:59 PM CDT Hospital Encounter [facility] Office Building [address] [place] [address] Hematuria, unspecified type Discharge Disposition: Discharge to home or self care 09/04/2024 10:45 AM CDT Office Visit [facility] Primary Care at [address] [phone] Grady Grant MD Hematuria, unspecified type (Primary Dx) 09/04/2024 Nurse Triage [facility] Primary Care at [address] [phone] Grady Grant MD 07/28/2024 9:15 AM POPCORN ATTENDANT Office Visit [facility] Cardiology [address] [place] [phone] Shanel Antunez MD Coronary artery disease involving [place] coronary artery of [place] heart without angina pectoris (Primary Dx); Essential hypertension; Mixed hyperlipidemia; Statin myopathy; Nonischemic cardiomyopathy (HCC) 06/26/2024 11:00 AM POPCORN ATTENDANT Infusion [facility] Injection Therapy [address] [place] [address] Age-related osteoporosis without current pathological fracture (Primary Dx) 06/16/2024 Orders Only [facility] Bone Health [address] [facility] Medical Office Building [address] [place] [address] Elvi Pringle MD 06/15/2024 Orders Only [facility] Medical [facility] Primary Care at [address] [phone] ProviderTatyana MD from Last 3 Months Allergies Active Allergy Reactions Criticality Noted Date [...] Low 04/22/2020 Clopidogrel Stomach upset Low 06/02/2023 Ucnggha-Nda-Xso Reductase Inhibitors Muscle pain Medium 06/02/2023 Sucralfate [...] 06/06/2024 Assessment & Plan (06/06/2024 1:36 PM POPCORN ATTENDANT): Patient is stable today. I think we [...] myopathy 06/02/2023 Coronary artery disease invo lving [place] coronary artery of [place] heart without angina pectoris 02/26/2023 Mild intermittent asthma without complication Assessment & Plan (05/22/2024 3:00 PM POPCORN ATTENDANT): History of asthma. Wheezing today with influenza A. Prednisone taper encouraged to use albuterol inhaler. With multiple comorbidities will start Tamiflu despite being on day 5 Assessment & Plan (10/20/2022 7:33 PM CDT): Controlled/stable. Continue current meds and plan Assessment & Plan (06/18/2022 11:43 AM POPCORN ATTENDANT): She continues on Breo 1 puff daily [...] b.i.d. Assessment & Plan (07/14/2021 10:34 AM POPCORN ATTENDANT): The patient has dyspnea on exertion. I will give her a trial of Breo 1 puff daily in addition to her albuterol inhaler that she uses q.i.d. on a p.r.n. basis. She will follow-up here in 1 month. Leg cramps 05/04/2021 Assessment & Plan (07/14/2023 9:03 AM POPCORN ATTENDANT): No evidence of PVD or venous insufficiency bilaterally. Unclear etiology to the leg cramping and numbness, could be lumbosacral spine disease as she reports having 2 lower back surgeries. Can follow up as needed. Assessment & Plan (09/07/2021 6:52 PM CDT): Improving.slowly. continue supplementation. Last labs normal Assessment & Plan (05/04/2021 7:25 PM POPCORN ATTENDANT): juen -feb 18 sodium barely normal at [...] 04/28/2021 Assessment & Plan (07/14/2023 9:03 AM POPCORN ATTENDANT): Recommend statin therapy. Age-related osteoporosis wit hout current pathological fracture 10/22/2020 Assessment & Plan (10/20/2022 7:34 PM CDT): Stable-Continue Prolia injection given by specialist PLMD (periodic limb movement disorder) Assessment & Plan (01/10/2024 2:14 PM CDT): Asymptomatic Assessment & Plan (06/29/2023 11:01 AM POPCORN ATTENDANT): The patient denies that her limbs are [...] sleeps. Assessment & Plan (06/18/2022 11:44 AM POPCORN ATTENDANT): She is no longer aware that her [...] bedtime. Assessment & Plan (07/14/2021 10:34 AM POPCORN ATTENDANT): Patient is having nocturnal leg cramps. I will give her a trial of Requip 0.5 mg at bedtime to see if this will improve the leg movements and cramps. Assessment & Plan (04/17/2021 11:11 AM POPCORN ATTENDANT): The patient denies that her limbs are [...] PM CDT): The patient is using an xhnk-fdy-eyxnuqc electrolyte solution. The patient states that she is no longer having leg cramps. Assessment & Plan (07/30/2020 10:33 AM POPCORN ATTENDANT): The patient states that the leg cramps are under control now with her using an pqnn-ysh-avyowck electrolytes solution. She is not aware that her limbs are moving at night. Raynaud's phenomenon on hist ory 2 yrs (2018 white toes,cold temp) 04/22/2020 Renal artery atherosclerosis per chart notation [id number] 04/22/2020 Assessment & Plan (10/20/2022 7:30 PM CDT): Stable. Continue current management AMA+ (tiffani) 04/21/2020 Assessment & Plan (04/21/2020 10:25 AM POPCORN ATTENDANT): Seeing Dr. Guerrier. Hepatomegaly. AMA+,HONEY+. Suspected PBC. [...] month Assessment & Plan (04/18/2019 10:18 AM POPCORN ATTENDANT): Wear sunscreen while outdoors. Wear seatbelts while [...] 03/08/2019 Overview (03/08/2019): Dr Louis Jack, Ph.D. [employer] Sucrose Digestion test = 2.07, normal is > 5.10% in females. She was started on Sucraid rx by them Spinal stenosis of lumbar re gion with neurogenic claudication 01/24/2019 Assessment & Plan (04/18/2019 9:03 AM POPCORN ATTENDANT): Is being seen at [facility] by her prior surgeon. They are recommending [...] sites Overview (09/05/2018): feet, hands, spine,knees on [place] 2-3 a day, on prednisone 7.5mg daily Assessment & Plan (09/03/2020 10:49 AM CDT): Feet hurting, knees down. Spine ok. Assessment & Plan (04/22/2020 6:39 PM POPCORN ATTENDANT): feet, hands, spine,knees on [place] 2-3 a day, used to be on prednisone 7.5mg daily. Get rheumatologic workup. Reassess LBP (kidney?). Has raynauds on exam. Check uric acid. Check TSh Assessment & Plan (12/05/2018 10:32 AM CDT): Sees [facility] for her OA pain. Given [place] from them NICOLLE (obstructive sleep apnea) 2016 Overview (09/05/2018): on CPAP Assessment & Plan (01/10/2024 2:14 PM CDT): Due to continued symptoms, the patient will continue CPAP at 14 cm water pressure. Denied need for supplies. DME [employer] Assessment & Plan (06/29/2023 12:33 PM POPCORN ATTENDANT): Patient continue to wear her CPAP 14 [...] Medicine Assessment & Plan (06/18/2022 11:43 AM POPCORN ATTENDANT): She continues to benefit from CPAP at [...] months. Assessment & Plan (07/14/2021 10:34 AM POPCORN ATTENDANT): The patient continues to benefit from CPAP at 14 cm water pressure. Her DME supplier is [employer]. Assessment & Plan (05/04/2021 7:07 PM POPCORN ATTENDANT): Improved overall symptoms since began. Continue follow up with specialist Assessment & Plan (04/17/2021 11:10 AM POPCORN ATTENDANT): Patient continue to wear her CPAP at [...] CPAP. Assessment & Plan (07/30/2020 10:33 AM POPCORN ATTENDANT): The patient continues to benefit from CPAP at 9 cm water pressure. Her DME is [employer]. I will order an overnight pulse oximetry recording on CPAP through [employer]. Assessment & Plan (04/21/2020 10:00 AM POPCORN ATTENDANT): On cpap. Sees Dr. Dwyer yearly Assessment & Plan (04/18/2019 9:02 AM POPCORN ATTENDANT): On CPAP nightly and benefits from it Essential hypertension 12/10/2015 Assessment & Plan (07/14/2023 9:03 AM POPCORN ATTENDANT): Stable continue losartan 100 mg. Assessment & Plan (05/07/2023 7:34 PM POPCORN ATTENDANT): Controlled/stable. Continue current meds and plan Assessment [...] monitor Assessment & Plan (05/04/2021 7:08 PM POPCORN ATTENDANT): Doing wel. Last visit was down to 136/84. rediscuss at next visit. (since been on cpap longer) Assessment & Plan (09/03/2020 10:43 AM CDT): Home readings down to 136/84 (nromally running 140-150/80-90). On losartan 100. When went up to losartan in past Thinks it may have caused lower back pain and leg pain. (ziac) Assessment & Plan (06/17/2020 7:49 AM POPCORN ATTENDANT): BP eleavted today - at first 180/84 then came down to 146/86. Has been well controlled on that dose in past she says. She has many intolerances to BP meds. I advised her to check home BP readings x 1 wk and RTC when pain has improved to recheck BP and manage meds if needed. Assessment & Plan (04/22/2020 6:35 PM POPCORN ATTENDANT): On losartan 100mg (lasix?). cmp ok 3mo ago. Check for microalbuminuria (pamela w/ elevated FBS's). Check home blood pressure readings. Assessment & Plan (04/18/2019 11:42 AM POPCORN ATTENDANT): Improved Continue losartan 100 mg daily Low [...] effects Assessment & Plan (05/04/2021 7:07 PM POPCORN ATTENDANT): Normalized in july to 38. Cont 5000/day Assessment & Plan (09/03/2020 10:47 AM CDT): Taking 5000 daily. No major difference. Recheck in 3mo since started oxygen Assessment & Plan (07/21/2020 5:59 PM POPCORN ATTENDANT): Improved to 20. Check pancreatic enzymes Assessment & Plan (04/21/2020 10:05 AM POPCORN ATTENDANT): Last checked 11/19/18. (low at 27). Gets [...] MVI Assessment & Plan (05/04/2021 7:09 PM POPCORN ATTENDANT): Finally down to normal in January.(off b12). Will recheck in future Assessment & Plan (09/03/2020 10:47 AM CDT): Too high even on 500/day. Suspect from liver disease. Stop b12 completely. Will recheck. Assessment & Plan (04/21/2020 10:22 AM POPCORN ATTENDANT): Initial level unclear. Last levels were high at 1370-9918 in 2017. recheck Osteoporosis 10/22/2015 Assessment & Plan (10/14/2021 11:57 AM CDT): Monica. On prolia Assessment & Plan (05/04/2021 7:04 PM POPCORN ATTENDANT): Saw Dr Anderson. To get prolia shots. 2nd injection in 2 weeks Assessment & Plan (04/21/2020 11:00 AM POPCORN ATTENDANT): Last vit D low. (see vit D def in a/p). Last dexa 2016. Need to get resutls. H/o bowel (colon) resection and possible kidney stones. Need to check PTH levels as well. Ionized calcium. Taking supplements. H/o bilateral sacral fractures on prior CT. Recheck DEXA Assessment & Plan (04/18/2019 9:02 AM POPCORN ATTENDANT): Bone Healthy Diet and lifestyle Ca and vit D rich foods Ca and vit D supplementation daily Fall precautions Weight bearing Exercises IBS (irritable bowel syndrome) 10/22/2015 Osteoarthritis of knee 01/02/2009 Assessment & Plan (05/04/2021 7:03 PM POPCORN ATTENDANT): Follow up with ortho for injections. Rheum workup to monitor. Cont to see Dr. Campbell. Awaiting feedback on further labs Resolved Problems Problem Noted Date Diagnosed Date Resolved Date Influenza A 05/22/2024 06/06/2024 Assessment & Plan (05/22/2024 3:01 PM POPCORN ATTENDANT): History of asthma. Wheezing today with influenza [...] in 6 months Establishing care with jose calderajose a, encounter for 09/27/2023 05/22/2024 Assessment & Plan [...] to continue lymphedema therapy, perhaps OT in [place] Continue as per their recommendations Return in 1 month Chronic bronchitis, unspecif ied chronic bronchitis type 09/27/2023 05/22/2024 Medication side effects 08/05/2023 1207/2023 Dizziness 08/05/2023 05/22/2024 Skin rash-annular w/ raised borders 08/04/2023 05/22/2024 Bilateral lower extremity pain 06/10/2023 06/06/2024 Assessment & Plan (06/10/2023 1:20 PM POPCORN ATTENDANT): Chronic lower extremity burning stabbing pain to [...] 06/06/2024 Assessment & Plan (04/27/2023 4:44 PM POPCORN ATTENDANT): Asymptomatic, short episodes of NSVT. Overall very [...] control Assessment & Plan (06/29/2023 12:33 PM POPCORN ATTENDANT): Patient continue with albuterol as needed up [...] use until she gets her Breo from [facility] pharmacy. I have also advised the patient [...] cost. Assessment & Plan (06/18/2022 11:43 AM POPCORN ATTENDANT): She is going to start a diet soon and try to lose weight. Assessment & Plan (12/16/2021 10:46 AM CDT): The patient continues to diet and lose weight. Assessment & Plan (08/12/2021 9:41 AM CDT): The patient has been able lose about 5 lb. Assessment & Plan (07/14/2021 10:33 AM POPCORN ATTENDANT): The patient is going to try to lose weight. Assessment & Plan (04/17/2021 11:11 AM POPCORN ATTENDANT): Patient states she does want to start [...] p.r.n. Assessment & Plan (06/29/2023 12:33 PM POPCORN ATTENDANT): The patient continues to use oxygen at home as a p.r.n. basis. Assessment & Plan (03/29/2023 12:45 PM CDT): The patient is agreeable to have the oxygen sent to her house. The patient did require 2 L with activity. Assessment & Plan (06/18/2022 11:43 AM POPCORN ATTENDANT): On her most recent 6 minute walk [...] up. Assessment & Plan (07/14/2021 10:33 AM POPCORN ATTENDANT): The patient complains of dyspnea on exertion despite using oxygen at 1 liter/minute via nasal cannula. I was informed by [facility] that she needs to requalify for her oxygen and therefore, I will order a 6 minute walk test. Assessment & Plan (04/17/2021 11:15 AM POPCORN ATTENDANT): Patient continue to use 1 L of oxygen with activity. I did send an order over to [facility] to tack picker the large oxygen concentrator. The patient does [...] going to have an appointment with the design manager on the 19 of September. Cardiomegaly 08/19/2020 [...] Lasix. Assessment & Plan (07/30/2020 10:33 AM POPCORN ATTENDANT): The patient has gained weight and complains [...] Diet? Assessment & Plan (05/08/2020 11:37 AM POPCORN ATTENDANT): Has hypercalcemia. Workup and treat hypercalcemia (see above). Off calcium. Still on vit D. Off water pills. Suggests hypercalciuria. 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 Will recheck for [...] 12/11/2020 Assessment & Plan (04/21/2020 10:23 AM POPCORN ATTENDANT): Last checked 04/18. Running over time 117-130. Advise home readings to check. Last hga1c normal at 6.1. Assessment & Plan (04/18/2019 9:01 AM POPCORN ATTENDANT): A1c: 6.1% Watch sugars and carbs in [...] 03/01/2024 Assessment & Plan (04/18/2019 9:02 AM POPCORN ATTENDANT): Follows with Dr. Guerrier Nausea 04/11/2018 12/11/2020 Restless legs syndrome (RLS) 03/29/2017 12/05/2018 Overview (09/05/2018): on gabapentin at hs Personal history of malignan t neoplasm of cervix uteri 06/28/2016 04/21/2020 Lumbago with sciatica, unspecified side 06/28/2016 12/11/2020 Assessment & Plan (06/17/2020 7:52 AM POPCORN ATTENDANT): Unlikely related to green losartan pill. Likely [...] Will obtain X-ray, Start robaxin. Follow with [facility] as well. Consider PT in future - suspect it is the cause of the muscle cramps she is experiencing Immunizations Immunization Administration Dates Next Due Influenza, [...] 04/16/2014 ZOSTER LIVE 05/31/2010 [facility] Recombinant 04/09/2020,02/09/2020 Social History Tobacco Use Types Packs/Day Years [...] on file Legal Sex Female 1:00 AM POPCORN ATTENDANT Gender Identity Female 02/12/2021 8:58 AM CDT Sexual Orientation Straight 04/21/2020 5: 12 PM POPCORN ATTENDANT Last Filed Vital Signs Vital Sign Reading [...] 09/04/2024 10:37 AM CDT Plan of Treatment Not on file Medical Devices Implanted Type Area Wood Last Maker Device Identifier Shelf Expiration Date Model / [...] unspecified type MAMMOGRAPHY Routine 06/15/2024 7:16 AM POPCORN ATTENDANT MAMMOGRAPHY Routine 06/15/2024 7:13 AM POPCORN ATTENDANT DEXA TBS AXIAL SKELETON BONE DENSITY 1 [...] Joel Monteiro M.D. GALDINO: GALDINO Report ID: [id number] Reading Location: [id number] Procedure Note Marvin Monteiro MD - 09/04/2024 [...] Joel Monteiro M.D. GALDINO: GALDINO Report ID: [id number] Reading Location: [place] [address] Grady Grant MD IMG CT PROCEDURES Final Res ult * Urine culture Urine, clean voided (09/04/2024 11:05 AM CDT) Report Final Report: Less than 100,000 colonies/mL (clinically insignificant growth based on current clinical standards) Comment:Testing performed by : [facility], [address] [place]., [address] Organism (CLINICALLY INSIGNIFICANT GROWTH JILLIAN Urine, clean voided 09/04/2024 11:05 AM CDT 09/05/2024 2:11 AM CDT Narrative JILLIAN MORA - 09/06/2024 7:00 AM CDT Testing performed by [facility] Microbiology Laboratory ([phone]) Grady Grant MD LAB MICROBIOLOGY - GENERAL ORDERABLES Final Result JILLIAN MORA [address] [place] [address] * (ABNORMAL) POCT urinalysis dipstick (09/04/2024 10:49 AM CDT) Glucose, ur, POC Negative Negative MG/DL Bilirubin, ur, POC Negative Negative, Small, Moderate, Large Ketones, ur, POC Negative Negative Specific [place], POC 1.010 1.003 - 1.030 Blood, ur, POC Large(A) Negative pH, ur, POC 6.5 5.0 - 8.0 Protein, ur, POC 30.(A) Negative Urobilinogen, urine, POC 0.2 0.2 - 1.0 mg/dL Nitrite, ur, POC Negative Negative Leukocytes, ur, POC Negative Negative Lot Number [id number] Urine 09/04/2024 10:4 9 AM CDT Result [facility] Grady Grant MD POINT OF CARE TEST ORDERABL ES Final Result * MAMMOGRAPHY (06/15/2024 7:16 AM POPCORN ATTENDANT) Tatyana Sequeira MD HEALTH MAINTENANCE Final Result * MAMMOGRAPHY (06/15/2024 7:13 AM POPCORN ATTENDANT) Mammography Normal Kirit Manriquez MD HEALTH MAINTENANCE Final Re sult * Dexa TBS Axial Skeleton Bone Density 1 or more sites (12/24/2023 1:43 PM CDT) Anatomical Region Laterality Modality Wrist, Body N/A Radiographic Fatoumata ging Narrative 12/24/2023 4:34 PM CDT Patient Name: Olive Abbott Date of : 1940 Date of scan: 12/24/2023 Bone mineral density was performed on a [employer] Discovery Densitometer. Based on machine cross-calibration and [...] by the International Society of Clinical Densitometry. [id number] us Elvi Pringle MD IMG DXA PROCEDURES Final R esult * COLONOSCOPY (04/07/2022) Scribed Colonoscopy Abnormal us Nevaeh Boo MD HEALTH MAINTENANCE Final Result from Last 3 Months or Most Recently Relevant to Health Maintenance Insurance MEDICARE [facility] MEDICARE [facility] FEDERAL Care Teams Tongue And Groove Machine Operator Relationship Specialty Start Date End Date Grady Grant MD [address] [place] [address] PCP - General Family Medicine 09/27/23 Kelle Kumar, EDITOR FARM JOURNAL Gastroenterology 09/28/18 Sriram Greer MD [address] [facility] [facility] [address] [address] Consulting Physician Rheumatology 12/05/18 Castro Guerrier MD [address] [facility] [address] [place] [address] Referring Physician Gastroenterology 12/05/18 Herrera Jorge MD [address] [place], [place] [id number] Referring Physician Orthopedic Surgery 04/21/20 Zoe Villalpando MD [address] [place] [address] Referring Physician Dermatology 09/27/23
--- OUTSIDE RECORDS SUMMARY | 2024-09-08 15:55 | XMS_ITS | Encounter Summary ---
Author Organization [facility] Address [address] [place] [address] Care Team Providers Care Prep Cook Name Role Phone Unavailable Primary Care Provider Unavailabl e Encounter Details Date Type Department Care Team (Late st Contact Info) Description 12/04/2006 Outpatient Historical [facility] Adult Critical Care [address] [address] Onur Meek MD Social History Tobacco Use Types Packs/Day Years Used Date Smoking Tobacco: Never Assessed Comments Unknown Sex and Gender Information Value Date Recorded Sex Assigned at Not on file Legal Sex Female 4:11 AM MANAGER SUPPLY CHAIN PLANNING Gender Identity Not on file Sexual Orientation Not on file documented as of this encounter Plan of Treatment Not on file documented as of this encounter Visit Diagnoses Not on filedocumented in this encounter
--- OUTSIDE RECORDS SUMMARY | 2024-09-08 15:55 | XMS_ITS | Encounter Summary ---
Author Organization [employer] Address [address] [place] [address] Care Team Providers Care Aviation All Source Intelligence Name Role Phone Unavailable Primary Care Provider Unavailabl e Encounter Details Date Type Department Care Team (Late st Contact Info) Description 11/22/[address] [facility] Support Serv. (Adt Cardiology[facility]) [address] [place] [phone] Fidel Prado MD [address] [place] [address] [address] [place] [address] Social History Tobacco Use Types Packs/Day Years Used Date Smoking Tobacco: Never Assessed Comments Unknown Sex and Gender Information Value Date Recorded Sex Assigned at Not on file Legal Sex Female 4:11 AM OCEANOGRAPHER PHYSICAL Gender Identity Not on file Sexual Orientation Not on file documented as of this encounter Plan of Treatment Not on file documented as of this encounter Visit Diagnoses Not on filedocumented in this encounter
--- OUTSIDE RECORDS SUMMARY | 2024-09-08 15:55 | XMS_ITS ---
Author Organization [facility] Address [address] [facility] [address] [place] [address] Care Team Providers Care Bid Analyst Name Role Phone Uyen SIEGEL, Walter Primary Care Provider Sriram Panda [phone] Medications Medication SIG (Take, Route, Frequency, Duration) Notes Start Date End Date Status HYDROcodone-Acetamino phen 5-325 MG 1 tablet Orally every 8 hrs As needed. Dx=low back pain M54.9, joint pain M25.50. Dx=low back pain 08/11/2024 Active Encounters Encounter Location Date Provider Diagnosis [facility] [address] [place] [address] 07/07/2024 Sriram Gamboa Dorsalgia, unspecified M54.9 Assessments Encounter Date Diagnosis (ICD Code) Assessment Notes Treatment Notes Treatment Clinical Notes Section Notes 07/07/2024 Dorsalgia, unspecified (ICD-10 - M54.9) Plan Of Treatment Medication Medication Name Sig Start Date Stop Date Notes HYDROcodone-Acetaminophen 5-325 MG 1 tablet Orally every 8 hrs 08/11/2024 Dx=low back pain Next Appt Details Provider Name:Sriram gilbert, 10/04/2024 10:30:00 AM, [address] [facility] [address], [place], [address], Progress Notes * Olive ABBOTT JackieDOB:[birth year] (84 yo F)Acc No.[id number]:07/07/2024 Patient: Olive ROB :1940 A ge:84 Y S ex:Female Address:[address] [place] [address], [address] * Refills Refill HYDROcodone-Acetaminophen Tablet, 5-325 MG, Orally, 90, 1 tablet, every 8 hrs, Refills=0 * true * Date: Generated for Azra guzman/Alden/Justiceitting on: 0 09/08/2024 03:55 PM CDT
--- OUTSIDE RECORDS SUMMARY | 2024-09-08 15:55 | XMS_ITS | Clinical Summary ---
Author Organization [facility] Address [address] [place] [address] Care Team Providers Care Pharmacologist Name Role Phone Unavailable Primary Care Provider Unavailabl e Social History Tobacco Use Types Packs/Day Years Used Date Smoking Tobacco: Never Assessed Comments Unknown Sex and Gender Information Value Date Recorded Sex Assigned at Not on file Legal Sex Female 8:33 PM CDT Gender Identity Not on file Sexual Orientation Not on file Plan of Treatment Health Maintenance Due Date Last Done Comments DTaP, Tdap and Td Vaccines ( 1 - Tdap) 1961 Zoster Vaccines (1 of 2) 1992 Dexa Scan (General) 2007 Pneumococcal Vaccine: 65+ Ye ars (1 of 1 - PCV) 2007 RSV Immunization or 60+ Years (1 - 1-dose 75+ series) 2017 COVID-19 Vaccine (2023-2 5 season) 2024 Meningococcal B Vaccine Aged Out No l onger eligible based on patient's age to complete this topic Meningococcal Vaccine Aged Out No kady aakash eligible based on patient's age to complete this topic RSV Immunizations Under 20 Months Aged Out No longer eligible based on patient's age to complete this topic
--- OUTSIDE RECORDS SUMMARY | 2024-09-08 15:56 | XMS_ITS | Patient Health Record ---
Author Organization [facility] Address [address] [place], [place] [address] Care Team Providers Care Contour Grinder Name Role Phone JONH ESQUIVEL Unavailable [phone] Grady Grant Unavailable Unavailable Allergies Allergen (clinical drug ingredient) Drug/Non Drug Allergy documented on EMR Reaction Allergy Type Onset Date Status ampicillin Ampicillin Unknown Drug Allergy 09/13/2012 acti ve Reason For Referral No Information Immunizations Vaccine Route Administration Date Status Comme nts Influenza, high dose seasonal Unknown 02/23/2023 Admini stered Vital Signs Height-cm 157.48 cm 03/27/2024 Weight-kg 104.78 kg 03/27/2024 Height 62.00 in 03/27/2024 Weight 231 lbs 03/27/2024 BMI 42.25 kg/m2 03/27/2024 Encounters Encounter Location Date Provider Diagnosis [facility] [address] [place] [id number] 11/08/2023 JONH SNOOK Tinea unguium B35.1 ; Pain in right toe(s) M79.674 ; Pain in left toe(s) M79.675 and Atherosclerosis of [place] arteries of extremities with intermittent claudication, bilateral legs I70.213 [facility] [address] [place], [place] [id number] 01/17/2024 JONH SNOOK Tinea unguium B35.1 ; Pain in right toe(s) M79.674 ; Pain in left toe(s) M79.675 and Atherosclerosis of [place] arteries of extremities with intermittent claudication, bilateral legs I70.213 [facility] [address] [place] [id number] 03/27/2024 JONHJEFFERY LIANGK Tinea unguium B35.1 ; Pain in right toe(s) M79.674 ; Pain in left toe(s) M79.675 and Atherosclerosis of [place] arteries of extremities with intermittent claudication, bilateral legs I70.213 [facility] [address] [place] [id number] 06/26/2024 JONH LIANGK Tinea unguium B35.1 ; Pain in right foot M79.671 ; Pain in left foot M79.672 ; Atherosclerosis of [place] arteries of extremities with intermittent claudication, bilateral legs I70.213 and Acquired keratosis [keratoderma] palmaris et plantaris L85.1 Assessments Encounter Date Diagnosis (ICD Code) Assessment Notes Treatment Notes Treatment Clinical Notes Section Notes 11/08/2023 Tinea unguium (ICD-10 - B35.1) FUNGAL TOENAILS: Discussed various treatment options for fungal toenails including debridement, topical antifungals, oral antifungals, toenail avulsion, or toenail matrixectomy. NAIL DEBRIDEMENT: Nails 1-5 Bilateral were debrided extensively with nail nippers and emery board, reducing length and girth to pink healthy tissue with any subungual debris and necrotic tissue removed 11/08/2023 Pain in right toe(s) (ICD-10 - M79.674) 01/17/2024 Tinea unguium (ICD-10 - B35.1) FUNGAL [...] in right toe(s) (ICD-10 - M79.674) 03/27/2024 Tinea unguium (ICD-10 - B35.1) FUNGAL [...] Pain in right toe(s) (ICD-10 - M79.674) 06/26/2024 Tinea unguium (ICD-10 - B35.1) Nails 1-5 Bilateral were debrided extensively with nail nippers and emery board, reducing length and girth to pink healthy tissue with any subungual debris and necrotic tissue removed 06/26/2024 Pain in right foot (ICD-10 - M79.671) 06/26/2024 Pain in left foot (ICD-10 - M79.672) 03/27/2024 Pain in left toe(s) (ICD-10 - M79.675) 01/17/2024 Pain in left toe(s) (ICD-10 - M79.675) 11/08/2023 Pain in left toe(s) (ICD-10 - M79.675) 11/08/2023 Atherosclerosis of [place] arteries of extremities with intermittent claudication, bilateral legs (ICD-10 - I70.213) 01/17/2024 Atherosclerosis of [place] arteries of extremities with intermittent claudication, bilateral legs (ICD-10 - I70.213) 03/27/2024 Atherosclerosis of [place] arteries of extremities with intermittent claudication, bilateral legs (ICD-10 - I70.213) 06/26/2024 Atherosclerosis of [place] arteries of extremities with intermittent claudication, bilateral legs (ICD-10 - I70.213) 06/26/2024 Acquired keratosis [keratoderma] palmaris et plantaris (ICD-10 - L85.1) A total of 2 corns or calluses, as described in the note above, were cut and pared utilizing a #15 blade Plan Of Treatment Next Appt Details Provider Name:JONH SIERRA, 01:20:00 PM, [address], [address], [phone], Insurance Providers Payer Name Payer Address Payer Phone Subscriber Number Group Number Insured Name Patient Relationship to Insured Coverage Start Date Coverage End Date Medicare Part B [place] [address] [place] [phone] [id number] LOUANN GUTIERREZ Self - patient is the insured [facility] ([facility]) ATTN CLAIMS [address] [place] [address] [id number] LOUANN GUTIERREZ Self - patient is the insured
--- OUTSIDE RECORDS SUMMARY | 2024-09-08 15:56 | XMS_ITS | Clinical Summary ---
Author Organization [facility] Address [address] [place] [address] Care Team Providers Care Soft Sugar Cutter Name Role Phone Grady Grant MD Primary Care Provider [phone] Source Comments [facility] Affiliates and Associated Physician Practices is amultiple site organization consisting of ambulatory clinics and hospital sitesin [place], [place], [place] and [place]. This disclosure is being madepursuant to the Care Everywhere program and may not contain all information available regarding this patient. Last updated 18.[facility] Allergies Active Allergy Reactions Criticality Noted Date Comments Ampicillin Rash Low 04/11/2010 Aspirin Unknown Low 02/26/2023 Abdominal discomfort Medications * Be aware that medications may not be up to date on this document. Alwaysverify current medications with the patient. Medication Sig Dispensed Refills Start Date End Date Status HYDROcodone-acetam inophen (NORCO) 5-325 MG tablet 1 (one) tablet 1 TID prn 09/15/2016 Active Polyvinyl Alcohol-Povidone (REFRESH OP) Instill 1 drop into both eyes at bedtime Active ondansetron (ZOFRAN) 4 MG tablet Take 1 (one) tablet by mouth Active albuterol HFA (PROVENTIL;VENTOLI N;PROAIR) 108 (90 Base) MCG/ACT inhaler Inhale 2 (two) puffs by mouth every 6 hours as needed 12/19/2020 Active denosumab (PROLIA) 60 MG/ML SC injection Inject 1 mL subcutaneously Every 180 days Active isosorbide mononitrate CR 24hr (IMDUR) 60 MG tablet Take 1 (one) tablet by mouth once daily 10/31/2020 Active vitamine D3 (Cholecalciferol) 250 MCG (75676 UT) capsule Take 2,000 Units by mouth once daily Active aMILoride (Midamor) 5 MG tablet Take 5 mg by mouth every 3 days Active losartan (Cozaar) 100 MG tablet Take 1 (one) tablet by mouth once daily 11/11/2021 Active multivitamins (One A Day) capsule Take 1 (one) capsule by mouth once daily Active fluticasone-vilant reyes (Breo Ellipta) 100-25 MCG/INH inhaler Inhale 1 (one) puff by mouth once daily Administer at the same time each day. Rinse mouth after using Active docusate sodium (Colace) 100 MG capsule Take 1 (one) capsule by mouth once daily as needed for Constipation Active Nystop 504951 UNIT/GM powder APPLY TOPICALLY 4 TIMES A DAY 11/23/2022 Active Wegovy 1 MG/0.5ML pen 11/23/2022 Active clopidogrel (plaVIX) 75 MG tablet 02/26/2023 Active clobetasol (Temovate) 0.05 % solutionIndication s:Lichen planopilaris Apply to scalp twice daily. 50 mL 5 03/02/2023 Active furosemide (Lasix) 20 MG tablet 08/30/2023 Active metoprolol succinate XL 24hr (Toprol XL) 50 MG tablet 07/17/2023 Active prasugrel (Effient) 10 MG tablet 07/17/2023 Active fluocinonide (Lidex) 0.05 % solutionIndication s:Other seborrheic dermatitis APPLT TO AFFECTED SCALP TWICE DAILY 40 mL 2 02/01/2024 Active finasteride (Proscar) 5 MG tabletIndications: Female pattern hair loss,Lichen planopilaris Take 1 (one) tablet by mouth once daily 90 tablet 3 02/01/2024 Active triamcinolone acetonide (Kenalog) 0.1 % creamIndications:D ermatitis Apply to hands and legs twice daily as needed, 30 days supply. Reasons: Skin Inflammation 80 g 5 02/01/2024 Active predniSONE (Deltasone) 10 MG tablet 06/29/2024 Active tacrolimus (Protopic) 0.1 % ointmentIndication s:Other eczema Apply to affected area on vulvar two times daily as needed for itch/burning. 30 days supply. 60 g 3 06/30/2024 Active pentoxifylline CR (TRENtal) 400 MG tabletIndications: Lipodermatoscleros is TAKE 1 TABLET BY MOUTH THREE TIMES DAILY 90 tablet 4 07/25/2024 Active Active Problems Problem Noted Date Diagnosed Date Other seborrheic dermatitis 04/30/2020 Assessment & Plan (04/30/2020 11:24 AM HUMAN SERVICES PROFESSIONAL): Continue Ketoconazole shampoo tiw Arthritis 01/23/2020 Verruca vulgaris 01/23/2020 Encounter for Medicare annual wellness exam 03/31 Overview (01/23/2020): Last Assessment & Plan: Wear sunscreen while outdoors. 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 [employer] Sucrose Digestion test = 2.07, normal is > 5.10% in females. She was started on Sucraid rx by them Class 2 severe obesity due t o excess calories with serious comorbidity and body mass index (BMI) of 38.0 to 38.9 in adult 12/05/2018 Overview (01/23/2020): Last Assessment & Plan: Recommend Whole 30 or Weight watchers Need to stop eating out as much Abnormal glucose 06/03/2018 Overview (01/23/2020): Last Assessment & Plan: A1c: 6.1% Watch sugars and carbs in diet. Work on exercise and weight loss Nausea 04/11/2018 Personal history of colonic polyps 04/11/2018 Overview (03/01/2024): Last Assessment & Plan: Follows with Dr. Guerrier IMO Replacement Utility 03/01/2024 Hepatomegaly 04/08/2018 Rotator cuff syndrome of left shoulder 8 Generalized osteoarthritis of multiple sites Overview (01/23/2020): feet, hands, spine,knees on Euless 2-3 a day, on prednisone 7.5mg daily Last Assessment & Plan: Sees [employer] for her OA pain. Given Euless from them Personal history of malignant neoplasm of cervix uteri 06/28/2016 Lumbago with sciatica, unspecified side 06/28/19 17 Overview (01/23/2020): Last Assessment & Plan: Will obtain X-ray, Start robaxin. Follow with [employer] as well. Consider PT in future - suspect it is the cause of the muscle cramps she is experiencing NICOLLE (obstructive sleep apnea) 2016 Overview (01/23/2020): on CPAP Last Assessment & Plan: On CPAP nightly and benefits from it Hypertension 12/10/2015 Overview (01/23/2020): many BP pill intolerance Last Assessment & Plan: Improved Continue losartan 100 mg daily Low salt diet Continue to work on weight loss IBS (irritable bowel syndrome) 10/22/2015 Osteoporosis 10/22/2015 Overview (01/23/2020): Last Assessment & Plan: Bone Healthy Diet and lifestyle Ca and vit D rich foods Ca and vit D supplementation daily Fall precautions Weight bearing Exercises Vitamin B12 deficiency 10/22/2015 Vitamin D deficiency 10/22/2015 Overview (01/23/2020): Last Assessment & Plan: Level still low. Continue supplementation. Try to get some natural sources of vitamin D and calcium Osteoarthritis of knee 01/02/2009 Encounters Date Type Department Care Team Description 07/24/2024 Refill [facility] - General Dermatology [address] [place] [address] Zoe Villalpando MD Refill Request 06/30/2024 4:00 PM HUMAN SERVICES PROFESSIONAL Office Visit [facility] - General Dermatology [address] [place] [address] Zoe Villalpando MD Lipodermatosclerosis (Primary Dx); Other seborrheic dermatitis; Female pattern hair loss; Hand dermatitis; Other eczema 06/30/2024 Travel from Last 3 Months Family History Medical History Relation Name Comments None Known Brother None Known Father None Known Maternal Aunt None Known Maternal Grandfather None Known Maternal Grandmother None Known Maternal Uncle None Known Mother None Known Other None Known Paternal Aunt None Known Paternal Grandfather None Known Paternal Grandmother None Known Paternal Uncle None Known Sister Asthma Neg Hx CVA Neg Hx Cancer - Breast Neg Hx Cancer - Other Neg Hx Cancer - Skin, Melanoma Neg Hx Cancer - Skin, Non Melanoma Neg Hx Eczema Neg Hx Hemophilia Neg Hx Psoriasis Neg Hx Relation Name Status Comments Brother Father Maternal Aunt Maternal Grandfather Maternal Grandmother Maternal Uncle Mother Other Paternal Aunt Paternal Grandfather Paternal Grandmother Paternal Uncle Sister Social History Tobacco Use Types Packs/Day Years Used Date Smoking Tobacco: Former Cigarettes Q uit: 05/31/1999 Smokeless Tobacco: Never Tobacco Cessation:Counseling Given: Not Answered Alcohol Use Standard Drinks/Week Comments Yes 1 (1 standard drink = 0.6 oz pur e alcohol) Sex and Gender Information Value Date Recorded Sex Assigned at Not on file Gender Identity Not on file Sexual Orientation Not on file Last Filed Vital Signs Vital Sign Reading Time Taken Comments Blood Pressure 148/92 04/11/2010 10:27 AM HUMAN SERVICES PROFESSIONAL Pulse 64 04/11/2010 10:27 AM HUMAN SERVICES PROFESSIONAL Temperature 36.8 C (98.3 F) 04/11/2010 10:27 AM HUMAN SERVICES PROFESSIONAL Respiratory Rate - - Oxygen Saturation 100% 04/11/2010 10:27 AM HUMAN SERVICES PROFESSIONAL Inhaled Oxygen Concentration - - Weight 83.9 kg (185 lb) 04/11/2010 10:27 AM HUMAN SERVICES PROFESSIONAL Height 157.5 cm (5' 2 ) 04/11/2010 10:27 AM HUMAN SERVICES PROFESSIONAL Body Mass Index 33.84 04/11/2010 10:27 AM HUMAN SERVICES PROFESSIONAL Plan of Treatment Upcoming Encounters Date Type Department Care Team (Late st Contact Info) Description 01/30/2025 9:40 AM CDT Office Visit [facility] - General Dermatology [address] [place] [address] Zoe Villalpando MD [address] [facility] [address] [place] [address] Health Maintenance Due Date Last Done Comments MEDICARE AWV 12 MONTHS 1942 DTAP/TDAP/TD VACCINES (1 - Tdap) 1961 PNEUMOCOCCAL VACCINE 50+ (1 of 1 - PCV) 1992 ZOSTER VACCINE (1 of 2) 1992 Respiratory Syncytial Virus (RSV) Vaccine Pt: or over 60 yrs (1 - 1-dose 75+ series) 2017 COVID-19 VACCINE ( - season) 2024 09/24/2021, 03/25/2021, 08/09/2020, Additional history exists DEPRESSION SCREENING 05/31/2024 BONE DENSITY TESTING Completed 11/25/2021, 06/11/19 21 INFLUENZA VACCINE Completed 02/17/2024, , 02/28/2022, Additional history exists HEPATITIS B VACCINE Aged Out No longe r eligible based on patient's age to complete this topic HIB VACCINE Aged Out No longer eligi ble based on patient's age to complete this topic HPV VACCINE Aged Out No longer eligi ble based on patient's age to complete this topic MENINGOCOCCAL (Group B) VACCINE SHARED DECISION-MAKING Aged Out No longer eligible based on patient's age to complete this topic MENINGOCOCCAL GROUPS A/C/Y/W VACCINE Aged Out No longer eligible based on patient's age to complete this topic Care Teams Soft Sugar Cutter Relationship Specialty Start Date End Date Grady Grant MD [address] [facility] [address] [place] [address] PCP - General Family Medicine 02/01/24
== END 2024-09-08 15:50 | disposition home or self-care (01) ==
PROVIDERS: PCP Family Medicine; Visit Provider Physician Assistant Medical
DX: N20.0 Calculus of kidney (principal)
CPT/HCPCS: 74018